=== PATIENT | female | born 1940 | race Caucasian/White ===

== ENCOUNTER → 2017-01-10 | Outpatient (CLI) | payer MEDICARE, BC ==
--- NOTE | 2017-01-10 11:14 | US ---
EXAMINATION TYPE: US thyroid st tissue head/neck DATE OF EXAM: 01/10/2017 COMPARISON: NONE CLINICAL HISTORY: E04.1 NONTOXIC SINGLE THYROID NODULE. Had prior US at former Dr [facility] GLAND SIZE: Right Lobe: 3.7 x 1.6 x 1.6 cm Overall Parenchyma: heterogenous Left Lobe: 33 x 1.4 x 0.9 cm Overall Parenchyma: heterogeneous Isthmus Thickness: 0.6 cm NODULES RIGHT: # of nodules measured on right: 2 1. 0.4 X 0.5 x 0.4 cm hypoechoic cystic nodule at the mid pole with well-defined margins; present w ith wall calcification. This nodule is wider than tall and shows no intranodular vascularity. Prior size: no prior US here 2. 0.6 X 0.4 x 0.3 cm hypoechoic cystic nodule at the lateral mid pole with well-defined margins. T his nodule is wider than tall and shows no intranodular vascularity. LEFT: # of nodules measured on left: 2 1. 0.4 X 0.3 x 0.3 cm hypoechoic cystic nodule at the lower lateral pole with well-defined margins. This nodule is wide as is tall and shows no intranodular vascularity. 2. 0.3 X 0.3 x 0.2 cm hypoechoic cystic nodule at the mid pole with well-defined margins; interrupte d peripheral calcification. This nodule is wider than tall and shows no intranodular vascularity. ISTHMUS: # of nodules measured in the isthmus: 0 Bilateral neck scanned, no evidence of lymphadenopathy. IMPRESSION: 1. Bilateral thyroid nodules all which measure less than 1 cm.
--- NOTE | 2017-01-10 12:18 | FL ---
EXAMINATION TYPE: FL barium swallow DATE OF EXAM: 01/10/2017 COMPARISON: 11/18/2010 HISTORY: Dysphasia TECHNIQUE: Single contrast barium swallow FINDINGS: 38 seconds of fluoroscopy provided. Barium was swallowed without difficulty and passed and the esophagus without delay. Occasional tertia ry contractions of esophagus. There is no evidence of hiatal hernia or gastroesophageal reflux. Degenerative change of the cervical spine noted. There was a posterior indentation of the cervical es ophagus C4-C5 level which could represent a prominent cricopharyngeus muscle. Correlate with direct v isualization as clinically warranted to exclude lesion. No obstruction identified. IMPRESSION: 1. Posterior indentation of the cervical esophagus at the level of C5 may be related to prominent cri copharyngeus muscle appears external most likely. Also appears to been present in 2010 with no signif icant interval change. Correlate with direct visualization as clinically warranted. 2. Occasional tertiary contractions of esophagus with no evidence of obstruction.
== END | disposition home or self-care (01) ==
LOC: RADUSWWP 10:21
PROVIDERS: ATTEND Family Medicine
DX: E04.2 Nontoxic multinodular goiter (principal); K22.8 Other specified diseases of esophagus; R13.13 Dysphagia, pharyngeal phase
CPT/HCPCS: 74220; 76536

== ENCOUNTER 2017-02-02 07:41 | Day surgery (SDC) | payer MEDICARE, BC ==
[2017-01-28 14:21] VITALS: BMI 35.9
[~2017-02-02 07:41] MED LIST: LACTATED RINGERS 1,000 ML IV SCH
[2017-02-02 08:01] VITALS: RESP 18; TEMP 97.3
[2017-02-02] MEDS ORDERED: LIDOCAINE 1% 20 ML VIAL (10MG/ML) FOR IV START INTRADERMA ONE (08:12)
[2017-02-02 08:14] LABS: Glucose,Whole Blood 121 mg/dL (75-99)
[2017-02-02] MEDS ORDERED: PROPOFOL 10 MG/ML 20 ML VIAL IV ONE (08:35)
--- NOTE | 2017-02-02 08:45 | P.PCN ---
Date of Procedure: 02/02/17 Preoperative Diagnosis: Postoperative Diagnosis: Procedure(s) Performed: BRIEF HISTORY: Patient is a 76-year-old, pleasant, white female, scheduled for an upper endoscopy as part of evaluation of intermittent dysphagia to solids for the last 6 months duration. Lately her symptoms are progressively getting worse and hence dysphagia almost on a daily basis with bread mate etc .She is hence scheduled for an upper endoscopy with possible dilation today.. PROCEDURE PERFORMED: Esophagogastroduodenoscopy with biopsy and dilation PREOPERATIVE DIAGNOSIS: Progressive dysphagia to solids. IV sedation per anesthesia. PROCEDURE: After informed consent was obtained, the patient was brought into the endoscopy unit. IV sedation was administered by Anesthesia under continuous monitoring. Initially the Olympus GIF-140 video endoscope was inserted into the mouth. Esophagus intubated without any difficulty. It was gradually advanced into the stomach and duodenum and carefully examined. The bulb and the second part of the duodenum appeared normal. The scope at this time was withdrawn to the stomach, adequately insufflated with air, and upon careful examination, mucosa of the antrum, body, cardia and the fundus appeared normal. The scope was then withdrawn into the esophagus. Small hiatal hernia seen. The GE junction was located at 39 cm from the incisors. There was a distal esophageal stricture identified and at this time balloon dilation was performed using 15 and 16.5 mm TTS balloon as sequential fashion for 90 seconds. Also there were erosions noted in the distal esophagus consistent with LA grade B reflux esophagitis. The rest of the esophagus appeared normal. Biopsies were done from the distal esophagus and the patient tolerated the procedure well. IMPRESSION: 1. Distal esophageal stricture status post balloon dilation using 15 and 16.5 mm TTS balloon as described above. 2. LA Grade B reflux esophagitis. The. Small hiatal hernia RECOMMENDATIONS: The findings of this examination were discussed with the patient as well as a family. She was advised to remain on a clear liquid diet today. She was given her perception for Prilosec 20 mg daily and educated about antireflux measures. Implants: Indications for Procedure: Operative Findings: Description of Procedure:
[2017-02-02 09:14] VITALS: BP 142/67; PULSE 52
== END 2017-02-02 09:56 | disposition home or self-care (01) ==
LOC: ORWHC2ENDO 07:41
PROVIDERS: ATTEND Internal Medicine Gastroenterology
DX: K22.2 Esophageal obstruction (principal); K21.0 Gastro-esophageal reflux disease with esophagitis; K44.9 Diaphragmatic hernia without obstruction or gangrene; I10 Essential (primary) hypertension; E78.5 Hyperlipidemia, unspecified; G43.909 Migraine, unspecified, not intractable, without status migrainosus; E11.9 Type 2 diabetes mellitus without complications; M06.9 Rheumatoid arthritis, unspecified; Z79.82 Long term (current) use of aspirin; Z79.899 Other long term (current) drug therapy; Z91.040 Latex allergy status; Z88.0 Allergy status to penicillin; Z88.8 Allergy status to other drugs, medicaments and biological substances; Z91.09 Other allergy status, other than to drugs and biological substances; Z87.891 Personal history of nicotine dependence
CPT/HCPCS: 88305; 43239; 43249; J2704; C1726

== ENCOUNTER → 2017-02-07 | Outpatient (CLI) | payer MEDICARE, BC ==
--- NOTE | 2017-02-07 10:48 | US ---
EXAMINATION TYPE: US abdomen complete DATE OF EXAM: 02/07/2017 COMPARISON: NONE CLINICAL HISTORY: 76-year-old female R14.0 Abdominal Distention. No pain, NPO TECHNIQUE: Multiple sonographic images of the abdomen are obtained. FINDINGS: Liver Length: 15.9 cm Gallbladder Wall: 0.2 cm CHD: 0.3 cm Spleen: 8.3 cm Right Kidney: 10.6 x 4.4 x 4.4 cm Left Kidney: 9.6 x 4.2 x 5.2 cm Pancreas: Somewhat heterogeneous. Head and tail not well seen due to overlying bowel gas Liver: Echogenic and attenuating. This limits assessment for focal lesion. Gallbladder: wnl Evidence for sonographic Preston's sign: neg CBD: wnl Spleen: wnl Right Kidney: No hydronephrosis Left Kidney: Prominent pyramids . No hydronephrosis. Upper IVC: Limited visualization Abd Aorta: No AAA as visualized IMPRESSION: Suspect at least moderate hepatic steatosis. Correlate with LFTs, lipid profile, and patient risk fac tors.
== END | disposition home or self-care (01) ==
LOC: RADUSWWP 07:23
PROVIDERS: ATTEND Family Medicine
DX: R14.0 Abdominal distension (gaseous) (principal); Z88.6 Allergy status to analgesic agent; Z88.0 Allergy status to penicillin; Z88.8 Allergy status to other drugs, medicaments and biological substances
CPT/HCPCS: 76700

== ENCOUNTER → 2017-06-20 | Day surgery (SDC) | payer MEDICARE, BC ==
[2017-06-20 13:34] VITALS: TEMP 97; BMI 36.3
[2017-06-20 15:01] VITALS: BP 168/65; PULSE 51; RESP 18
--- NOTE | 2017-06-20 17:00 | MM ---
EXAMINATION TYPE: MG stereo VAD BX RT DATE OF EXAM: 06/20/2017 COMPARISON: 06/02/2016 and 06/02/2017 CLINICAL HISTORY: 77-year-old female status post left-sided lumpectomy and radiation therapy for alondra st cancer. Microcalcifications in the right breast, referred for stereotactic core needle biopsy. TECHNIQUE: Stereotactic guided core biopsy of the right breast. FINDINGS: The procedure of stereotactic guided core biopsy was explained to the patient. Benefits, a lternatives, and risks were discussed. An informed consent was then obtained. [facility] was [facility]. Shortness pathway was a lateral approach. I performed t he localization localization followed by the procedure. A vacuum assisted biopsy gun was used to obt ain 6 core samples. The patient tolerated the procedure well without any immediate complication. The patient was kept in the radiology department for short stay after the procedure and then discharged home in stable condi tion. Targeted calcifications are identified in specimen mammogram. Post biopsy mammogram shows the clip to appear in satisfactory position relative to the targeted area of concern on the preprocedure images. There may be slight 5 mm of lateral clip migration. IMPRESSION: SUCCESSFUL, UNCOMPLICATED STEREOTACTIC GUIDED CORE BIOPSY OF RIGHT BREAST 8-9 O'CLOCK MICROCALCIFICAT IONS; FULL PATHOLOGY RESULTS TO FOLLOW.
== END ==
LOC: RADMAMWWP 13:03
PROVIDERS: ATTEND Student in an Organized Health Care Education/Training Program
DX: D24.1 Benign neoplasm of right breast (principal); N60.21 Fibroadenosis of right breast; R92.1 Mammographic calcification found on diagnostic imaging of breast; N60.01 Solitary cyst of right breast; R92.0 Mammographic microcalcification found on diagnostic imaging of breast; Z85.3 Personal history of malignant neoplasm of breast; Z88.8 Allergy status to other drugs, medicaments and biological substances; Z88.6 Allergy status to analgesic agent; Z91.040 Latex allergy status
CPT/HCPCS: 88305; 19081; A4648; J2001; 88341; 88342

== ENCOUNTER → 2017-12-30 | Outpatient (CLI) | payer MEDICARE, BC ==
--- NOTE | 2017-12-30 13:29 | MR ---
EXAMINATION TYPE: MR lumbar spine wo con DATE OF EXAM: 12/30/2017 COMPARISON: NONE HISTORY: Spinal stenosis, lumbar region per order. Back pain up and down right side into right lower extremity for 1.5 years per patient. TECHNIQUE: Multiplanar, multisequence imaging of the lumbar spine is performed without IV contrast. FINDINGS: Survey images shows artifact from left hip surgery. Sagittal images of the lumbar spine lane w vertebral body heights to appear satisfactory. There is subtle grade 1 anterolisthesis of L4 on L5. Multilevel disc desiccation is seen. There is disc space narrowing with posterior spur disc complexe s effacing anterior thecal sac at T10-T11 and T11-T12 levels in the lower thoracic spine. Spinal cord effacement anteriorly and posteriorly is noted sagittal image 7. The conus medullaris is normal in p osition and signal ending inferior L1 level. The bone marrow signal intensity is within normal limit s. Moderate multilevel spurring in the lower thoracic spine is present. Axial images beginning at labeled T12-L1 level and shows broad-based posterior disc protrusion effaci ng anterior thecal sac and mild facet degenerative changes bilaterally but spinal canal is preserved and bilateral neural foramina are patent. Axial images at L1-L2 level show mild facet degenerative changes bilaterally and less prominent mild broad disc bulge mildly effacing anterior thecal sac. There is mild to moderate bilateral anterior in ferior neural foraminal narrowing at this level identified. Axial images at L2-L3 level show mild to moderate facet degenerative changes bilaterally. Spinal jaida l is preserved. Bilateral neural foramina are patent. Axial images at L3-L4 level show moderate to advanced facet degenerative changes and ligamentum flavu m hypertrophy effacing posterior lateral thecal sac inferiorly on axial image 12. There is broad disc bulge effacing anterior thecal sac on axial image 13. There is mild to moderate bilateral anterior i nferior neural foraminal narrowing at this level identified. Axial images at L4-L5 levels show spondylolisthesis and moderate to advanced facet degenerative sanders es bilaterally. There is mild effacement anterior thecal sac due to central disc herniation. Bilatera l neural foramina are patent. Axial images at L5-S1 level show advanced facet degenerative changes bilaterally. There is broad disc bulge mildly effacing anterior thecal sac on axial image 2. Bilateral neural foramina are patent. There is partial visualization of thin-walled cystic change in the upper right pelvis measuring great er than 1 cm, advise further imaging or correlation with pelvic ultrasound and possibly CT based on u ltrasound results. Some diverticula are suspected in visualized sigmoid colon at this level. IMPRESSION: Multilevel degenerative changes in lumbar spine as detailed above. Prominent spinal canal effacement or stenosis is at the labeled T10-T11 level. Consider dedicated thoracic spine MRI to bet ter evaluate and characterize. Other findings as noted above.
== END | disposition home or self-care (01) ==
LOC: RADMRIMAIN 12:35
PROVIDERS: ATTEND Family Medicine
DX: M47.816 Spondylosis without myelopathy or radiculopathy, lumbar region (principal)
CPT/HCPCS: 72148

== ENCOUNTER → 2018-02-17 | Outpatient (CLI) | payer MEDICARE, BC ==
--- NOTE | 2018-02-20 09:08 | MM ---
Reason for exam: follow-up at short interval from prior study. Last mammogram was performed 9 months ago. History: Patient is postmenopausal and has history of breast cancer at age 69. Benign MG stereo VAD BX RT of the right breast, June 20, 2017. Malignant left breast needle localization of the left breast, November 14, 2009. Malignant left US cyst aspiration of the left breast, October 30, 2009. US Left Guided VAD of the left breast, October 30, 2009. Malignant US left guided VAD of the left breast, October 30, 2009. Left Mammotome Panel of the left breast, April 15, 2005. Took hormonal contraceptives for 1 year 6 months beginning at age 25. Took antineoplastic beginning at age 69. Physical Findings: Nurse did not find any significant physical abnormalities on exam. MG 3D Diag Mammo W/Cad RT CC, XCCL, and ML view(s) were taken of the right breast. Prior study comparison: June 02, 2017, bilateral MG 3d diag mammo w/cad ELLA. June 02, 2016, bilateral MG 3d diag mammo w/cad ELLA. The breast tissue is heterogeneously dense. This may lower the sensitivity of mammography. Finding: There are typically benign round calcifications in the right breast. Previous mammotome biopsy in the right breast. There is no discrete abnormality. Benign right axillary lymph nodes redemonstrated. These results were verbally communicated with the patient and result sheet given to the patient on 02/17/18. ASSESSMENT: Benign, BI-RAD 2 RECOMMENDATION: Follow-up diagnostic mammogram of both breasts in 4 months. Back on schedule for June 2018.
== END | disposition home or self-care (01) ==
LOC: RADMAMWWP 11:38
PROVIDERS: ATTEND Family Medicine
DX: Z08 Encounter for follow-up examination after completed treatment for malignant neoplasm (principal); Z85.3 Personal history of malignant neoplasm of breast
CPT/HCPCS: 77065; G0279; 77061

== ENCOUNTER → 2018-08-03 | Outpatient (CLI) | payer MEDICARE, BC ==
--- NOTE | 2018-08-03 12:09 | MM ---
Reason for exam: additional evaluation requested from prior study. Last mammogram was performed 5 months ago. History: Patient is postmenopausal and has history of breast cancer at age 69. Benign MG stereo VAD BX RT of the right breast, June 20, 2017. Malignant left breast needle localization of the left breast, November 14, 2009. Malignant left US cyst aspiration of the left breast, October 30, 2009. US Left Guided VAD of the left breast, October 30, 2009. Malignant US left guided VAD of the left breast, October 30, 2009. Left Mammotome Panel of the left breast, April 15, 2005. Took hormonal contraceptives for 1 year 6 months beginning at age 25. Took antineoplastic beginning at age 69. Physical Findings: Nurse did not find any significant physical abnormalities on exam. MG 3D Diag Mammo W/Cad ELLA Bilateral CC and MLO view(s) were taken. Prior study comparison: February 17, 2018, right breast MG 3d diag mammo w/cad RT. June 02, 2017, bilateral MG 3d diag mammo w/cad ELLA. There are scattered fibroglandular densities. Right biopsy marker noted. Post therapy changes on the left. These results were verbally communicated with the patient and result sheet given to the patient on 08/03/18. ASSESSMENT: Benign, BI-RAD 2 RECOMMENDATION: Follow-up diagnostic mammogram of both breasts in 1 year.
== END | disposition home or self-care (01) ==
LOC: RADMAMWWP 10:38
PROVIDERS: ATTEND Internal Medicine Hematology & Oncology
DX: R92.8 Other abnormal and inconclusive findings on diagnostic imaging of breast (principal); Z85.3 Personal history of malignant neoplasm of breast
CPT/HCPCS: 77066; G0279; 77062

== ENCOUNTER → 2019-08-10 | Outpatient (CLI) | payer MEDICARE, BC ==
--- NOTE | 2019-08-13 08:12 | MM ---
Reason for exam: additional evaluation requested from prior study. Last mammogram was performed 1 year ago. History: Patient is postmenopausal and has history of breast cancer at age 69. Benign MG stereo VAD BX RT of the right breast, June 20, 2017. Malignant left breast needle localization of the left breast, November 14, 2009. Malignant left US cyst aspiration of the left breast, October 30, 2009. US Left Guided VAD of the left breast, October 30, 2009. Malignant US left guided VAD of the left breast, October 30, 2009. Left Mammotome Panel of the left breast, April 15, 2005. Took hormonal contraceptives for 1 year 6 months beginning at age 25. Took antineoplastic beginning at age 69. Physical Findings: Nurse did not find any significant physical abnormalities on exam. MG 3D Diag Mammo W/Cad ELLA Bilateral CC and MLO view(s) were taken. Prior study comparison: August 03, 2018, bilateral MG 3d diag mammo w/cad ELLA. February 17, 2018, right breast MG 3d diag mammo w/cad RT. The breast tissue is heterogeneously dense. This may lower the sensitivity of mammography. Previous mammotome biopsy in the right breast. There is architectural distortion from lumpectomy in the left breast, stable, unchanged from 2015. These results were verbally communicated with the patient and result sheet given to the patient on 08/10/19. ASSESSMENT: Benign, BI-RAD 2 RECOMMENDATION: Follow-up diagnostic mammogram of both breasts in 1 year.
== END | disposition home or self-care (01) ==
LOC: RADMAMWWP 14:52
PROVIDERS: ATTEND Internal Medicine Hematology & Oncology
DX: Z08 Encounter for follow-up examination after completed treatment for malignant neoplasm (principal); Z85.3 Personal history of malignant neoplasm of breast
CPT/HCPCS: 77066; G0279; 77062

== ENCOUNTER → 2020-12-09 | Outpatient (CLI) | payer MEDICARE, BC | END | disposition home or self-care (01) | LOC: LABWHC1 12:36 | PROVIDERS: ATTEND Orthopaedic Surgery | DX: Z01.812 Encounter for preprocedural laboratory examination (principal) | CPT/HCPCS: 87070 ==

== ENCOUNTER → 2020-12-22 | Outpatient (CLI) | payer MEDICARE, BC ==
--- NOTE | 2020-12-23 09:06 | MM ---
Reason for exam: additional evaluation requested from prior study. Last mammogram was performed 1 year and 4 months ago. History: Patient is postmenopausal and has history of breast cancer at age 69. Benign MG stereo VAD BX RT of the right breast, June 20, 2017. Malignant left breast needle localization of the left breast, November 14, 2009. Malignant left US cyst aspiration of the left breast, October 30, 2009. US Left Guided VAD of the left breast, October 30, 2009. Malignant US left guided VAD of the left breast, October 30, 2009. Left Mammotome Panel of the left breast, April 15, 2005. Took hormonal contraceptives for 1 year 6 months beginning at age 25. Took antineoplastic beginning at age 69. Physical Findings: Nurse did not find any significant physical abnormalities on exam. MG 3D Diag Mammo W/Cad ELLA Bilateral CC and MLO view(s) were taken. Prior study comparison: August 10, 2019, bilateral MG 3d diag mammo w/cad ELLA. August 03, 2018, bilateral MG 3d diag mammo w/cad ELLA. There are scattered fibroglandular densities. Multiple right axilla tail nodules most likely reactive lymph nodules. Benign appearing since 08/03/18. Left heterogeneous, amorphous calcifications behind left nipple, 2.5cm posterior position, suspicious. Severe deformity from prior left breast surgeries. This finding is changed when compared with previous exams. These results were verbally communicated with the patient and result sheet given to the patient on 12/22/20. ASSESSMENT: Suspicious, BI-RAD 4 RECOMMENDATION: Surgical consultation and stereotactic core biopsy of the left breast. Patient recommended for surgical consult for left breast biopsy. Nurse reviewed with patient and daughter. Patient scheduled to have hip surgery 01/05/21, daughter states will schedule surgical consult with patient's breast surgeon Dr. Koenig out of [place] after patient is recovered from surgery and done with rehab. Notified Dr. Beltrán's office. Called Dr. Beltrán's office with mammographic findings. PRELIMINARY REPORT CALLED AND FAXED TO DR. BELTRÁN ON 12/23/20.
== END | disposition home or self-care (01) ==
LOC: RADMAMWWP 12:59
PROVIDERS: ATTEND Internal Medicine Hematology & Oncology
DX: Z08 Encounter for follow-up examination after completed treatment for malignant neoplasm (principal); Z85.3 Personal history of malignant neoplasm of breast
CPT/HCPCS: 77066; G0279; 77062

== ENCOUNTER → 2020-12-24 | Outpatient (CLI) | payer MEDICARE, BC ==
[2020-12-24 15:16] LABS: HGB 13.6 gm/dL (11.4-16.0); MCH 30.7 pg (25.0-35.0); MCV 87.9 fL (80.0-100.0); Mean Platelet Volume 8.2; Platelet Count 178 k/uL (150-450); RBC 4.44 m/uL (3.80-5.40); RDW 13.7 % (11.5-15.5)
[2020-12-24 15:22] LABS: Appearance,Urine Cloudy (Clear); Bacteria,Urine Occasional /hpf; Bilirubin,Urine Negative (Negative); Blood,Urine Negative (Negative); Color,Urine Yellow; Glucose,Urine (UA) Negative (Negative); Hyaline Casts,Urine 4 /lpf (0-2); Ketones,Urine Negative (Negative); Leukocyte Esterase,Urine Large (Negative); Mucus,Urine Many /hpf; Nitrite,Urine Negative (Negative); Protein,Urine 1+ (Negative); RBC,Urine 2 /hpf (0-5); Specific Gravity,Urine 1.025 (1.001-1.035); Squamous Epithelial Cell,Urine 10 /hpf (0-4); Urobilinogen,Urine <2.0 mg/dL (<2.0); WBC,Urine 11 /hpf (0-5)
[2020-12-24 15:32] LABS: Partial Thromboplastin Time 22.8 sec (22.0-30.0); Prothrombin Time 10.4 sec (9.0-12.0)
== END | disposition home or self-care (01) ==
LOC: LABPAT 13:53
PROVIDERS: ATTEND Orthopaedic Surgery
DX: Z01.818 Encounter for other preprocedural examination (principal); M16.11 Unilateral primary osteoarthritis, right hip; R00.1 Bradycardia, unspecified
CPT/HCPCS: 81001; 85027; 85610; 85730; 93005

== ENCOUNTER → 2020-12-24 | Outpatient (CLI) | payer MEDICARE, BC ==
[2020-12-25 03:35] LABS: African American GFR (CKD) 79.6 (60.0-200.0); Albumin 4.4 g/dL (3.80-4.90); Albumin/Globulin Ratio 1.83 (1.60-3.17); Anion Gap 10.8 mmol/L (4.00-12.00); BUN/Creat Ratio 23.75 Ratio (12.00-20.00); C Reactive Protein 0.4 mg/dL (0.0-0.8); Calcium 9.8 mg/dL (8.7-10.3); Carbon Dioxide 24.2 mmol/L (21.6-31.8); Chol/HDL Ratio 6.38; Globulin 2.4 g/dL (1.6-3.3); Non-African American GFR(CKD) 68.7 (60.0-200.0); Potassium 4.6 mmol/L (3.5-5.5); Total Bilirubin 0.6 mg/dL (0.3-1.2); Total Protein 6.8 g/dL (6.2-8.2)
== END | disposition home or self-care (01) ==
LOC: LABWHC1 13:56
PROVIDERS: ATTEND Family Medicine
DX: Z00.00 Encounter for general adult medical examination without abnormal findings (principal); M19.049 Primary osteoarthritis, unspecified hand
CPT/HCPCS: 36415; 80053; 80061; 85652; 86038; 86140; 86431

== ENCOUNTER 2021-01-05 10:57 | Inpatient (IN) | payer MEDICARE, BC ==
[2020-12-31 09:15] VITALS: BMI 35.3
[~2021-01-05 10:57] MED LIST changes: +HYDROmorphone 0.5 MG/0.5 ML SYRINGE IVP PRN; -LACTATED RINGERS 1,000 ML IV SCH; +ONDANSETRON 4 MG/2 ML VIAL IVP ONE; +ROPIVACAINE 246.25 MG, EPINEPHrine 0.5 MG, cloNIDine HCL/PF 80 MCG, WATER FOR INJECTION... MISCELLANE PRN
[2021-01-05] MEDS: LACTATED RINGERS 1,000 ML IV SCH ×2 (12:20→18:23)
[2021-01-05] MEDS ORDERED: MIDAZOLAM 2 MG/2 ML VIAL ONE (12:41)
[2021-01-05] MEDS ORDERED: PROPOFOL 10 MG/ML 20 ML VIAL IV ONE (12:41)
[2021-01-05] MEDS ORDERED: TRANEXAMIC ACID 1,000 MG/10 ML VIAL ONE (12:41)
[2021-01-05] MEDS ORDERED: fentaNYL (PF) 50 MCG/ML 2 ML AMP ONE (12:41)
[2021-01-05] MEDS ORDERED: NEOSTIGMINE 1 MG/ML 10 ML VIAL ONE (12:41)
[2021-01-05] MEDS ORDERED: ePHEDrine SULFATE/0.9% NACL/PF 50 MG/5 ML SYRINGE IV ONE (12:41)
[2021-01-05] MEDS ORDERED: SODIUM CHLORIDE 0.9% 100 ML BAG ONE (12:41)
[2021-01-05] MEDS ORDERED: LIDOCAINE 1% INJ 10MG/ML (20 ML MDV) ONE (12:41)
[2021-01-05] MEDS ORDERED: SUCCINYLCHOLINE CHLORIDE 100 MG/5 ML SYR IV ONE (12:41)
[2021-01-05] MEDS ORDERED: GLYCOPYRROLATE 0.2 MG/ML 2 ML VIAL ONE (12:41)
[2021-01-05] MEDS ORDERED: ROCURONIUM 10 MG/ML (5 ML VIAL) IV ONE (12:41)
--- NOTE | 2021-01-05 13:03 | P.OP ---
Date of Procedure: 01/05/21 Procedure(s) Performed: PREOPERATIVE DIAGNOSIS: Right hip severe osteoarthritis POSTOPERATIVE DIAGNOSIS: Right left hip severe osteoarthritis OPERATION: Right hip total replacement arthroplasty (hybrid implantation with metal on polyethylene articulation). ANESTHESIA: Spinal ESTIMATED BLOOD LOSS: 75 ml. FIRST AID TEACHER: Johanny Kohler PA-C (assistance with: patient positioning, retraction, exposure, hemostasis, leg positioning, implantation, irrigation, closure, dressing) COMPLICATIONS: None apparent. COMPONENTS IMPLANTED: Kirby continuum acetabular cup with cluster holes; continuum longevity 15 elevated liner, 32 mm inner diameter; Kirby VerSys femoral stem; VerSys 32 mm femoral head with +0 mm neck length extension INDICATIONS: Mrs. Avila is a 80-year-old female with significant end-stage osteoarthritis involving the right hip and commensurate severe symptoms. She successfully underwent left hip replacement approximately 5 years ago. She presents to the operating room today for total hip replacement. I have discussed the steps of the operation as well as potential risks and complications as being inclusive of, but not limited to: Leading, infection, scarring, discomfort, or vessel and/or nerve damage, need for further surgery, loosening, dislocation, wear, osteolysis, limb length inequality, fracture, blood clot, pulmonary embolism, , persistent limp, and other risks. The patient is aware of these risks and wishes to proceed with surgery and has signed a consent form. PROCEDURE: After appropriate consent was obtained, the patient was taken to the operating room and placed in supine position. Spinal anesthetic was administered and after confirmation of adequate anesthesia, the patient was placed into the lateral decubitus position with the right side up. Care was taken to make sure that all pressure points were adequately padded and the patient was stabilized to the table with a [place] hip positioner. The right hip was prepped and draped in the usual aseptic fashion using a combination of ChloraPrep and alcohol. [place] drape was used for the case and the patient received intravenous antibiotics prior to the incision. Timeout was called, confirming patient identity, side, procedure, availability of implants, and administration of IV antibiotics. The incision was created directly over the greater trochanter and carried slightly posteriorly for a posterior approach to the hip. The incision was then deepened down to subcutaneous tissue and fascia liana. Fascia liana was split in line with the incision and split proximally along the fibers of the gluteus jim. The underlying fibers of the muscle were teased apart using finger dissection and bleeding vessels were picked up and coagulated. Retractor was then placed posteriorly consisting of a blunt [place]. The short external rotators and capsule were exposed using good visualization of the attachment of the external rotators to the femur was established. The short external rotators and capsule were released using electrocautery from their femoral attachments. A hockey stick shaped incision was created in the capsule. Joint fluid was evacuated and the patient's hip was able to be dislocated fairly easily. The patient's femoral head was severely arthritic. The femoral neck cut was created approximately 1 cm superior to the lesser trochanter using a reciprocating saw. The femoral head and neck fragment was removed and attention was then directed to the acetabulum. An anterior acetabular retractor was applied followed by posterior retraction of the capsule with a Meyerding retractor. This afforded good visualization into the acetabular cavity. End-stage arthritis was noted. Soft tissue was removed and residual cartilage within the acetabular vault was removed using a curette. Labrum was removed using a long-handled knife. Attention was then directed to reaming. The size 44 reamer was used first, followed by increasing increments until the final size reamer was used. Please see the implantation sheet for exact sizes used for the components. Once the final reamer had been utilized to expand the socket it was noted that there was a good supportive bone around the acetabular socket and no further reaming needed to be performed. The trial the same size as the last reamer used was then impacted into the acetabular vault and found to have good fit. The acetabular size, one size (2mm) greater than the trial was then called for. The cluster holes were placed posteriorly and the component was impacted in a position of approximately 40 degrees abduction and 20 degrees anteversion. This matched this patient's [place] anteversion and it was noted that the cup had excellent stability. A 15 elevated liner was inserted with the elevation posterior superior. Anesthetic solution consisting of ropivacaine with epinephrine, clonidine, and ketorolac was injected in a grid-type fashion around the anterior capsule, posterior capsule, abductor fascia, fascia liana, subcutaneous tissues, and trochanteric bursa. This solution was injected periodically throughout the case depending on the exposure. Attention was then directed back to the proximal femur. Retractors were placed around the proximal femur and box osteotome was used followed by canal finder and trochanteric reamer. Cylindrical reaming was performed. Progressive broaching was then performed starting with a #10 broach and progressing final size, in a position of 10-15 degrees anteversion. [place] anteversion was within 5 degrees of stem position. The final size broach had excellent fit and fill of the patient's metaphysis and diaphysis. Trial reduction was then performed starting with size 32 mm femoral head and various neck combination of stability, limb length equality, and soft tissue tension. Trial components were then removed. Canal plug was inserted, and cement was mixed on the back table and allowed to reach a doughy consistency. The canal was pulse lavaged and brushed with a canal brush. Cement was then inserted retrograde into the canal and pressurized several times with thumb pressurization technique. The femoral stem component was impacted into position. Excess cement was removed. The cement was allowed to harden completely. The implant fit very well and had excellent stability. The femoral head was then impacted onto the Phillips taper. Blood and debris were removed from the acetabular component and the hip was then reduced and checked for stability, limb length and soft tissue tension. These parameters found to be satisfactory, the wound was then thoroughly irrigated with normal saline. Final hemostasis was obtained using electrocautery and IV tranexamic acid, 1 g given at the time of prepping and draping, and another 1 g given at the time of closure. Closure of the capsule was performed meticulously using #3 Vicryl suture. Four [id number] sutures were placed in the posterior capsule along with repair of the external rotators. The fascia liana was then repaired using combination of #3 Vicryl suture in interrupted fashion and Quill and runni ng fashion. 2-0 Vicryl suture was used for the subcutaneous tissues and 3-0 Quill for the skin. Dermabond tape was then applied. The patient tolerated the procedure well. There were no complications and the wound bed was dry and there was no need for drain placement. Sterile dressing was then applied and the patient was carefully removed from the operating room table, placed on the stretcher and was taken to the recovery room in stable condition. Sponge and needle counts were correct.
[2021-01-05] MEDS ORDERED: TRANEXAMIC ACID 1,000 MG in SODIUM CHLORIDE 0.9% 100 ML IVPB ONE ×2 (13:26→13:27)
[2021-01-05] MEDS ORDERED: ROPIVACAINE 246.25 MG, EPINEPHrine 0.5 MG, cloNIDine HCL/PF 80 MCG, WATER FOR INJECTION... MISCELLANE PRN ×4 (13:30)
[2021-01-05] MEDS ORDERED: ceFAZolin 3,000 MG in SODIUM CHLORIDE 0.9% IRRIGATIO 3,000 ML IRRIGATION ONE (13:37)
[2021-01-05] MEDS ORDERED: LACTATED RINGERS 1,000 ML IV ONE (14:45)
[2021-01-05] MEDS ORDERED: traMADol 50 MG TAB PO PRN (14:56)
[2021-01-05] MEDS ORDERED: HYDROmorphone 0.5 MG/0.5 ML SYRINGE IVP PRN ×2 (14:56)
[2021-01-05] MEDS ORDERED: ONDANSETRON 4 MG/2 ML VIAL IVP PRN (14:56)
[2021-01-05] MEDS ORDERED: HYDROmorphone 0.2 MG/1 ML SYRINGE IVP PRN (14:56)
[2021-01-05] MEDS ORDERED: NALOXONE 0.4 MG/ML 1 ML VIAL IV PRN (14:56)
[2021-01-05] MEDS ORDERED: MAGNESIUM HYDROXIDE 2,400 MG/10 ML CUP PO PRN (14:56)
--- NOTE | 2021-01-05 15:21 | XR ---
EXAMINATION TYPE: XR Hip Limited RT DATE OF EXAM: 01/05/2021 COMPARISON: NONE HISTORY: Postop TECHNIQUE: One view submitted. FINDINGS: There is postsurgical change in near anatomic alignment. There is soft tissue edema and emphysema. IMPRESSION: 1. Postoperative change. Appears in near-anatomic alignment.
[2021-01-05] MEDS ORDERED: LABETALOL SYRINGE 5 MG/ML IVP ONE (15:48)
[2021-01-05] MEDS ORDERED: ARTIFICIAL TEARS-HYPROMELLOSE DROPS 15 ML BTL BOTH EYES PRN (16:39)
--- NOTE | 2021-01-05 16:46 | P.CONS ---
History of Present Illness - Reason for Consult Consult date: 01/05/21 - History of Present Illness History of Presenting Illness: Patient is a very pleasant 80-year-old female with a past medical history of hypertension, chronic dry eyes status post bilateral cataract removal surgery, and advanced osteoarthritis. Patient is currently admitted under orthopedic surgery team where she underwent a right total hip arthroplasty with hybrid implantation with metal on polyethylene articulation secondary to severe right hip osteoarthritis. We have been consulted for continued medical management. Upon assessment, patient returned from OR with noted bradycardia with HR 48. She reports feeling slight postoperative pain in her right hip and knee and a tickle in the back of her throat. Patient tolerating oral fluids at this time and diet to be advanced as patient tolerates. Patient denies having any dizziness, lightheadedness, changes in vision or hearing, dysphasia, chest pain, palpitations, shortness of breath, abdominal pain, or nausea. Review of systems: Pertinent positives and negatives as discussed in HPI, a complete review of systems was performed and all other systems are negative. Physical exam: General: non toxic, no distress, appears at stated age Derm: warm, dry. Postsurgical dressing to right hip and place, currently clean dry and intact with no signs of postoperative bleeding. Head: atraumatic, normocephalic, symmetric Eyes: no lid lag, anicteric sclera. Mouth: no lip lesion, mucus membranes moist Cardiovascular: S1-S2 regular with bradycardic rate and regular rhythm. Murmur present. No gallops or rubs noted. Posterior tibial pulses palpated bilaterally. Cap refill less than 2 seconds. Lungs: Respirations even, regular, and unlabored on room air. Lungs clear to auscultation bilaterally with no wheezes, rhonchi, or rales noted. No accessory muscle usage. Abdominal: soft, nontender to palpation, no guarding, no appreciable organomegaly Ext: No edema, RLE atrophy/ankle deformity Neuro: GCS 15. Speech clear. CN II-XI grossly intact, no focal neuro deficits Psych: Alert, oriented, appropriate affect Assessment and Plan of Care: Bradycardia -Patient bradycardic status post surgical procedure, possibly secondary to effect of anesthesia vs effect of daily beta kemi use. -Continuous telemetry monitoring -We will continue to monitor closely. -Parameters placed on atenolol to hold for heart rate less than 55 and notify provider for further orders. Hypertension -Monitor vital signs and continue daily medication management with atenolol 25 m g twice daily. -Heart healthy diet. Chronic dry eyes status post cataract removal surgery -Artificial tears 2 drops both eyes 4 times daily as needed for dry. Status post total right hip arthroplasty -Surgical procedure completed by Dr. Figueroa on 01/05/21. -Wound care, pain management, PT/OT, weightbearing, and DVT prophylaxis per primary admitting orthopedic surgery team. Thank you for allowing us to participate in the care of this pleasant patient. Do not hesitate to contact us with questions. Someone can be reached from the [facility] hospitalist group all hours of the day at [phone] or via [employer]. Past Medical History Past Medical History: Cancer, Diabetes Mellitus, GERD/Reflux, Hyperlipidemia, Hypertension, Myocardial Infarction (CO), Osteoarthritis (OA), Rheumatoid Arthritis (RA) Additional Past Medical History / Comment(s): migraines, left breast cancer 2009- radiation treatments, DIABETIC -CONTROLLED WITH DIET "borderline", [place] x 2-"years ago", heart murmer, hiatal hernia, constipation, 'brown age spots", "some difficulty swallowing pills", radiation tx left eye to "remove film", bad rt knee Last Myocardial Infarction Date:: unknown History of Any Multi-Drug Resistant Organisms: None Reported Past Surgical History: Breast Surgery, Hysterectomy, Joint Replacement, Orthopedic Surgery Additional Past Surgical History / Comment(s): left breast lumpectomy, left knee arthroscopy, chelsie cataracts, rt hand surgery-tumor removed from index finger, LEFT HIP REPLACEMENT, EGD with dilation Past Anesthesia/Blood Transfusion Reactions: Previous Problems w/ Anesthesia, Motion Sickness, Postoperative Nausea & Vomiting (PONV) Additional Past Anesthesia/Blood Transfusion Reaction / Comm: "after EGD I had dislocated jaw, ear ache for 3 weeks and dislocated rt shoulder-not sure what happened", "I vomited for 2 days after hip surgery" Smoking Status: Former smoker - Past Family History Father Family Medical History: Cancer Daughter(s) Family Medical History: Cancer Additional Family Medical History / Comment(s): skin Medications and Allergies Home Medications Medication Instructions Recorded Confirmed Type Aspirin [Adult Low Dose Aspirin EC] 81 mg PO DAILY 10/08/15 12/31/20 History Cholecalciferol [Vitamin D3 (25 1,000 unit PO DAILY 10/08/15 12/31/20 History Mcg = 1000 Iu)] Multivit-Min/FA/Lycopen/Lutein 1 tab PO DAILY 10/08/15 12/31/20 History [Centrum Silver Tablet] [place]-3 Fatty Acids/Fish Oil [Fish 1 cap PO DAILY 10/08/15 12/31/20 History Oil 1,000 mg Softgel] Red Yeast Rice 1,200 mg PO DAILY 10/08/15 12/31/20 History Vit A/Vit C/Vit E/Zinc/Copper 2 cap PO DAILY 10/08/15 12/31/20 History [ICAPS SOFTGEL] Docusate [Colace] 200 mg PO HS 01/28/17 12/31/20 History Aspirin/Calcium Carbonate/Mag 325 mg PO DAILY PRN 12/31/20 12/31/20 History [Buffered Aspirin 325 mg Tb] Garlic 1 each PO DAILY 12/31/20 12/31/20 History atenoloL [Atenolol] 25 mg PO BID 12/31/20 12/31/20 History Aspirin [Adult Low Dose Aspirin EC] 81 mg PO BID #1 tablet. 01/05/21 Rx Sennosides-Docusate Sodium 1 tab PO BID #60 tablet 01/05/21 Rx [Senokot-S] Sulfamethox-Tmp 800-160Mg [Bactrim 1 tab PO Q12HR 01/05/21 01/05/21 History DS 800-160 mg] traMADol HCL [Ultram] 50 mg PO Q6HR PRN #28 tab 01/05/21 Rx Allergies Allergy/AdvReac Type Severity Reaction Status Date / Time acetaminophen [From Tylenol] Allergy Unknown Verified 01/05/21 11:52 atorvastatin calcium Allergy muscle pain Verified 01/05/21 11:52 [From Lipitor] celecoxib [From Celebrex] Allergy Rash/Hives Verified 01/05/21 11:52 duloxetine Allergy Unknown Verified 01/05/21 11:52 escitalopram Allergy Unknown Verified 01/05/21 11:52 iodine Allergy Swelling Verified 01/05/21 11:52 latex Allergy throat Verified 01/05/21 11:52 swelling,rash naproxen sodium [From Aleve] Allergy migraines Verified 01/05/21 11:52 niacin Allergy Rash/Hives Verified 01/05/21 11:52 Penicillins Allergy Rash/Hives Verified 01/05/21 11:52 povidone-iodine Allergy Rash/Hives Verified 01/05/21 11:52 [From Betadine] simvastatin Allergy Unknown Verified 01/05/21 11:52 warfarin sodium AdvReac Vomiting Verified 01/05/21 11:52 [From Coumadin] ceptra Allergy Unknown Uncoded 01/05/21 11:52 excedrin Allergy Unknown Uncoded 01/05/21 11:52 ivory soap Allergy Unknown Uncoded 01/05/21 11:52 Physical Exam Vitals: Vital Signs Temp Pulse Pulse Resp BP Pulse Ox 01/05/21 16:01 49 L 16 167/70 93 L 01/05/21 15:45 50 L 18 179/74 96 01/05/21 15:31 53 L 18 181/74 94 L 01/05/21 15:15 59 L 16 200/77 100 01/05/21 14:57 96.8 F L 60 14 183/73 99 01/05/21 12:09 97.5 F L 58 L 16 177/76 94 L Intake and Output 01/05/21 01/05/21 01/05/21 06:59 14:59 22:59 Intake Total 1051 300 Output Total 75 Balance 976 300 Intake: IV 1051 300 Output: Estimated Blood Loss 75
[2021-01-05] MEDS: atenoloL 25 MG TAB PO SCH (20:23)
[2021-01-05] MEDS: ASPIRIN 81 MG PO SCH (20:23)
[2021-01-05] MEDS: SENNOSIDES-DOCUSATE SODIUM 1 EACH TAB PO SCH (20:23)
[2021-01-06] MEDS: LACTATED RINGERS 1,000 ML IV SCH ×4 (00:28→20:56)
[2021-01-06] MEDS: ASPIRIN 81 MG PO SCH ×2 (08:45→20:56)
[2021-01-06] MEDS: CALCIUM CARBONATE 500 MG CHEWABLE PO PRN (08:45)
[2021-01-06] MEDS: atenoloL 25 MG TAB PO SCH ×2 (08:45→20:56)
--- NOTE | 2021-01-06 09:02 | P.DS ---
Providers Expected date of discharge: 01/06/21 Attending physician: Nickolas Figueroa Consults: 01/05/21 14:56 Consult Physician Routine Consulting Provider: Keily Sandoval Consult Reason/Comments: Medical management Do you want consulting provider notified?: Yes Primary care physician: Evon Card MD - Discharge Diagnosis(es) (1) Osteoarthritis of right hip Current Visit: Yes Status: Acute (2) S/P total hip arthroplasty Current Visit: Yes Status: Acute Hospital Course: This is an 80-year-old female with known history of degenerative arthritis of the right hip. The patient presented for evaluation as an outpatient. After discussion and consideration patient elects to proceed with total hip arthroplasty. The patient is seen preoperatively by Dr. Figueroa and medically cleared for surgery by their primary care physician. Patient is admitted to [facility] on 01/05/2021 for total hip arthroplasty. The procedure is performed without complication or sequelae. The patient is doing well postoperatively. Labs and vital signs are stable on day of discharge. On day of discharge patient's hip incision is healing well. There is minimal erythema. There is no drainage noted at this time. There is minimal soft tissue swelling to the hip and thigh. Patient has full foot and ankle motion without difficulty or pain. Calf is soft and nontender to palpation. Neurovascular status to the right lower extremity is intact. Patient is discharged to rehab in good condition. Please see med rec for accurate list of home medications. Plan - Discharge Summary Discharge Rx Participant: No New Discharge Prescriptions: New Aspirin [Adult Low Dose Aspirin EC] 81 mg PO BID #1 tablet.dr Zaldivar-Docusate Sodium [Senokot-S] 1 tab PO BID #60 tablet traMADol HCL [Ultram] 50 mg PO Q6HR PRN #28 tab PRN Reason: Pain No Action Red Yeast Rice 1,200 mg PO DAILY Vit A/Vit C/Vit E/Zinc/Copper [ICAPS SOFTGEL] 2 cap PO DAILY Multivit-Min/FA/Lycopen/Lutein [Centrum Silver Tablet] 1 tab PO DAILY Cholecalciferol [Vitamin D3 (25 Mcg = 1000 Iu)] 1,000 unit PO DAILY [place]-3 Fatty Acids/Fish Oil [Fish Oil 1,000 mg Softgel] 1 cap PO DAILY Aspirin [Adult Low Dose Aspirin EC] 81 mg PO DAILY Docusate [Colace] 200 mg PO HS Sulfamethox-Tmp 800-160Mg [Bactrim DS 800-160 mg] 1 tab PO Q12HR atenoloL [Atenolol] 25 mg PO BID Garlic 1 each PO DAILY Aspirin/Calcium Carbonate/Mag [Buffered Aspirin 325 mg Tb] 325 mg PO DAILY PRN PRN Reason: migraines Discharge Medication List Aspirin [Adult Low Dose Aspirin EC] 81 mg PO DAILY 10/08/15 [History] Cholecalciferol [Vitamin D3 (25 Mcg = 1000 Iu)] 1,000 unit PO DAILY 10/08/15 [History] Multivit-Min/FA/Lycopen/Lutein [Centrum Silver Tablet] 1 tab PO DAILY 10/08/15 [History] [place]-3 Fatty Acids/Fish Oil [Fish Oil 1,000 mg Softgel] 1 cap PO DAILY 10/08/15 [History] Red Yeast Rice 1,200 mg PO DAILY 10/08/15 [History] Vit A/Vit C/Vit E/Zinc/Copper [ICAPS SOFTGEL] 2 cap PO DAILY 10/08/15 [History] Docusate [Colace] 200 mg PO HS 01/28/17 [History] Aspirin/Calcium Carbonate/Mag [Buffered Aspirin 325 mg Tb] 325 mg PO DAILY PRN 12/31/20 [History] Garlic 1 each PO DAILY 12/31/20 [History] atenoloL [Atenolol] 25 mg PO BID 12/31/20 [History] Aspirin [Adult Low Dose Aspirin EC] 81 mg PO BID #1 tablet. 01/05/21 [Rx] Sennosides-Docusate Sodium [Senokot-S] 1 tab PO BID #60 tablet 01/05/21 [Rx] Sulfamethox-Tmp 800-160Mg [Bactrim DS 800-160 mg] 1 tab PO Q12HR 01/05/21 [History] traMADol HCL [Ultram] 50 mg PO Q6HR PRN #28 tab 01/05/21 [Rx] Follow up Appointment(s)/Referral(s): Johanny Kohler, SANGEETHA [PHYSICIAN [facility]] - 2 Weeks Activity/Diet/Wound Care/Special Instructions: May bear wt as tolerated w walker. May shower 48h post op. Leave Optifoam dressing intact 7-10 days. Discharge Disposition: TRANSFER TO SNF/F
--- NOTE | 2021-01-06 09:25 | P.PN ---
Subjective Progress Note Date: 01/06/21 History of Presenting Illness: Patient is a very pleasant 80-year-old female with a past medical history of hypertension, chronic dry eyes status post bilateral cataract removal surgery, and advanced osteoarthritis. Patient is currently admitted under orthopedic surgery team where she underwent a right total hip arthroplasty with hybrid implantation with metal on polyethylene articulation secondary to severe right hip osteoarthritis. We have been consulted for continued medical management. Physical exam: Patient seen and fully evaluated at the bedside. Patient reports having multiple episodes of emesis and inability to tolerate food. Patient denies having any abdominal pain or distention. Denies any sore throat or dysphasia. Abdomen soft, nontender and nondistended. Postoperative nausea and vomiting likely secondary to use the cardiac/anesthesia, however we will rule out obstruction by obtaining an abdominal x-ray. Patient reports postoperative pain and right hip remains "sore" but denies excess pain. Patient denies having any headache, lightheadedness, dizziness, chest pain or palpitations, shortness of breath, or experiencing any numbness/tingling/weakness in her extremities. General: non toxic, no distress, appears at stated age Derm: warm, dry. Postsurgical dressing to right hip and place, currently clean dry and intact with no signs of postoperative bleeding. Head: atraumatic, normocephalic, symmetric Eyes: no lid lag, anicteric sclera. Mouth: no lip lesion, mucus membranes moist Cardiovascular: S1-S2 regular with bradycardic rate and regular rhythm. Murmur present. No gallops or rubs noted. Posterior tibial pulses palpated bila terally. Cap refill less than 2 seconds. Lungs: Respirations even, regular, and unlabored on room air. Lungs clear to auscultation bilaterally with no wheezes, rhonchi, or rales noted. No accessory muscle usage. Abdominal: soft, nontender to palpation, no guarding, no appreciable organomegaly Ext: No edema, RLE atrophy/ankle deformity Neuro: GCS 15. Speech clear. CN II-XI grossly intact, no focal neuro deficits Psych: Alert, oriented, appropriate affect Assessment and Plan of Care: Bradycardia, resolved -Patient bradycardic status post surgical procedure, possibly secondary to effect of anesthesia vs effect of daily beta kemi use. -Continuous telemetry monitoring -We will continue to monitor closely. -Parameters placed on atenolol to hold for heart rate less than 55 and notify provider for further orders. Postoperative nausea and vomiting -Patient having difficulty tolerating by mouth status post surgical procedure. Patient has had reported multiple episodes of emesis. -Postoperative nausea and vomiting likely secondary to narcotics/anesthesia, h owever we will rule out obstruction by obtaining an abdominal x-ray. -Continue antiemetics as needed. -Continue IV hydration until patient able to tolerate diet and advance as she tolerates. Hypertension -Monitor vital signs and continue daily medication management with atenolol 25 mg twice daily. -Heart healthy diet. Chronic dry eyes status post cataract removal surgery -Artificial tears 2 drops both eyes 4 times daily as needed for dry. Status post total right hip arthroplasty postop day 1 -Surgical procedure completed by Dr. Figueroa on 01/05/21. -Wound care, pain management, PT/OT, weightbearing, and DVT prophylaxis per primary admitting orthopedic surgery team. Thank you for allowing us to participate in the care of this pleasant patient. Do not hesitate to contact us with questions. Someone can be reached from the [facility] hospitalist group all hours of the day at [phone] or via [employer]. Objective - Vital Signs Vital signs: Vital Signs Temp 98.1 F 01/06/21 07:54 Pulse 63 01/06/21 07:54 Resp 16 01/06/21 07:54 BP 134/74 01/06/21 07:54 Pulse Ox 93 L 01/06/21 07:54 Intake & Output 01/05/21 01/06/21 01/06/21 18:59 06:59 18:59 Intake Total 1451 300 Output Total 75 Balance 1376 300 Weight 82.1 kg Intake: IV 1351 Oral 100 300 Output: Estimated Blood Loss 75 Other: Voiding Method Toilet Diaper # Voids 1 - Labs CBC & Chem 7: 01/06/21 07:42
[2021-01-06 11:02] LABS: Basophils # (A) 0.02 X 10*3/uL (0.00-0.10); Basophils % (A) 0.1 %; Eosinophils # (A) 0.03 X 10*3/uL (0.04-0.35); Eosinophils % (A) 0.2 %; HCT 37.2 % (37.2-46.3); HGB 12.3 g/dL (12.0-15.0); Lymphocytes # (A) 1.17 X 10*3/uL (0.90-5.00); Lymphocytes % (A) 8.5 %; MCH 29.4 pg (27.0-32.0); MCHC 33.1 g/dL (32.0-37.0); MCV 88.8 fL (80.0-97.0); Mean Platelet Volume 10.9 fL (9.5-12.2); Monocytes # (A) 1.11 X 10*3/uL (0.20-1.00); Monocytes % (A) 8.1 %; Neutrophils # (A) 11.33 X 10*3/uL (1.80-7.70); Neutrophils % (A) 82.5 %; Platelet Count 178 X 10*3/uL (140-440); RBC 4.19 X 10*6/uL (4.10-5.20); RDW 13.7 % (11.5-14.5); WBC 13.74 X 10*3/uL (4.50-10.00)
[2021-01-06 12:30] LABS: BUN/Creat Ratio 21.11 Ratio (12.00-20.00); Calcium 9.3 mg/dL (8.7-10.3); Non-African American GFR(CKD) 59.5 (60.0-200.0); Potassium 4.8 mmol/L (3.5-5.5)
[2021-01-06] MEDS: MULTIVITAMINS, THERA 1 EACH TAB PO SCH (13:05)
--- NOTE | 2021-01-06 13:13 | XR ---
EXAMINATION TYPE: XR KUB portable DATE OF EXAM: 01/06/2021 COMPARISON: NONE HISTORY: Abdominal distention TECHNIQUE: One view abdominal series FINDINGS: The osseous structures are intact. The bowel gas pattern is nonspecific. 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 Degenerative change of the spine. IMPRESSION: 1. Nonspecific abdomen with no diagnostic evidence of obstruction.
[2021-01-06] MEDS: SENNOSIDES-DOCUSATE SODIUM 1 EACH TAB PO SCH (20:56)
[2021-01-07] MEDS: LACTATED RINGERS 1,000 ML IV SCH (03:17)
--- NOTE | 2021-01-07 07:45 | P.PN ---
Progress Note - Text Progress Note Date: 01/07/21 This is an 80-year-old female who is status post total right hip arthroplasty on 01/05/2021. Her discharge was held yesterday. She is doing well today with no new complaints or concerns today. Vital signs are stable. Labs are stable. Exam of the right hip reveals that her dressing is clean, dry and intact. She has full foot and ankle motion without difficulty or pain. Neurovascular status to the right lower extremity is intact. Plan is for discharge to inpatient rehab today if cleared medically. She is to follow-up in 2 weeks for x-ray and evaluation. She is weightbearing as tolerated with walker. Please see previous discharge summary.
[2021-01-07 07:57] VITALS: RESP 16; TEMP 98
[2021-01-07] MEDS: MULTIVITAMINS, THERA 1 EACH TAB PO SCH (08:13)
[2021-01-07] MEDS: ASPIRIN 81 MG PO SCH (08:13)
[2021-01-07] MEDS: atenoloL 25 MG TAB PO SCH (08:13)
[2021-01-07] MEDS: CALCIUM CARBONATE 500 MG CHEWABLE PO PRN (08:13)
--- NOTE | 2021-01-07 13:09 | P.PN ---
Subjective Progress Note Date: 01/07/21 Feels okay, no chest pain no abdominal pain no nausea no vomiting no dizziness no shortness of breath. Remains afebrile. Objective - Vital Signs Vital signs: Vital Signs Temp 98.0 F 01/07/21 07:52 Pulse 60 01/07/21 08:00 Resp 16 01/07/21 08:00 BP 151/57 01/07/21 07:52 Pulse Ox 92 L 01/07/21 07:52 Intake & Output 01/06/21 01/07/21 01/07/21 18:59 06:59 18:59 Intake Total 840 Balance 840 Intake: Intake, IV Titration 240 Amount Lactated Ringers 1,000 ml 240 @ 20 mls/hr IV .Q24H [facility] Rx#:[id number] Oral 600 Other: Voiding Method Toilet Toilet Diaper Diaper # Voids 2 3 - Exam Constitutional: No acute distress, conversant, pleasant Eyes: Anicteric sclerae, moist conjunctiva, no lid-lag, PERRLA ENMT: NC/AT,Oropharynx clear Neck:Supple, FROM, no masses, or JVD, Lungs: Clear to auscultation, Clear to percussion, Normal respiratory effort, no accessory muscle use Cardiovascular: Heart regular in rate and rhythm, No murmurs, gallops, or rubs no peripheral edema Abdominal: Soft Nontender, non distended, no guarding, no rebound or rigidity, Normoactive bowel sounds No hepatomegaly, No splenomegaly, No palpable mass No abdominal wall hernia noted Skin: Normal temperature, tone, texture, turgor, No induration No subcutaneous nodules, No rash, lesions, No ulcers Extremities:No digital cyanosis No clubbing Psychiatric: Alert and oriented to person, place and time, Appropriate affect Intact judgement Neuro: Sensation to light touch grossly present throughout, Cranial nerves II- XII grossly intact. No focal sensory deficits - Labs CBC & Chem 7: 01/06/21 07:42 01/06/21 07:42 Assessment and Plan Plan: Bradycardia, resolved -Patient bradycardic status post surgical procedure, possibly secondary to effect of anesthesia vs effect of daily beta kemi use. Resolved, monitor as patient is on beta kemi. Postoperative nausea and vomiting Resolved Hypertension -Monitor vital signs and continue daily medication management with atenolol 25 mg twice daily. -Heart healthy diet. Chronic dry eyes status post cataract removal surgery -Artificial tears 2 drops both eyes 4 times daily as needed for dry. Status post total right hip arthroplasty postop day 1 -Surgical procedure completed by Dr. Figueroa on 01/05/21. -Wound care, pain management, PT/OT, weightbearing, and DVT prophylaxis per primary admitting orthopedic surgery team. Medically okay for discharge with outpatient follow-up with PCP.
[2021-01-07 13:49] VITALS: BP 174/57; PULSE 70
[2021-01-07 17:53] LABS: Appearance,Urine Clear (Clear); Bilirubin,Urine Negative (Negative); Blood,Urine Negative (Negative); Color,Urine Yellow; Glucose,Urine (UA) Negative (Negative); Ketones,Urine Negative (Negative); Leukocyte Esterase,Urine Negative (Negative); Nitrite,Urine Negative (Negative); PH, Urine 6.5 (5.0-8.0); Protein,Urine Negative (Negative); Specific Gravity,Urine 1.008 (1.001-1.035); Urobilinogen,Urine <2.0 mg/dL (<2.0)
== END 2021-01-07 16:55 | DRG 470 ==
LOC: OR 10:57 → 4SSUR 14:57 → OR 01-06 12:37 → 4SSUR 01-06 12:37 → OBSVTOIN 01-06 15:26
PROVIDERS: ADMIT Orthopaedic Surgery; ATTEND Orthopaedic Surgery
PROC: 0SR90J9 Replacement of Right Hip Joint with Synthetic Substitute, Cemented, Open Approach (ICD-10-PCS; principal; 2021-01-05 12:30)
DX: M16.11 Unilateral primary osteoarthritis, right hip (principal); M06.9 Rheumatoid arthritis, unspecified; I25.2 Old myocardial infarction; I10 Essential (primary) hypertension; E78.5 Hyperlipidemia, unspecified; E11.9 Type 2 diabetes mellitus without complications; Z20.822 Contact with and (suspected) exposure to COVID-19; R00.1 Bradycardia, unspecified; H04.123 Dry eye syndrome of bilateral lacrimal glands; Z98.42 Cataract extraction status, left eye; Z98.41 Cataract extraction status, right eye; Z79.82 Long term (current) use of aspirin; Z79.899 Other long term (current) drug therapy; Z85.3 Personal history of malignant neoplasm of breast; Z87.891 Personal history of nicotine dependence; Z90.710 Acquired absence of both cervix and uterus; Z96.642 Presence of left artificial hip joint
CPT/HCPCS: 36415; 73501; 74018; 80048; 81003; 85025; 86850; 86900; 86901; 87635; 88305; 88311

== ENCOUNTER 2021-08-05 11:14 | Inpatient (IN) | payer MEDICARE, BC ==
[2021-08-05] MEDS ORDERED: ONDANSETRON 4 MG/2 ML VIAL IVP STA (11:36)
[2021-08-05] MEDS ORDERED: SODIUM CHLORIDE 0.9% 1,000 ML IV STA (11:36)
[2021-08-05] MEDS ORDERED: PANTOPRAZOLE 40 MG/10 ML VIAL IVP STA (11:36)
--- NOTE | 2021-08-05 12:27 | ED ---
GI Bleed HPI - General Chief complaint: GI Bleed Stated complaint: GI Bleed Time Seen by Provider: 08/05/21 11:27 Source: patient, EMS Mode of arrival: EMS Limitations: no limitations - History of Present Illness Initial comments: is a pleasant 81-year-old female who presents to the emergency department today complaining of rectal bleeding. Patient says she woke about 3 AM and had a large bowel movement. Patient then went back to bed and woke up a few hours later with left-sided abdominal pain as well as epigastric pain. Patient states the pain does radiate to her back in between her shoulder blades. Patient states she had an urge to have a bowel movement. Patient had quite a bit of bright red blood per rectum. Patient had some nausea but no vomiting. Patient states she did vomit a bit into her throat. Had no overt vomiting. She denied any chest pain or shortness of breath. Patient has no history of gastrointestinal bleeding. She does have a history of a hiatal hernia. Not anticoagulated. Patient states she did wake up sweating but denies any known fever. No hematuria. No problems with urination. No headache. No vision or hearing changes. No neck pain. No skin rashes or lesions. No recent illness. No numbness or tingling. No lightheadedness. No symptoms of syncope. No heat or cold intolerance. - Related Data Home Medications Medication Instructions Recorded Confirmed Cholecalciferol [Vitamin D3 (25 1,000 unit PO DAILY 10/08/15 12/31/20 Mcg = 1000 Iu)] Multivit-Min/FA/Lycopen/Lutein 1 tab PO DAILY 10/08/15 12/31/20 [Centrum Silver Tablet] Sheffield-3 Fatty Acids/Fish Oil [Fish 1 cap PO DAILY 10/08/15 12/31/20 Oil 1,000 mg Softgel] Red Yeast Rice 1,200 mg PO DAILY 10/08/15 12/31/20 Vit A/Vit C/Vit E/Zinc/Copper 2 cap PO DAILY 10/08/15 12/31/20 [ICAPS SOFTGEL] Docusate [Colace] 200 mg PO HS 01/28/17 12/31/20 Aspirin/Calcium Carbonate/Mag 325 mg PO DAILY PRN 12/31/20 12/31/20 [Buffered Aspirin 325 mg Tb] Garlic 1 each PO DAILY 12/31/20 12/31/20 atenoloL 25 mg PO BID 12/31/20 12/31/20 Previous Rx's Medication Instructions Recorded Aspirin [Adult Low Dose Aspirin EC] 81 mg PO BID #1 tablet. 01/05/21 Sennosides-Docusate Sodium 1 tab PO BID #60 tablet 01/05/21 [Senokot-S] traMADol HCL [Ultram] 50 mg PO Q6HR PRN #28 tab 01/05/21 Allergies Allergy/AdvReac Type Severity Reaction Status Date / Time acetaminophen [From Tylenol] Allergy Unknown Verified 08/05/21 11:28 atorvastatin calcium Allergy muscle pain Verified 08/05/21 11:28 [From Lipitor] celecoxib [From Celebrex] Allergy Rash/Hives Verified 08/05/21 11:28 duloxetine Allergy Unknown Verified 08/05/21 11:28 escitalopram Allergy Unknown Verified 08/05/21 11:28 iodine Allergy Swelling Verified 08/05/21 11:28 latex Allergy throat Verified 08/05/21 11:28 swelling,rash naproxen sodium [From Aleve] Allergy migraines Verified 08/05/21 11:28 niacin Allergy Rash/Hives Verified 08/05/21 11:28 Penicillins Allergy Rash/Hives Verified 08/05/21 11:28 povidone-iodine Allergy Rash/Hives Verified 08/05/21 11:28 [From Betadine] simvastatin Allergy Unknown Verified 08/05/21 11:28 warfarin sodium AdvReac Vomiting Verified 08/05/21 11:28 [From Coumadin] ceptra Allergy Unknown Uncoded 08/05/21 11:28 excedrin Allergy Unknown Uncoded 08/05/21 11:28 ivory soap Allergy Unknown Uncoded 08/05/21 11:28 Review of Systems ROS Statement: Those systems with pertinent positive or pertinent negative responses have been documented in the HPI. ROS Other: All systems not noted in ROS Statement are negative. Constitutional: Reports: as per HPI Respiratory: Reports: as per HPI Cardiovascular: Reports: as per HPI Endocrine: Reports: as per HPI Gastrointestinal: Reports: nausea, diarrhea, hematochezia. Denies: vomiting, constipation, hematemesis Genitourinary: Reports: as per HPI Musculoskeletal: Reports: as per HPI Skin: Reports: as per HPI Neurological: Reports: as per HPI Psychiatric: Reports: as per HPI Hematological/Lymphatic: Reports: as per HPI Past Medical History Past Medical History: Cancer, Diabetes Mellitus, GERD/Reflux, Hyperlipidemia, Hy pertension, Myocardial Infarction (NM), Osteoarthritis (OA), Rheumatoid Arthritis (RA) Additional Past Medical History / Comment(s): migraines, left breast cancer 2009, DIABETIC -CONTROLLED WITH DIET "borderline" Last Myocardial Infarction Date:: unknown History of Any Multi-Drug Resistant Organisms: None Reported Past Surgical History: Breast Surgery, Hysterectomy, Orthopedic Surgery Additional Past Surgical History / Comment(s): left breast lumpectomy, left knee arthroscopy, chelsie cataracts, rt hand surgery-tumor removed from index finger, LEFT HIP REPLACEMENT Past Anesthesia/Blood Transfusion Reactions: Motion Sickness Additional Past Anesthesia/Blood Transfusion Reaction / Comment(s): "after EGD I had dislocated jaw, ear ache for 3 weeks and dislocated rt shoulder-not sure what happened", "I vomited for 2 days after hip surgery" Past Psychological History: Anxiety, Depression Smoking Status: Former smoker - Past Family History Father Family Medical History: Cancer Daughter(s) Family Medical History: Cancer Additional Family Medical History / Comment(s): skin General Exam Limitations: no limitations General appearance: alert, in no apparent distress Head exam: Present: atraumatic, normocephalic, normal inspection Eye exam: Present: normal appearance, PERRL, EOMI. Absent: scleral icterus, conjunctival injection, periorbital swelling ENT exam: Present: normal exam, mucous membranes moist. Absent: normal oropharynx, mucous membranes dry Neck exam: Present: normal inspection. Absent: tenderness, meningismus, lymphadenopathy Respiratory exam: Present: normal lung sounds bilaterally. Absent: respiratory distress, wheezes, rales, rhonchi, stridor Cardiovascular Exam: Present: regular rate, normal rhythm, normal heart sounds. Absent: systolic murmur, diastolic murmur, rubs, gallop, clicks GI/Abdominal exam: Present: soft, tenderness, guarding, normal bowel sounds, other (Patient tender in the area of the left abdomen as well as epigastrium. Abdomen is soft otherwise. No rebound or percussion tenderness. No discernible distention.). Absent: distended, rebound, rigid, organomegaly Rectal exam: Present: normal inspection, normal rectal tone, heme (+) stool, blo callie stool. Absent: decreased rectal tone (Chaperoned by female RN), heme (-) stool, black stool, fecal impaction, hemorrhoids, mass, tenderness Extremities exam: Present: normal inspection, full ROM, normal capillary refill. Absent: tenderness, pedal edema, joint swelling, calf tenderness Back exam: Present: normal inspection Neurological exam: Present: alert, oriented X3, CN II-XII intact Psychiatric exam: Present: normal affect, normal mood Skin exam: Present: warm, dry, intact, normal color. Absent: rash Course Vital Signs 08/05/21 11:25 Temperature 97.5 F L Pulse Rate 61 Respiratory 18 Rate Blood Pressure 170/79 O2 Sat by Pulse 97 Oximetry - Reevaluation(s) Reevaluation #1: 08/05/21 12:38 Patient reevaluated and is in no significant distress. He went after stable. CT shows no diagnostic evidence related to the patient's chief complaint of gastrointestinal bleeding. Awaiting laboratory work. Medical Decision Making - Medical Decision Making Patient presents with abdominal pain with bright red blood per rectum. Differential includes diverticulosis versus diverticulitis. She did have an e pisode of sweating but no fever. Large upper gastritis and bleeding is within the differential but less likely given the patient's vital signs. Patient has no rectal pain. This unlikely should be hemorrhoidal related but this is within the possibility as well. Intra-abdominal infection less likely but possible. Bowel perforation unlikely. Gen. Demerol exam ordered. EKG due to the patient's pain between her shoulder blades. We'll add on a troponin. Lactic acid. Type and screen. CT abdomen and pelvis as well as a chest x-ray. The case was discussed in detail with ED attending physician. Presentation, findings, treatment plan discussed in detail. Patient had some evidence of wall thickening on computed tomography scan. However no evidence of diverticulitis or any other intra-abdominal infectious versus inflammatory etiologies. Given the patient's lactic acid White blood cell count. I did cover her with metronidazole and ceftriaxone. Case was discussed in detail with the hospitalist physician from [facility]. Dr. Matias Discussed the case. Patient will be admitted for further investigation for gastrointestinal bleeding. Patient was given Protonix here in the ER. Patient remained hemodynamic stable. - Differential Diagnosis Gastrointestinal bleeding, diverticulitis, diverticulosis, - Lab Data Result diagrams: 08/05/21 11:53 08/05/21 11:53 Lab Results 08/05/21 08/05/21 08/05/21 Range/Units 11:53 11:53 11:53 WBC 21.0 H (3.8-10.6) k/uL RBC 4.70 (3.80-5.40) m/uL Hgb 13.9 (11.4-16.0) gm/dL Hct 42.2 (34.0-46.0) % MCV 89.9 (80.0-100.0) fL MCH 29.6 (25.0-35.0) pg MCHC 32.9 (31.0-37.0) g/dL RDW 14.4 (11.5-15.5) % Plt Count 179 (150-450) k/uL MPV 9.1 Neutrophils % 90 % Lymphocytes % 4 % Monocytes % 5 % Eosinophils % 0 % Basophils % 0 % Neutrophils # 18.8 H (1.3-7.7) k/uL Lymphocytes # 0.9 L (1.0-4.8) k/uL Monocytes # 1.1 H (0-1.0) k/uL Eosinophils # 0.0 (0-0.7) k/uL Basophils # 0.0 (0-0.2) k/uL PT 10.7 (9.0-12.0) sec INR 1.0 (<1.2) APTT 19.4 L (22.0-30.0) sec Sodium 134 L (137-145) mmol/L Potassium 4.4 (3.5-5.1) mmol/L Chloride 99 (98-107) mmol/L Carbon Dioxide 22 (22-30) mmol/L Anion Gap 13 mmol/L BUN 21 H (7-17) mg/dL Creatinine 0.65 (0.52-1.04) mg/dL Est GFR (CKD-EPI)AfAm >90 (>60 ml/min/1.73 sqM) Est GFR (CKD-EPI)NonAf 83 (>60 ml/min/1.73 sqM) Glucose 194 H (74-99) mg/dL Plasma Lactic Acid Olivier (0.7-2.0) mmol/L Calcium 9.5 (8.4-10.2) mg/dL Total Bilirubin 0.5 (0.2-1.3) mg/dL AST 28 (14-36) U/L ALT 25 (4-34) U/L Alkaline Phosphatase 100 (38-126) U/L Troponin I (0.000-0.034) ng/mL Total Protein 7.0 (6.3-8.2) g/dL Albumin 4.0 (3.5-5.0) g/dL Lipase 133 (23-300) U/L Stool Occult Blood (Negative) Coronavirus (PCR) (Not Detectd) Blood Type Blood Type Recheck Bld Type Recheck Status Antibody Screen Spec Expiration Date 08/05/21 08/05/21 08/05/21 Range/Units 11:53 11:53 11:54 WBC (3.8-10.6) k/uL RBC (3.80-5.40) m/uL Hgb (11.4-16.0) gm/dL Hct (34.0-46.0) % MCV (80.0-100.0) fL MCH (25.0-35.0) pg MCHC (31.0-37.0) g/dL RDW (11.5-15.5) % Plt Count (150-450) k/uL MPV Neutrophils % % Lymphocytes % % Monocytes % % Eosinophils % % Basophils % % Neutrophils # (1.3-7.7) k/uL Lymphocytes # (1.0-4.8) k/uL Monocytes # (0-1.0) k/uL Eosinophils # (0-0.7) k/uL Basophils # (0-0.2) k/uL PT (9.0-12.0) sec INR (<1.2) APTT (22.0-30.0) sec Sodium (137-145) mmol/L Potassium (3.5-5.1) mmol/L Chloride (98-107) mmol/L Carbon Dioxide (22-30) mmol/L Anion Gap mmol/L BUN (7-17) mg/dL Creatinine (0.52-1.04) mg/dL Est GFR (CKD-EPI)AfAm (>60 ml/min/1.73 sqM) Est GFR (CKD-EPI)NonAf (>60 ml/min/1.73 sqM) Glucose (74-99) mg/dL Plasma Lactic Acid Olivier 3.2 H* (0.7-2.0) mmol/L Calcium (8.4-10.2) mg/dL Total Bilirubin (0.2-1.3) mg/dL AST (14-36) U/L ALT (4-34) U/L Alkaline Phosphatase (38-126) U/L Troponin I <0.012 (0.000-0.034) ng/mL Total Protein (6.3-8.2) g/dL Albumin (3.5-5.0) g/dL Lipase (23-300) U/L Stool Occult Blood (Negative) Coronavirus (PCR) (Not Detectd) Blood Type AB Positive Blood Type Recheck AB Pos Bld Type Recheck Status No Antibody Screen NEGATIVE Spec Expiration Date 08/08/2021235308/05/21 08/05/21 Range/Units 11:54 12:04 WBC (3.8-10.6) k/uL RBC (3.80-5.40) m/uL Hgb (11.4-16.0) gm/dL Hct (34.0-46.0) % MCV (80.0-100.0) fL MCH (25.0-35.0) pg MCHC (31.0-37.0) g/dL RDW (11.5-15.5) % Plt Count (150-450) k/uL MPV Neutrophils % % Lymphocytes % % Monocytes % % Eosinophils % % Basophils % % Neutrophils # (1.3-7.7) k/uL Lymphocytes # (1.0-4.8) k/uL Monocytes # (0-1.0) k/uL Eosinophils # (0-0.7) k/uL Basophils # (0-0.2) k/uL PT (9.0-12.0) sec INR (<1.2) APTT (22.0-30.0) sec Sodium (137-145) mmol/L Potassium (3.5-5.1) mmol/L Chloride (98-107) mmol/L Carbon Dioxide (22-30) mmol/L Anion Gap mmol/L BUN (7-17) mg/dL Creatinine (0.52-1.04) mg/dL Est GFR (CKD-EPI)AfAm (>60 ml/min/1.73 sqM) Est GFR (CKD-EPI)NonAf (>60 ml/min/1.73 sqM) Glucose (74-99) mg/dL Plasma Lactic Acid Olivier (0.7-2.0) mmol/L Calcium (8.4-10.2) mg/dL Total Bilirubin (0.2-1.3) mg/dL AST (14-36) U/L ALT (4-34) U/L Alkaline Phosphatase (38-126) U/L Troponin I (0.000-0.034) ng/mL Total Protein (6.3-8.2) g/dL Albumin (3.5-5.0) g/dL Lipase (23-300) U/L Stool Occult Blood Positive H (Negative) Coronavirus (PCR) Not Detected (Not Detectd) Blood Type Blood Type Recheck Bld Type Recheck Status Antibody Screen Spec Expiration Date - EKG Data -: EKG Interpreted by Me Interpretation: no acute changes 08/05/21 13:40 EKG done at 12:41 PM reveals sinus rhythm with sinus arrhythmia and occasional PVC. First-degree AV block with [place] interval of 206 ms. Normal intervals otherwise. Left axis deviation. No acute ST or T-wave changes. Sed review by the ED attending physician. - Radiology Data Radiology results: report reviewed, image reviewed See radiology interpretation Disposition Clinical Impression: Gastrointestinal hemorrhage, Hypertension, Gastrointestinal hemorrhage due to nonsteroidal antiinflammatory drug Disposition: ADMITTED IP TO THIS [facility] Condition: Stable Referrals: Evon Card MD [Primary Care Provider] - 1-2 days Decision to Admit Reason: Admit from EC Decision Time: 13:30
--- NOTE | 2021-08-05 12:31 | CT ---
EXAMINATION TYPE: CT abdomen pelvis wo con DATE OF EXAM: 08/05/2021 COMPARISON: None INDICATION: Left sided abdominal pain with bright red rectal bleeding. DLP: 916.8 mGycm, Automated exposure control for dose reduction was used. CONTRAST: 0 mL of Isovue 300. Study performed without Oral Contrast TECHNIQUE: Axial images were obtained from above the diaphragm to the pubic rami in the axial plane a t 5 mm thick sections. Reconstructed images are reviewed on the computer in the coronal plane. FINDINGS: Limited CT sections are obtained the lung bases. There is a punctate density at the edge of the fiel d of view within the posterior lateral right lung measuring 0.[address] chest for additional evaluation. There is a spiculated pleural-based de nsity in the posterior lateral left lung measuring 2.4 x 5.6 cm. Atelectasis pneumonia and neoplasm s hould be considered. Follow-up to clearing is recommended. Small amount of coronary artery calcificat ion is present. CT ABDOMEN: Liver: Normal Spleen: Normal Pancreas: Normal Adrenal glands: The adrenal glands are normal. Gallbladder: Normal Kidneys: No masses are evident. No hydronephrosis is present. No cysts are present. There is a pun ctate density within the inferior pole right kidney may be a tiny renal stone. Aorta: Vascular calcification is within the aorta. Inferior vena cava: Normal. CT PELVIS: Bilateral hip prostheses are present causing beam hardening artifact limiting the lower pe lvis. There is incomplete distention of the sigmoid colon. Subtle underlying colitis may be present. Multip le diverticuli are present without inflammatory changes to suggest acute diverticulitis. This study i s without oral contrast limiting bowel evaluation. Appendix: Not identified. No suspicious inflammatory changes or dilated tubular structures are eviden t. Urinary bladder: Normal. Genitourinary structures: Nondiagnostic, not identified Osseous structures: No suspicious lytic or sclerotic lesions are evident. Bilateral hip prostheses ar e present. Degenerative changes are within the sacroiliac joints and the lumbar facets. IMPRESSIONS: 1. Left posterior lateral lung mass or consolidation. Differential could include neoplasm, pneumonia , atelectasis. Follow-up to clearing is recommended. 2. Possible small nodule posterior lateral right lung. Follow-up chest CT is recommended. 3. Tiny punctate nonobstructing inferior pole right renal stone. 4. Diverticulosis without acute diverticulitis sigmoid colon. Mild wall thickening is not excluded. C orrelate for mild underlying colitis.
[2021-08-05 12:32] LABS: ALT 25 U/L (4-34); AST 28 U/L (14-36); African American GFR (CKD) >90 (>60 ml/min/1.73 sqM); Alkaline Phosphatase 100 U/L (38-126); Anion Gap 13 mmol/L; Blood Urea Nitrogen 21 mg/dL (7-17); Calcium 9.5 mg/dL (8.4-10.2); Carbon Dioxide 22 mmol/L (22-30); Chloride 99 mmol/L (98-107); Glucose 194 mg/dL (74-99); Lipase 133 U/L (23-300); Non-African American GFR(CKD) 83 (>60 ml/min/1.73 sqM); Potassium 4.4 mmol/L (3.5-5.1); Sodium 134 mmol/L (137-145); Total Bilirubin 0.5 mg/dL (0.2-1.3)
--- NOTE | 2021-08-05 12:33 | XR ---
EXAMINATION TYPE: XR chest 1V DATE OF EXAM: 08/05/2021 COMPARISON: 11/10/2015 INDICATION: Abdomen pain TECHNIQUE: Single frontal view of the chest is obtained. FINDINGS: The heart size is borderline prominent. The pulmonary vasculature is normal. The lungs are clear. Surgical clips are overlying the left chest. IMPRESSION: 1. No acute pulmonary process.
[2021-08-05 12:46] LABS: Basophils % (A) 0 %; Eosinophils % (A) 0 %; HCT 42.2 % (34.0-46.0); HGB 13.9 gm/dL (11.4-16.0); Lymphocytes # (A) 0.9 k/uL (1.0-4.8); Lymphocytes % (A) 4 %; MCH 29.6 pg (25.0-35.0); MCHC 32.9 g/dL (31.0-37.0); MCV 89.9 fL (80.0-100.0); Mean Platelet Volume 9.1; Monocytes # (A) 1.1 k/uL (0-1.0); Monocytes % (A) 5 %; Neutrophils # (A) 18.8 k/uL (1.3-7.7); Neutrophils % (A) 90 %; Platelet Count 179 k/uL (150-450); RDW 14.4 % (11.5-15.5)
[2021-08-05 12:55] LABS: Prothrombin Time 10.7 sec (9.0-12.0)
[2021-08-05 13:19] LABS: Partial Thromboplastin Time 19.4 sec (22.0-30.0)
[2021-08-05] MEDS ORDERED: metroNIDAZOLE-NS PMX 500 MG in SALINE 1 100ML.BAG IVPB STA (13:25)
[2021-08-05] MEDS ORDERED: NALOXONE 0.4 MG/ML 1 ML VIAL IV PRN ×2 (13:47→14:14)
[2021-08-05] MEDS ORDERED: ACETAMINOPHEN TAB 325 MG TAB PO PRN (13:47)
[2021-08-05] MEDS ORDERED: ONDANSETRON 4 MG/2 ML VIAL IVP PRN (14:14)
[2021-08-05] MEDS ORDERED: MORPHINE SULFATE 2 MG/ML SYRINGE IVP PRN (14:28)
--- NOTE | 2021-08-05 14:29 | P.HPIM ---
History of Present Illness H&P Date: 08/05/21 Chief Complaint: Gi bleeding 81-year-old female who presents to the emergency department today complaining of rectal bleeding. Patient says she woke about 3 AM and had a large bowel movement. Patient then went back to bed and woke up a few hours later with left-sided abdominal pain as well as epigastric pain. Patient states the pain does radiate to her back in between her shoulder blades. Then she had bright red blood per rectum. Patient had some nausea but no vomiting. No chest pain or shortness of breath. Patient has no history of gastrointestinal bleeding. She does have a history of a hiatal hernia. Not anticoagulated. Last colonoscopy was 8 years ago and was ok. No fevers but had sweats. No hematuria. No urinary symptoms. In the ER all labs were ok. Vitals ok. CT abdomen and pelvis showed diverticulosis without diverticulitis, mild wall thickening not excluded, nonobstructing right renal stone, also showed possible small nodule in the posterior right lateral wall as well as left posterior lateral lung mass or consolidation. Differential diagnosis includes pneumonia, neoplasm or atelectasis. Review of Systems Complete review of system performed, pertinent positives per HPI, otherwise negative Past Medical History Past Medical History: Cancer, Diabetes Mellitus, GERD/Reflux, Hyperlipidemia, Hypertension, Myocardial Infarction (SD), Osteoarthritis (OA), Rheumatoid Arthritis (RA) Additional Past Medical History / Comment(s): migraines, left breast cancer 2009, DIABETIC -CONTROLLED WITH DIET "borderline" Last Myocardial Infarction Date:: unknown History of Any Multi-Drug Resistant Organisms: None Reported Past Surgical History: Breast Surgery, Hysterectomy, Orthopedic Surgery Additional Past Surgical History / Comment(s): left breast lumpectomy, left knee arthroscopy, chelsie cataracts, rt hand surgery-tumor removed from index finger, LEFT HIP REPLACEMENT Past Anesthesia/Blood Transfusion Reactions: Motion Sickness Additional Past Anesthesia/Blood Transfusion Reaction / Comment(s): "after EGD I had dislocated jaw, ear ache for 3 weeks and dislocated rt shoulder-not sure what happened", "I vomited for 2 days after hip surgery" Past Psychological History: Anxiety, Depression Smoking Status: Former smoker - Past Family History Father Family Medical History: Cancer Daughter(s) Family Medical History: Cancer Additional Family Medical History / Comment(s): skin Medications and Allergies Home Medications Medication Instructions Recorded Confirmed Type Cholecalciferol [Vitamin D3 (25 25 mcg PO DAILY 10/08/15 08/05/21 History Mcg = 1000 Iu)] Huntington-3 Fatty Acids/Fish Oil [Fish 1 cap PO DAILY 10/08/15 08/05/21 History Oil 1,000 mg Softgel] Docusate [Colace] 100 mg PO BID 01/28/17 08/05/21 History Aspirin/Calcium Carbonate/Mag 650 mg PO DAILY PRN 12/31/20 08/05/21 History [Buffered Aspirin 325 mg Tb] atenoloL 25 mg PO BID 12/31/20 08/05/21 History Aspirin [Adult Low Dose Aspirin EC] 81 mg PO DAILY 08/05/21 08/05/21 History Garlique 1 cap PO DAILY 08/05/21 08/05/21 History Red Yeast Rice 600 mg PO DAILY 08/05/21 08/05/21 History Vit C/Ascorb Sod/Multivit-Min 1,000 mg PO DAILY 08/05/21 08/05/21 History [Emergen-C 500 mg Chewable Tab] Vit C/E/Zn/Coppr/Lutein/Zeaxan 1 cap PO BID 08/05/21 08/05/21 History [Preservision Areds 2 Softgel] Vitamin B Complex 1 cap PO DAILY 08/05/21 08/05/21 History Allergies Allergy/AdvReac Type Severity Reaction Status Date / Time acetaminophen [From Tylenol] Allergy Unknown Verified 08/05/21 14:09 aspirin Allergy Unknown Verified 08/05/21 14:09 [From Excedrin Extra Strength] caffeine Allergy Unknown Verified 08/05/21 14:09 [From Excedrin Extra Strength] celecoxib [From Celebrex] Allergy Rash/Hives Verified 08/05/21 14:09 duloxetine Allergy Unknown Verified 08/05/21 14:09 escitalopram Allergy Unknown Verified 08/05/21 14:09 iodine Allergy Swelling Verified 08/05/21 14:09 latex Allergy Anaphylaxis Verified 08/05/21 14:09 niacin Allergy Rash/Hives Verified 08/05/21 14:09 Penicillins Allergy Rash/Hives Verified 08/05/21 14:09 povidone-iodine Allergy Rash/Hives Verified 08/05/21 14:09 [From Betadine] simvastatin Allergy Unknown Verified 08/05/21 14:09 sulfamethoxazole Allergy Unknown Verified 08/05/21 14:09 [From Septra] trimethoprim [From Septra] Allergy Unknown Verified 08/05/21 14:09 atorvastatin calcium AdvReac muscle pain Verified 08/05/21 14:09 [From Lipitor] naproxen sodium [From Aleve] AdvReac migraines Verified 08/05/21 14:09 warfarin sodium AdvReac Vomiting Verified 08/05/21 14:09 [From Coumadin] ivory soap Allergy Unknown Uncoded 08/05/21 14:09 Physical Exam Vitals: Vital Signs Temp Pulse Resp BP Pulse Ox 08/05/21 11:25 97.5 F L 61 18 170/79 97 Intake and Output 08/04/21 08/05/21 08/05/21 22:59 06:59 14:59 Other: Weight 90.718 kg Constitutional: No acute distress, conversant, pleasant Eyes:Anicteric sclerae, moist conjunctiva, no lid-lag, PERRLA, ENMT: Oropharynx clear, no erythema, exudates Neck: Supple, FROM, no masses, or JVD, No carotid bruits, No thyromegaly Lungs: Clear to auscultation, Clear to percussion, Normal respiratory effort, no accessory muscle use Cardiovascular: Heart regular in rate and rhythm, No murmurs, gallops, or rubs, No peripheral edema Abdominal: Left-sided tenderness. No guarding, rebound or rigidity, Normoactive bowel sounds, No hepatomegaly, No splenomegaly, No palpable mass Skin: Normal temperature, tone, texture, turgor, no induration, No subcutaneous nodules, No rash, lesions, No ulcers Extremities: No digital cyanosis, No clubbing, Pedal pulses intact and symmetrical, Radial pulses intact and symmetrical, No calf tenderness Psychiatric: Alert and oriented to person, place and time, appropriate affect, intact judgement Neuro: Muscles Strength 5/5 in all 4 extremities, Sensation to light touch grossly present throughout, Cranial nerves II-XII grossly intact, no focal sensory deficits Results CBC & Chem 7: 08/05/21 11:53 08/05/21 11:53 Labs: Abnormal Lab Results - Last 24 Hours (Table) 08/05/21 08/05/21 08/05/21 Range/Units 11:53 11:53 11:53 WBC 21.0 H (3.8-10.6) k/uL Neutrophils # 18.8 H (1.3-7.7) k/uL Lymphocytes # 0.9 L (1.0-4.8) k/uL Monocytes # 1.1 H (0-1.0) k/uL APTT 19.4 L (22.0-30.0) sec Sodium 134 L (137-145) mmol/L BUN 21 H (7-17) mg/dL Glucose 194 H (74-99) mg/dL Plasma Lactic Acid Olivier (0.7-2.0) mmol/L Stool Occult Blood (Negative) 08/05/21 08/05/21 Range/Units 11:53 12:04 WBC (3.8-10.6) k/uL Neutrophils # (1.3-7.7) k/uL Lymphocytes # (1.0-4.8) k/uL Monocytes # (0-1.0) k/uL APTT (22.0-30.0) sec Sodium (137-145) mmol/L BUN (7-17) mg/dL Glucose (74-99) mg/dL Plasma Lactic Acid Olivier 3.2 H* (0.7-2.0) mmol/L Stool Occult Blood Positive H (Negative) Assessment and Plan Plan: Acute diverticulitis with diverticular bleed Clinically patient has diverticulitis, has left-sided abdominal pain, leukocytosis at 20,000. She will be treated with antibiotics including ceftriaxone and Flagyl Morphine as needed for pain NPO IV fluids GI will be consulted for colonoscopy. Follow-up CBC Lung mass Order chest CT Hypertension Resume atenolol Diabetes type 2, diet-controlled Check A1c Sliding scale insulin Admit to inpatient, expected length of stay more than 2 midnights
--- NOTE | 2021-08-05 15:04 | CT ---
EXAMINATION TYPE: CT chest wo con DATE OF EXAM: 08/05/2021 COMPARISON: CT abdomen and pelvis same date HISTORY: abnormal lung findings on prior scan CT DLP: 474.5 mGycm, Automated exposure control for dose reduction was used. CONTRAST: Performed injected with 0 mL of Isovue 300. TECHNIQUE: Axial images were obtained at 5 mm thick sections. Reconstructed images are reviewed on [employer] computer in the coronal plane. FINDINGS: Portion of the thyroid visualized is normal. There is a groundglass opacity within the right middle lobe measuring 1.7 cm. Series 204 image 26. Th e nodule within the posterior lateral right lung on this exam measures 0.7 x 0.4 cm corresponding to the previous finding. Series 204 image 33. Punctate density may be in the periphery of the right lung , series 204 image 38. The consolidation or mass at the posterior lateral left lung base is again herbert dent and remains suspicious. No enlarged mediastinal or hilar adenopathy is evident. The ascending aorta diameter at the level o f the main pulmonary artery is 3.4 cm. The main pulmonary artery diameter at the bifurcation is 2.4 cm. Intimal coronary artery calcifications present. Multiple surgical clips are present suggesting lumpectomy. There is a left breast biopsy with the ova l density with central hypodensity is suggesting a seroma at the lumpectomy site. This measures 1.9 x [address] sections are obtained through the upper abdomen. Abdomen is essentially unremarkable. IMPRESSIONS: 1. Left posterior lateral lung mass or consolidation. Metastasis should be considered. Additional wor kup is recommended. 2. Additional lung densities discussed above. 3. Prior left breast lumpectomy changes.
[2021-08-05 17:18] LABS: Glucose,Whole Blood 205 mg/dL (75-99)
[2021-08-05] MEDS: INSULIN ASPART (NovoLOG) 100 UNIT/ML VIAL SQ SCH ×2 (18:25→22:08)
[2021-08-05 20:38] LABS: Glucose,Whole Blood 186 mg/dL (75-99)
[2021-08-05] MEDS ORDERED: SODIUM CHLORIDE 0.9% 1,000 ML IV ONE ×2 (21:55→22:00)
[2021-08-05] MEDS: atenoloL 25 MG TAB PO SCH (22:08)
[2021-08-05] MEDS: PANTOPRAZOLE 40 MG/10 ML VIAL IV SCH (22:08)
[2021-08-05] MEDS: SODIUM CHLORIDE 0.9% 1,000 ML IV SCH (22:38)
[2021-08-05 23:02] LABS: HCT 43.5 % (34.0-46.0); HGB 14.1 gm/dL (11.4-16.0); MCH 29.8 pg (25.0-35.0); MCHC 32.5 g/dL (31.0-37.0); MCV 91.6 fL (80.0-100.0); Mean Platelet Volume 8.6; Platelet Count 156 k/uL (150-450); RBC 4.75 m/uL (3.80-5.40); WBC 24.8 k/uL (3.8-10.6)
[2021-08-06] MEDS: metroNIDAZOLE-NS PMX 500 MG in SALINE 1 100ML.BAG IVPB SCH ×4 (00:16→17:02)
[2021-08-06] MEDS: SODIUM CHLORIDE 0.9% 1,000 ML IV SCH ×3 (02:38→20:40)
[2021-08-06 07:14] LABS: Glucose,Whole Blood 149 mg/dL (75-99)
[2021-08-06 07:57] LABS: Basophils # (A) 0.1 k/uL (0-0.2); Basophils % (A) 0 %; Eosinophils # (A) 0.1 k/uL (0-0.7); Eosinophils % (A) 1 %; HCT 42.3 % (34.0-46.0); HGB 13.9 gm/dL (11.4-16.0); Lymphocytes # (A) 1.4 k/uL (1.0-4.8); Lymphocytes % (A) 5 %; MCH 30.6 pg (25.0-35.0); MCV 92.8 fL (80.0-100.0); Mean Platelet Volume 9.5; Monocytes # (A) 1.6 k/uL (0-1.0); Monocytes % (A) 6 %; Neutrophils # (A) 22.8 k/uL (1.3-7.7); Neutrophils % (A) 86 %; Platelet Count 163 k/uL (150-450); RBC 4.55 m/uL (3.80-5.40); RDW 14.7 % (11.5-15.5); WBC 26.4 k/uL (3.8-10.6)
[2021-08-06] MEDS: INSULIN ASPART (NovoLOG) 100 UNIT/ML VIAL SQ SCH ×3 (08:08→17:00)
[2021-08-06] MEDS: PANTOPRAZOLE 40 MG/10 ML VIAL IV SCH ×2 (08:16→20:39)
[2021-08-06] MEDS: atenoloL 25 MG TAB PO SCH ×2 (08:16→20:40)
[2021-08-06] MEDS ORDERED: PANTOPRAZOLE 40 MG/10 ML VIAL IV SCH (09:00)
[2021-08-06 10:04] LABS: African American GFR (CKD) 97.7 (60.0-200.0); Albumin 3.8 g/dL (3.8-4.9); Albumin/Globulin Ratio 1.73 (1.60-3.17); Anion Gap 13.2 mmol/L (10.00-18.00); BUN/Creat Ratio 25.67 Ratio (12.00-20.00); Blood Urea Nitrogen 15.4 mg/dL (9.0-27.0); Calcium 8.5 mg/dL (8.7-10.3); Carbon Dioxide 18.8 mmol/L (20.0-27.5); Globulin 2.2 g/dL (1.6-3.3); Magnesium 1.8 mg/dL (1.5-2.4); Non-African American GFR(CKD) 84.3 (60.0-200.0); Phosphorus 2.4 mg/dL (2.4-5.1); Potassium 4.1 mmol/L (3.5-5.5); Total Bilirubin 0.5 mg/dL (0.30-1.20)
--- NOTE | 2021-08-06 10:57 | P.PN ---
Subjective Progress Note Date: 08/06/21 Principal diagnosis: rectal bleeding According to the nursing staff patient had 4 episodes of black stools since last night. She is passing clots in her stools as well. She states that her left- sided abdominal pain is improved. No nausea or vomiting. She does not have an appetite. She has been nothing by mouth since admission. Objective - Vital Signs Vital signs: Vital Signs Temp 97.9 F 08/06/21 08:00 Pulse 68 08/06/21 08:00 Resp 16 08/06/21 08:00 BP 162/66 08/06/21 08:00 Pulse Ox 95 08/06/21 08:00 Intake & Output 08/05/21 08/06/21 08/06/21 18:59 06:59 18:59 Intake Total 2500 Output Total 1 Balance 2499 Weight 90.718 kg 90.718 kg Intake: Intake, IV Titration 2500 Amount Sodium Chloride 0.9% 1, 1300 000 ml @ 130 mls/hr IV . Q7H42M [facility] Rx#:[id number] Sodium Chloride 0.9% 1, 1000 000 ml @ 999 mls/hr IV . Q1H1M [facility] Rx#:[id number] metroNIDAZOLE-NS PMX 500 200 mg In Saline 1 100ml.bag @ 100 mls/hr IVPB Q6H [facility] Rx#:[id number] Output: Urine 1 Other: # Bowel Movements 3 - Exam Constitutional: No acute distress, conversant, pleasant Eyes:Anicteric sclerae, moist conjunctiva, no lid-lag, PERRLA, ENMT: Oropharynx clear, no erythema, exudates Neck: Supple, FROM, no masses, or JVD, No carotid bruits, No thyromegaly Lungs: Clear to auscultation, Clear to percussion, Normal respiratory effort, no accessory muscle use Cardiovascular: Heart regular in rate and rhythm, No murmurs, gallops, or rubs, No peripheral edema Abdominal: Left-sided tenderness. No guarding, rebound or rigidity, Normoactive bowel sounds, No hepatomegaly, No splenomegaly, No palpable mass Skin: Normal temperature, tone, texture, turgor, no induration, No subcutaneous nodules, No rash, lesions, No ulcers Extremities: No digital cyanosis, No clubbing, Pedal pulses intact and symmetrical, Radial pulses intact and symmetrical, No calf tenderness Psychiatric: Alert and oriented to person, place and time, appropriate affect, i ntact judgement Neuro: Muscles Strength 5/5 in all 4 extremities, Sensation to light touch grossly present throughout, Cranial nerves II-XII grossly intact, no focal sensory deficits - Labs CBC & Chem 7: 08/06/21 05:00 08/06/21 05:00 Labs: Abnormal Lab Results - Last 24 Hours (Table) 08/05/21 08/05/21 08/05/21 Range/Units 11:53 11:53 11:53 WBC 21.0 H (3.8-10.6) k/uL Neutrophils # 18.8 H (1.3-7.7) k/uL Lymphocytes # 0.9 L (1.0-4.8) k/uL Monocytes # 1.1 H (0-1.0) k/uL APTT 19.4 L (22.0-30.0) sec Sodium 134 L (137-145) mmol/L Carbon Dioxide (20.0-27.5) mmol/L BUN 21 H (7-17) mg/dL BUN/Creatinine Ratio (12.00-20.00) Ratio Glucose 194 H (74-99) mg/dL POC Glucose (mg/dL) (75-99) mg/dL Hemoglobin A1c (4.0-6.0) % Plasma Lactic Acid Olivier (0.7-2.0) mmol/L Calcium (8.7-10.3) mg/dL Total Protein (6.2-8.2) g/dL Stool Occult Blood (Negative) 08/05/21 08/05/21 08/05/21 Range/Units 11:53 12:04 14:59 WBC (3.8-10.6) k/uL Neutrophils # (1.3-7.7) k/uL Lymphocytes # (1.0-4.8) k/uL Monocytes # (0-1.0) k/uL APTT (22.0-30.0) sec Sodium (137-145) mmol/L Carbon Dioxide (20.0-27.5) mmol/L BUN (7-17) mg/dL BUN/Creatinine Ratio (12.00-20.00) Ratio Glucose (74-99) mg/dL POC Glucose (mg/dL) (75-99) mg/dL Hemoglobin A1c 6.3 H (4.0-6.0) % Plasma Lactic Acid Olivier 3.2 H* (0.7-2.0) mmol/L Calcium (8.7-10.3) mg/dL Total Protein (6.2-8.2) g/dL Stool Occult Blood Positive H (Negative) 08/05/21 08/05/21 08/05/21 Range/Units 15:45 17:17 18:38 WBC (3.8-10.6) k/uL Neutrophils # (1.3-7.7) k/uL Lymphocytes # (1.0-4.8) k/uL Monocytes # (0-1.0) k/uL APTT (22.0-30.0) sec Sodium (137-145) mmol/L Carbon Dioxide (20.0-27.5) mmol/L BUN (7-17) mg/dL BUN/Creatinine Ratio (12.00-20.00) Ratio Glucose (74-99) mg/dL POC Glucose (mg/dL) 205 H (75-99) mg/dL Hemoglobin A1c (4.0-6.0) % Plasma Lactic Acid Olivier 3.5 H* 4.6 H* (0.7-2.0) mmol/L Calcium (8.7-10.3) mg/dL Total Protein (6.2-8.2) g/dL Stool Occult Blood (Negative) 08/05/21 08/05/21 08/05/21 Range/Units 20:37 22:32 22:32 WBC 24.8 H (3.8-10.6) k/uL Neutrophils # (1.3-7.7) k/uL Lymphocytes # (1.0-4.8) k/uL Monocytes # (0-1.0) k/uL APTT (22.0-30.0) sec Sodium (137-145) mmol/L Carbon Dioxide (20.0-27.5) mmol/L BUN (7-17) mg/dL BUN/Creatinine Ratio (12.00-20.00) Ratio Glucose (74-99) mg/dL POC Glucose (mg/dL) 186 H (75-99) mg/dL Hemoglobin A1c (4.0-6.0) % Plasma Lactic Acid Olivier 4.0 H* (0.7-2.0) mmol/L Calcium (8.7-10.3) mg/dL Total Protein (6.2-8.2) g/dL Stool Occult Blood (Negative) 08/06/21 08/06/21 08/06/21 Range/Units 01:55 05:00 05:00 WBC 26.4 H (3.8-10.6) k/uL Neutrophils # 22.8 H (1.3-7.7) k/uL Lymphocytes # (1.0-4.8) k/uL Monocytes # 1.6 H (0-1.0) k/uL APTT (22.0-30.0) sec Sodium 134 L (137-145) mmol/L Carbon Dioxide 18.8 L (20.0-27.5) mmol/L BUN (7-17) mg/dL BUN/Creatinine Ratio 25.67 H (12.00-20.00) Ratio Glucose 168 H (74-99) mg/dL POC Glucose (mg/dL) (75-99) mg/dL Hemoglobin A1c (4.0-6.0) % Plasma Lactic Acid Olivier 2.3 H* (0.7-2.0) mmol/L Calcium 8.5 L (8.7-10.3) mg/dL Total Protein 6.0 L (6.2-8.2) g/dL Stool Occult Blood (Negative) 08/06/21 Range/Units 07:12 WBC (3.8-10.6) k/uL Neutrophils # (1.3-7.7) k/uL Lymphocytes # (1.0-4.8) k/uL Monocytes # (0-1.0) k/uL APTT (22.0-30.0) sec Sodium (137-145) mmol/L Carbon Dioxide (20.0-27.5) mmol/L BUN (7-17) mg/dL BUN/Creatinine Ratio (12.00-20.00) Ratio Glucose (74-99) mg/dL POC Glucose (mg/dL) 149 H (75-99) mg/dL Hemoglobin A1c (4.0-6.0) % Plasma Lactic Acid Olivier (0.7-2.0) mmol/L Calcium (8.7-10.3) mg/dL Total Protein (6.2-8.2) g/dL Stool Occult Blood (Negative) Assessment and Plan Plan: Acute diverticulitis with diverticular bleed, rule out ischemic colitis GI to evaluate Continue ceftriaxone and Flagyl Morphine as needed for pain Continue NPO IV fluids Follow-up CBC Lung mass Seen on chest CT, could be secondary to pneumonia versus tumor Consult pulmonary Hypertension Resume atenolol Diabetes type 2, diet-controlled A1c 6.3 Sliding scale insulin Anticipated disposition: Home in 2-3 days
--- NOTE | 2021-08-06 12:12 | P.CONS ---
History of Present Illness - Reason for Consult Consult date: 08/06/21 Rectal bleeding Requesting physician: Nikita Christina - Chief Complaint Rectal bleeding - History of Present Illness This is an 81-year-old white female who presented to the emergency department with complaints of rectal bleeding that began yesterday morning. Has a past medical history diabetes mellitus, GERD, hyperlipidemia, hypertension, [place], rheumatoid arthritis and breast cancer. Patient states she had bright red blood per rectum with abdominal cramping that occurred 8-9 times. She had no previous history in the past of GI bleed. She denies any history of ulcerative colitis or Crohn's disease. She is unsure of her last colonoscopy but states it was sev eral years ago. She did have EGD in 2017 for difficulty with swallowing and had a distal esophageal stricture status post dilation. She denies any anticoagulation or frequent NSAID use. She does state she has a history of diverticulosis. She had a CT of the abdomen and pelvis that showed diverti culosis without acute diverticulitis in the sigmoid colon. Mild wall thickening not excluded correlate for mild underlying colitis. The patient denies any sick contacts or recent illness. She does state that she had some nausea yesterday and one small episode of emesis that she swallowed back down. Patient still had loose bowel movement this morning that was mixed with blood and clots. No fur ther nausea or vomiting. Admission patient was noted to have a WBC of 24.8 hemoglobin 14.1 platelet count 156,000 INR 1.0 she did have plasma lactic acid of 4.0 and was given IV hydration. Today's repeat labs WBC 26.4 hemoglobin 13.9 hematocrit 42.3 platelet count 163,000 total bilirubin 0.5 AST 18 ALT 23 alkaline phosphatase 80. Patient had a positive stool occult blood Review of Systems REVIEW OF SYSTEMS: CARDIOPULMONARY: No chest pain or shortness of breath. Gastrointestinal: Left lower abdominal pain, describes as cramping. Nausea with no vomiting. No hematemesis, coffee-ground emesis. Bright red blood per rectum with diarrhea and next with clots. GENITOURINARY: No dysuria or hematuria. MUSCULOSKELETAL: Reports normal range of motion., Joint pain. SKIN: No rashes. No jaundice. ENDOCRINE: No chills, fevers. No excessive weight gain or loss. No polydipsia or polyuria. PSYCHIATRIC: Unremarkable. NEUROLOGY: No change in mental status. Denies dizziness, headache. ENT: Vision unremarkable. CONSTITUTIONAL: No recent weight loss. No fever, chills, night sweats. Past Medical History Past Medical History: Cancer, Diabetes Mellitus, GERD/Reflux, Hyperlipidemia, Hypertension, Myocardial Infarction ([place]), Osteoarthritis (OA), Rheumatoid Arthritis (RA) Additional Past Medical History / Comment(s): migraines, left breast cancer 2009, DIABETIC -CONTROLLED WITH DIET "borderline" Last Myocardial Infarction Date:: unknown History of Any Multi-Drug Resistant Organisms: None Reported Past Surgical History: Breast Surgery, Hysterectomy, Orthopedic Surgery Additional Past Surgical History / Comment(s): left breast lumpectomy, left knee arthroscopy, chelsie cataracts, rt hand surgery-tumor removed from index finger, LEFT HIP REPLACEMENT Past Anesthesia/Blood Transfusion Reactions: Motion Sickness Additional Past Anesthesia/Blood Transfusion Reaction / Comm: "after EGD I had dislocated jaw, ear ache for 3 weeks and dislocated rt shoulder-not sure what happened", "I vomited for 2 days after hip surgery" Past Psychological History: Anxiety, Depression Smoking Status: Former smoker Past Alcohol Use History: None Reported Additional Past Alcohol Use History / Comment(s): STARTED SMOKING AGE 13 QUIT SMOKING 1982 SMOKED 1PPD Past Drug Use History: None Reported - Past Family History Father Family Medical History: Cancer Daughter(s) Family Medical History: Cancer Additional Family Medical History / Comment(s): skin Medications and Allergies Home Medications Medication Instructions Recorded Confirmed Type Cholecalciferol [Vitamin D3 (25 25 mcg PO DAILY 10/08/15 08/05/21 History Mcg = 1000 Iu)] [place]-3 Fatty Acids/Fish Oil [Fish 1 cap PO DAILY 10/08/15 08/05/21 History Oil 1,000 mg Softgel] Docusate [Colace] 100 mg PO BID 01/28/17 08/05/21 History Aspirin/Calcium Carbonate/Mag 650 mg PO DAILY PRN 12/31/20 08/05/21 History [Buffered Aspirin 325 mg Tb] atenoloL 25 mg PO BID 12/31/20 08/05/21 History Aspirin [Adult Low Dose Aspirin EC] 81 mg PO DAILY 08/05/21 08/05/21 History Garlique 1 cap PO DAILY 08/05/21 08/05/21 History Red Yeast Rice 600 mg PO DAILY 08/05/21 08/05/21 History Vit C/Ascorb Sod/Multivit-Min 1,000 mg PO DAILY 08/05/21 08/05/21 History [Emergen-C 500 mg Chewable Tab] Vit C/E/Zn/Coppr/Lutein/Zeaxan 1 cap PO BID 08/05/21 08/05/21 History [Preservision Areds 2 Softgel] Vitamin B Complex 1 cap PO DAILY 08/05/21 08/05/21 History Allergies Allergy/AdvReac Type Severity Reaction Status Date / Time acetaminophen [From Tylenol] Allergy Unknown Verified 08/05/21 14:09 aspirin Allergy Unknown Verified 08/05/21 14:09 [From Excedrin Extra Strength] caffeine Allergy Unknown Verified 08/05/21 14:09 [From Excedrin Extra Strength] celecoxib [From Celebrex] Allergy Rash/Hives Verified 08/05/21 14:09 duloxetine Allergy Unknown Verified 08/05/21 14:09 escitalopram Allergy Unknown Verified 08/05/21 14:09 iodine Allergy Swelling Verified 08/05/21 14:09 latex Allergy Anaphylaxis Verified 08/05/21 14:09 niacin Allergy Rash/Hives Verified 08/05/21 14:09 Penicillins Allergy Rash/Hives Verified 08/05/21 14:09 povidone-iodine Allergy Rash/Hives Verified 08/05/21 14:09 [From Betadine] simvastatin Allergy Unknown Verified 08/05/21 14:09 sulfamethoxazole Allergy Unknown Verified 08/05/21 14:09 [From Septra] trimethoprim [From Septra] Allergy Unknown Verified 08/05/21 14:09 atorvastatin calcium AdvReac muscle pain Verified 08/05/21 14:09 [From Lipitor] naproxen sodium [From Aleve] AdvReac migraines Verified 08/05/21 14:09 warfarin sodium AdvReac Vomiting Verified 08/05/21 14:09 [From Coumadin] ivory soap Allergy Unknown Uncoded 08/05/21 14:09 Physical Exam Vitals: Vital Signs Temp Pulse Pulse Resp BP BP Pulse Ox 08/06/21 02:00 97.9 F 72 16 145/75 93 L 08/05/21 21:53 98.3 F 107 H 159/81 94 L 08/05/21 20:00 98.3 F 100 18 183/75 94 L 08/05/21 14:30 97.9 F 63 18 161/97 95 08/05/21 11:25 97.5 F L 61 18 170/79 97 Intake and Output 08/05/21 08/06/21 08/06/21 22:59 06:59 14:59 Intake Total 2500 Output Total 1 Balance 2499 Intake: Intake, IV Titration 2500 Amount Sodium Chloride 0.9% 1, 1300 000 ml @ 130 mls/hr IV . Q7H42M [facility] Rx#:[id number] Sodium Chloride 0.9% 1, 1000 000 ml @ 999 mls/hr IV . Q1H1M [facility] Rx#:[id number] metroNIDAZOLE-NS PMX 500 200 mg In Saline 1 100ml.bag @ 100 mls/hr IVPB Q6H [facility] Rx#:[id number] Output: Urine 1 Other: # Bowel Movements 3 Weight 90.718 kg General appearance: The patient is alert, oriented, appears in no acute distress. HET: Head is normocephalic and atraumatic. Conjunctiva pink. Sclera anicteric. Neck: Supple without lymphadenopathy. Trachea midline. Heart: S1 S2. Regular rate and rhythm. Lungs: Clear to auscultation. Abdomen: Soft, left lower quadrant tenderness, nondistended with bowel sounds. No guarding or rigidity. Skin: No rashes. No jaundice. Extremities: Normal skin color and turgor. No pedal edema. Neurological: No focal deficits. Alert and oriented x3. Results CBC & Chem 7: 08/06/21 05:00 08/06/21 05:00 Labs: Abnormal Lab Results - Last 24 Hours (Table) 08/05/21 08/05/21 08/05/21 Range/Units 11:53 11:53 11:53 WBC 21.0 H (3.8-10.6) k/uL Neutrophils # 18.8 H (1.3-7.7) k/uL Lymphocytes # 0.9 L (1.0-4.8) k/uL Monocytes # 1.1 H (0-1.0) k/uL APTT 19.4 L (22.0-30.0) sec Sodium 134 L (137-145) mmol/L BUN 21 H (7-17) mg/dL Glucose 194 H (74-99) mg/dL POC Glucose (mg/dL) (75-99) mg/dL Hemoglobin A1c (4.0-6.0) % Plasma Lactic Acid Olivier (0.7-2.0) mmol/L Stool Occult Blood (Negative) 08/05/21 08/05/21 08/05/21 Range/Units 11:53 12:04 14:59 WBC (3.8-10.6) k/uL Neutrophils # (1.3-7.7) k/uL Lymphocytes # (1.0-4.8) k/uL Monocytes # (0-1.0) k/uL APTT (22.0-30.0) sec Sodium (137-145) mmol/L BUN (7-17) mg/dL Glucose (74-99) mg/dL POC Glucose (mg/dL) (75-99) mg/dL Hemoglobin A1c 6.3 H (4.0-6.0) % Plasma Lactic Acid Olivier 3.2 H* (0.7-2.0) mmol/L Stool Occult Blood Positive H (Negative) 08/05/21 08/05/21 08/05/21 Range/Units 15:45 17:17 18:38 WBC (3.8-10.6) k/uL Neutrophils # (1.3-7.7) k/uL Lymphocytes # (1.0-4.8) k/uL Monocytes # (0-1.0) k/uL APTT (22.0-30.0) sec Sodium (137-145) mmol/L BUN (7-17) mg/dL Glucose (74-99) mg/dL POC Glucose (mg/dL) 205 H (75-99) mg/dL Hemoglobin A1c (4.0-6.0) % Plasma Lactic Acid Olivier 3.5 H* 4.6 H* (0.7-2.0) mmol/L Stool Occult Blood (Negative) 08/05/21 08/05/21 08/05/21 Range/Units 20:37 22:32 22:32 WBC 24.8 H (3.8-10.6) k/uL Neutrophils # (1.3-7.7) k/uL Lymphocytes # (1.0-4.8) k/uL Monocytes # (0-1.0) k/uL APTT (22.0-30.0) sec Sodium (137-145) mmol/L BUN (7-17) mg/dL Glucose (74-99) mg/dL POC Glucose (mg/dL) 186 H (75-99) mg/dL Hemoglobin A1c (4.0-6.0) % Plasma Lactic Acid Olivier 4.0 H* (0.7-2.0) mmol/L Stool Occult Blood (Negative) 08/06/21 08/06/21 08/06/21 Range/Units 01:55 05:00 07:12 WBC 26.4 H (3.8-10.6) k/uL Neutrophils # 22.8 H (1.3-7.7) k/uL Lymphocytes # (1.0-4.8) k/uL Monocytes # 1.6 H (0-1.0) k/uL APTT (22.0-30.0) sec Sodium (137-145) mmol/L BUN (7-17) mg/dL Glucose (74-99) mg/dL POC Glucose (mg/dL) 149 H (75-99) mg/dL Hemoglobin A1c (4.0-6.0) % Plasma Lactic Acid Olivier 2.3 H* (0.7-2.0) mmol/L Stool Occult Blood (Negative) CT scan - abdomen: report reviewed (Left posterior lateral lung mass or consolidation. Differential could include neoplasm, pneumonia, atelectasis. Possible small nodule posterior lateral right lung. Tiny punctuate nonobstructing inferior right renal stone. Diverticulosis without acute diverticulitis in the sigmoid colon. Mild wa) Assessment and Plan (1) Rectal bleeding Narrative/Plan: 81-year-old female who presented to the emergency department with complaints of lower abdominal cramping followed by several episodes of rectal bleeding. Patient states she had a 29 episodes of loose stool mixed with bright red blood and clots. Symptoms began yesterday. No previous history of GI bleed. She states that she is had no sick contacts, no fever or chills. She did have some nausea but no vomiting. She denies any anticoagulation. She did present with leukocytosis with a WBC of 24.8 with a stable hemoglobin at 14. Patient had a CT of the abdomen and pelvis showing diverticulosis without any evidence of diverticulitis with mild wall thickening correlate for possible mild colitis. CT of abdomen and pelvis also showed concerning area of a left posterior lateral lung mass or consolidation. Patient then had a CT of the left chest showing left posterior lateral lung mass or consolidation. Metastasis should be considered. states abdominal cramping and bleeding has improved today. Repeat hemoglobin stable and 13.9 WBC 26. She's been afebrile. She was started on Rocephin and Flagyl. Likely etiology is colitis, possible infectious, ischemic or inflammatory. Will order C. diff and stool cultures. Continue IV antibiotics. We'll need to consider other possible etiologies as CT of chest is suspicious for malignancy in left lung. Current Visit: Yes Status: Acute Code(s): K62.5 - HEMORRHAGE OF ANUS AND RECTUM SNOMED Code(s): 73367781 (2) Abdominal pain Current Visit: Yes Status: Acute Code(s): R10.9 - UNSPECIFIED ABDOMINAL PAIN SNOMED Code(s): 25584153 (3) Leukocytosis Current Visit: Yes Status: Acute Code(s): D72.829 - ELEVATED WHITE BLOOD CELL COUNT, UNSPECIFIED SNOMED Code(s): 786045466 Plan: 1. Continue symptomatic and supportive care 2. Continue IV antibiotics 3. Patient may have ice chips and popsicles 4. C. diff and stool cultures ordered 5. Further recommendations forthcoming based on clinical course Thank you for this consultation, we will continue to follow. Dr. Joe Caceres I agree with the dictator's note, documented as a scribe by Romy Ramsay.
[2021-08-06 16:39] LABS: Glucose,Whole Blood 126 mg/dL (75-99)
--- NOTE | 2021-08-06 16:53 | P.CNPUL ---
History of Present Illness Consult date: 08/06/21 Requesting physician: Lino Gusman Chief complaint: Lung mass History of present illness: 81-year-old white female patient's with past history of breast cancer in the left breast status post radiation, patient follows with Dr. Wiley, history of diabetes mellitus, hypertension, hyperlipidemia, previous history of VA, osteoarthritis, rheumatoid arthritis. Patient also reports history of esophageal narrowing for which she required esophageal dilatation by Dr. Caceres 4 years ago. Patient presented to the emergency department on 08/05/2021 for evaluation of rectal bleeding. Patient was having some left-sided abdominal pain, as well as epigastric pain, she woke up in the middle of the night and had a large bowel movement. She had a bit of bright red blood per rectum. Reports some nausea but no vomiting. Denied any chest pain or shortness of breath. No fever or chills. No cough or phlegm production. CT of the abdomen and pelvis without contrast was completed showing left posterior lateral lung mass or consolidation with a differential including neoplasm pneumonia or atelectasis. There was also possible small nodule in the posterior lateral right lung and follow-up CT of skin of the chest was recommended, there was diverticulosis without acute diverticulitis in the sigmoid colon correlating for mild underlying colitis. Admission labs showed leukocytosis and a white count of 21 on admission, hemoglobin was 13.9, INR was 1.0, sodium is 134, the rest of electrolytes were within normal limits, BUN is 21 creatinine 0.65. Plasma lactic acid was 3.2, LFTs are within normal limits, troponin was negative at less than 0.012, stools positive for occult blood, COVID-19 testing was negative. Patient was given IV fluids, she has not required any blood transfusions. Dedicated CT chest has been obtained which was completed without contrast showing left posterior lateral lung mass or consolidation, with the possibility of metastasis, and additional workup was recommended, additional lung densities, and prior left breast lumpectomy changes. Patient reports history of smoking in the remote past, which has been in remission since 1982, patient states she used to smoke for a period of about 20 years, cigarettes and a pipe, denies any history of asthma or COPD, she is not on any inhalers, not on any home oxygen. She is breathing comfortably, room air pulse ox is 97%, afebrile, she reports intermittent dysphagia, however she has not been back to see Dr. Caceres for the last 4 years. She states occasionally she will have trouble swallowing, but for the most part she is able to get liquids and solids down without any problems. In the past patient was found to have distal esophageal stricture post balloon dilation, and LA grade B reflux esophagitis, small hiatal hernia and this was done in January 2017. Denies any significant pulmonary symptoms. She states she had a recent PET scan mammogram at one of the [place] facilities, she is not sure when exactly, she states Dr. Inez becerra have all the records. Review of Systems All systems: negative Constitutional: Denies chills, Denies fever Eyes: denies blurred vision, denies pain Ears, nose, mouth and throat: Denies headache, Denies sore throat Cardiovascular: Denies chest pain, Denies shortness of breath Respiratory: Denies cough Gastrointestinal: Reports hematochezia, Denies abdominal pain, Denies diarrhea, Denies nausea, Denies vomiting Genitourinary: Denies dysuria, Denies hematuria Musculoskeletal: Denies myalgias Integumentary: Denies pruritus, Denies rash Neurological: Denies numbness, Denies weakness Psychiatric: Denies anxiety, Denies depression Endocrine: Denies fatigue, Denies weight change Past Medical History Past Medical History: Cancer, Diabetes Mellitus, GERD/Reflux, Hyperlipidemia, Hypertension, Myocardial Infarction (VA), Osteoarthritis (OA), Rheumatoid Arthritis (RA) Additional Past Medical History / Comment(s): migraines, left breast cancer 2009, DIABETIC -CONTROLLED WITH DIET "borderline" Last Myocardial Infarction Date:: unknown History of Any Multi-Drug Resistant Organisms: None Reported Past Surgical History: Breast Surgery, Hysterectomy, Orthopedic Surgery Additional Past Surgical History / Comment(s): left breast lumpectomy, left knee arthroscopy, chelsie cataracts, rt hand surgery-tumor removed from index finger, LEFT HIP REPLACEMENT Past Anesthesia/Blood Transfusion Reactions: Motion Sickness Additional Past Anesthesia/Blood Transfusion Reaction / Comment(s): "after EGD I had dislocated jaw, ear ache for 3 weeks and dislocated rt shoulder-not sure what happened", "I vomited for 2 days after hip surgery" Past Psychological History: Anxiety, Depression Smoking Status: Former smoker Past Alcohol Use History: None Reported Additional Past Alcohol Use History / Comment(s): STARTED SMOKING AGE 13 QUIT SMOKING 1983 SMOKED 1PPD Past Drug Use History: None Reported - Past Family History Father Family Medical History: Cancer Daughter(s) Family Medical History: Cancer Additional Family Medical History / Comment(s): skin Medications and Allergies Home Medications Medication Instructions Recorded Confirmed Type Cholecalciferol [Vitamin D3 (25 25 mcg PO DAILY 10/08/15 08/05/21 History Mcg = 1000 Iu)] [place]-3 Fatty Acids/Fish Oil [Fish 1 cap PO DAILY 10/08/15 08/05/21 History Oil 1,000 mg Softgel] Docusate [Colace] 100 mg PO BID 01/28/17 08/05/21 History Aspirin/Calcium Carbonate/Mag 650 mg PO DAILY PRN 12/31/20 08/05/21 History [Buffered Aspirin 325 mg Tb] atenoloL 25 mg PO BID 12/31/20 08/05/21 History Aspirin [Adult Low Dose Aspirin EC] 81 mg PO DAILY 08/05/21 08/05/21 History Garlique 1 cap PO DAILY 08/05/21 08/05/21 History Red Yeast Rice 600 mg PO DAILY 08/05/21 08/05/21 History Vit C/Ascorb Sod/Multivit-Min 1,000 mg PO DAILY 08/05/21 08/05/21 History [Emergen-C 500 mg Chewable Tab] Vit C/E/Zn/Coppr/Lutein/Zeaxan 1 cap PO BID 08/05/21 08/05/21 History [Preservision Areds 2 Softgel] Vitamin B Complex 1 cap PO DAILY 08/05/21 08/05/21 History Allergies Allergy/AdvReac Type Severity Reaction Status Date / Time acetaminophen [From Tylenol] Allergy Unknown Verified 08/05/21 14:09 aspirin Allergy Unknown Verified 08/05/21 14:09 [From Excedrin Extra Strength] caffeine Allergy Unknown Verified 08/05/21 14:09 [From Excedrin Extra Strength] celecoxib [From Celebrex] Allergy Rash/Hives Verified 08/05/21 14:09 duloxetine Allergy Unknown Verified 08/05/21 14:09 escitalopram Allergy Unknown Verified 08/05/21 14:09 iodine Allergy Swelling Verified 08/05/21 14:09 latex Allergy Anaphylaxis Verified 08/05/21 14:09 niacin Allergy Rash/Hives Verified 08/05/21 14:09 Penicillins Allergy Rash/Hives Verified 08/05/21 14:09 povidone-iodine Allergy Rash/Hives Verified 08/05/21 14:09 [From Betadine] simvastatin Allergy Unknown Verified 08/05/21 14:09 sulfamethoxazole Allergy Unknown Verified 08/05/21 14:09 [From Septra] trimethoprim [From Septra] Allergy Unknown Verified 08/05/21 14:09 atorvastatin calcium AdvReac muscle pain Verified 08/05/21 14:09 [From Lipitor] naproxen sodium [From Aleve] AdvReac migraines Verified 08/05/21 14:09 warfarin sodium AdvReac Vomiting Verified 08/05/21 14:09 [From Coumadin] ivory soap Allergy Unknown Uncoded 08/05/21 14:09 Physical Exam Vitals: Vital Signs Temp Pulse Resp BP Pulse Ox 08/06/21 14:00 98.1 F 66 18 177/68 97 08/06/21 08:00 97.9 F 68 16 162/66 95 08/06/21 02:00 97.9 F 72 16 145/75 93 L 08/05/21 21:53 98.3 F 107 H 159/81 94 L 08/05/21 20:00 98.3 F 100 18 183/75 94 L Intake and Output 08/06/21 08/06/21 08/06/21 06:59 14:59 22:59 Intake Total 2500 Output Total 1 Balance 2499 Intake: Intake, IV Titration 2500 Amount Sodium Chloride 0.9% 1, 1300 000 ml @ 130 mls/hr IV . Q7H42M [facility] Rx#:[id number] Sodium Chloride 0.9% 1, 1000 000 ml @ 999 mls/hr IV . Q1H1M [facility] Rx#:[id number] metroNIDAZOLE-NS PMX 500 200 mg In Saline 1 100ml.bag @ 100 mls/hr IVPB Q6H [facility] Rx#:[id number] Output: Urine 1 Other: # Bowel Movements 3 GENERAL EXAM: Alert, very pleasant, 81-year-old white female, on room air with a pulse ox of 97%, comfortable in no apparent distress. HEAD: Normocephalic/atraumatic. EYES: Normal reaction of pupils, equal size. Conjunctiva pink, sclera white. NOSE: Clear with pink turbinates. THROAT: No erythema or exudates. NECK: No masses, no JVD, no thyroid enlargement, no adenopathy. CHEST: No chest wall deformity. Symmetrical expansion. LUNGS: Equal air entry with no crackles, wheeze, rhonchi or dullness. CVS: Regular rate and rhythm, normal S1 and S2, no gallops, no murmurs, no rubs ABDOMEN: Soft, nontender. No hepatosplenomegaly, normal bowel sounds, no guarding or rigidity. EXTREMITIES: No clubbing, no edema, no cyanosis, 2+ pulses and upper and lower extremities. MUSCULOSKELETAL: Muscle strength and tone normal. SPINE: No scoliosis or deformity SKIN: No rashes CENTRAL NERVOUS SYSTEM: Alert and oriented -3. No focal deficits, tone is normal in all 4 extremities. PSYCHIATRIC: Alert and oriented -3. Appropriate affect. Intact judgment and insight. Results - Laboratory Findings CBC and BMP: 08/06/21 05:00 08/06/21 05:00 PT/INR, D-dimer PT 10.7 sec (9.0-12.0) 08/05/21 11:53 INR 1.0 (<1.2) 08/05/21 11:53 Abnormal lab findings: Abnormal Labs 08/05/21 08/05/21 08/05/21 11:53 11:53 11:53 WBC 21.0 H Neutrophils # 18.8 H Lymphocytes # 0.9 L Monocytes # 1.1 H APTT 19.4 L Sodium 134 L Carbon Dioxide BUN 21 H BUN/Creatinine Ratio Glucose 194 H POC Glucose (mg/dL) Hemoglobin A1c Plasma Lactic Acid Olivier Calcium Total Protein Stool Occult Blood 08/05/21 08/05/21 08/05/21 11:53 12:04 14:59 WBC Neutrophils # Lymphocytes # Monocytes # APTT Sodium Carbon Dioxide BUN BUN/Creatinine Ratio Glucose POC Glucose (mg/dL) Hemoglobin A1c 6.3 H Plasma Lactic Acid Olivier 3.2 H* Calcium Total Protein Stool Occult Blood Positive H 08/05/21 08/05/21 08/05/21 15:45 17:17 18:38 WBC Neutrophils # Lymphocytes # Monocytes # APTT Sodium Carbon Dioxide BUN BUN/Creatinine Ratio Glucose POC Glucose (mg/dL) 205 H Hemoglobin A1c Plasma Lactic Acid Olivier 3.5 H* 4.6 H* Calcium Total Protein Stool Occult Blood 08/05/21 08/05/21 08/05/21 20:37 22:32 22:32 WBC 24.8 H Neutrophils # Lymphocytes # Monocytes # APTT Sodium Carbon Dioxide BUN BUN/Creatinine Ratio Glucose POC Glucose (mg/dL) 186 H Hemoglobin A1c Plasma Lactic Acid Olivier 4.0 H* Calcium Total Protein Stool Occult Blood 08/06/21 08/06/21 08/06/21 01:55 05:00 05:00 WBC 26.4 H Neutrophils # 22.8 H Lymphocytes # Monocytes # 1.6 H APTT Sodium 134 L Carbon Dioxide 18.8 L BUN BUN/Creatinine Ratio 25.67 H Glucose 168 H POC Glucose (mg/dL) Hemoglobin A1c Plasma Lactic Acid Olivier 2.3 H* Calcium 8.5 L Total Protein 6.0 L Stool Occult Blood 08/06/21 07:12 WBC Neutrophils # Lymphocytes # Monocytes # APTT Sodium Carbon Dioxide BUN BUN/Creatinine Ratio Glucose POC Glucose (mg/dL) 149 H Hemoglobin A1c Plasma Lactic Acid Olivier Calcium Total Protein Stool Occult Blood - Diagnostic Findings Chest x-ray: report reviewed, image reviewed CT scan - chest: report reviewed, image reviewed Additional studies: CT of the abdomen and pelvis has been reviewed Assessment and Plan Plan: Assessment: #1. Left posterior lateral lung mass or consolidation with additional lung densities, with consideration for metastasis, especially in view of patient's history of breast cancer on the left side with previous history of radiation in 2009. Patient will need outpatient workup, including a PET scan #2. Rectal bleeding, with the possibility of colitis, possibly infectious ischemic or inflammatory, GI service is following, patient remains on antibiotics, hemoglobin is stable at 13.9 #3. History of left breast cancer with lumpectomy followed by radiation in 2009. Patient reports recent follow-up mammogram, and PET scan that was done at an outside facility, the results of which are not available to us, patient does follow with Dr. Wiley for medical oncology #4. Remote history of smoking, cigarettes and smoking pipe, in remission since 1982, did smoke for about 20 years before she quit #5. Diabetes mellitus type 2, #6. Previous history of esophageal stricture requiring dilatation in January 2017 #7. History of intermittent dysphagia #8. Hypertension #9. Hyperlipidemia #10. Previous history of myocardial infarction #11. Rheumatoid arthritis #12. Migraine headaches Plan: CT of the abdomen and pelvis and CT of the chest have been reviewed Patient will need outpatient workup for the findings and the possibility of metastatic lung cancer No hemoptysis, no shortness of breath, vital signs are stable, patient is on room air She will need to follow-up with Dr. Vicente in the office and we'll discuss outpatient PET scan or a bronchoscopy and biopsies, or both I performed a history & physical examination of the patient and discussed their management with my nurse practitioner, Lupe Lopez. I reviewed the nurse practitioner's note and agree with the documented findings and plan of care. Lung sounds are positive for dim breath sounds throughout the lung alvares. The findings and the impression was discussed with the patient. I attest to the documentation by the nurse practitioner. Time with Patient: Greater than 30
[2021-08-06 20:06] LABS: Glucose,Whole Blood 129 mg/dL (75-99)
[2021-08-07] MEDS: metroNIDAZOLE-NS PMX 500 MG in SALINE 1 100ML.BAG IVPB SCH ×5 (00:53→23:00)
[2021-08-07] MEDS: INSULIN ASPART (NovoLOG) 100 UNIT/ML VIAL SQ SCH ×5 (00:53→20:34)
[2021-08-07] MEDS: SODIUM CHLORIDE 0.9% 1,000 ML IV SCH ×3 (04:20→20:35)
[2021-08-07 07:28] LABS: Glucose,Whole Blood 137 mg/dL (75-99)
[2021-08-07] MEDS: atenoloL 25 MG TAB PO SCH ×2 (07:39→20:34)
[2021-08-07] MEDS: PANTOPRAZOLE 40 MG/10 ML VIAL IV SCH ×2 (07:39→20:34)
[2021-08-07 09:09] LABS: HCT 36.9 % (37.2-46.3); MCH 28.9 pg (27.0-32.0); MCHC 32.5 g/dL (32.0-37.0); MCV 88.9 fL (80.0-97.0); Mean Platelet Volume 11.4 fL (9.5-12.2); Platelet Count 155 X 10*3/uL (140-440); RBC 4.15 X 10*6/uL (4.10-5.20); RDW 14.9 % (11.5-14.5); WBC 25.59 X 10*3/uL (4.50-10.00)
[2021-08-07 09:47] LABS: African American GFR (CKD) 103.7 (60.0-200.0); Anion Gap 10.6 mmol/L (10.00-18.00); BUN/Creat Ratio 25.6 Ratio (12.00-20.00); Blood Urea Nitrogen 12.8 mg/dL (9.0-27.0); Calcium 8.2 mg/dL (8.7-10.3); Carbon Dioxide 21.4 mmol/L (20.0-27.5); Magnesium 1.8 mg/dL (1.5-2.4); Non-African American GFR(CKD) 89.5 (60.0-200.0); Potassium 3.4 mmol/L (3.5-5.5)
[2021-08-07 09:49] LABS: Basophils # (A) 0.05 X 10*3/uL (0.00-0.10); Basophils % (A) 0.2 %; Eosinophils # (A) 0.01 X 10*3/uL (0.04-0.35); Eosinophils % (A) 0 %; Lymphocytes # (A) 2.54 X 10*3/uL (0.90-5.00); Lymphocytes % (A) 9.9 %; Monocytes # (A) 1.88 X 10*3/uL (0.20-1.00); Monocytes % (A) 7.3 %; Neutrophils # (A) 20.88 X 10*3/uL (1.80-7.70); Neutrophils % (A) 81.7 %
--- NOTE | 2021-08-07 11:11 | P.PN ---
Subjective Progress Note Date: 08/07/21 Principal diagnosis: Abdominal pain, GI bleed 81-year-old female who presented to the emergency department with complaints of abdominal pain and bright red blood per rectum. She had a CT of the abdomen that showed mild diverticulosis without acute diverticulitis of the sigmoid colon, mild wall thickening correlate for underlying mild colitis. Pulmonary was consulted for abnormal findings on CT chest. Patient will follow up outpatient. Today she states she had some mild left lower abdominal pain that has improved now. She's not had any further bowel movements with blood rectal bleeding. She denies any nausea or vomiting. Objective - Vital Signs Vital signs: Vital Signs Temp 98.2 F 08/07/21 08:00 Pulse 71 08/07/21 08:00 Resp 17 08/07/21 08:00 BP 172/66 08/07/21 08:00 Pulse Ox 92 L 08/07/21 08:00 Intake & Output 08/06/21 08/07/21 08/07/21 18:59 06:59 18:59 Intake Total 1100 Balance 1100 Intake: Intake, IV Titration 1100 Amount Sodium Chloride 0.9% 1, 900 000 ml @ 130 mls/hr IV . Q7H42M [facility] Rx#:[id number] metroNIDAZOLE-NS PMX 500 200 mg In Saline 1 100ml.bag @ 100 mls/hr IVPB Q6H [facility] Rx#:[id number] Other: Voiding Method Toilet # Voids 3 # Bowel Movements 2 - Exam General appearance: The patient is alert, oriented, appears in no acute distress. HET: Head is normocephalic and atraumatic. Conjunctiva pink. Sclera anicteric. Neck: Supple without lymphadenopathy. Abdomen: Soft, left lower quadrant tenderness, nondistended with bowel sounds. No guarding or rigidity. Extremities: Normal skin color and turgor. No pedal edema Skin: No rashes, no jaundice Neurological: No focal deficits. Alert and oriented -3. - Labs CBC & Chem 7: 08/07/21 05:00 08/07/21 05:00 Labs: Abnormal Lab Results - Last 24 Hours (Table) 08/06/21 08/06/21 08/06/21 Range/Units 05:00 16:38 20:04 WBC (4.50-10.00) X 10*3/uL Hct (37.2-46.3) % RDW (11.5-14.5) % Sodium 134 L (135-145) mmol/L Carbon Dioxide 18.8 L (20.0-27.5) mmol/L BUN/Creatinine Ratio 25.67 H (12.00-20.00) Ratio Glucose 168 H (70-110) mg/dL POC Glucose (mg/dL) 126 H 129 H (75-99) mg/dL Calcium 8.5 L (8.7-10.3) mg/dL Total Protein 6.0 L (6.2-8.2) g/dL 08/07/21 08/07/21 Range/Units 05:00 07:26 WBC 25.59 H (4.50-10.00) X 10*3/uL Hct 36.9 L (37.2-46.3) % RDW 14.9 H (11.5-14.5) % Sodium (135-145) mmol/L Carbon Dioxide (20.0-27.5) mmol/L BUN/Creatinine Ratio (12.00-20.00) Ratio Glucose (70-110) mg/dL POC Glucose (mg/dL) 137 H (75-99) mg/dL Calcium (8.7-10.3) mg/dL Total Protein (6.2-8.2) g/dL Microbiology - Last 24 Hours (Table) 08/05/21 13:00 Blood Culture - Preliminary Blood No Growth after 24 hours Assessment and Plan (1) Rectal bleeding Narrative/Plan: 81-year-old female who presented to the emergency department with complaints of lower abdominal cramping followed by several episodes of rectal bleeding. Patient states she had a 29 episodes of loose stool mixed with bright red blood and clots. Symptoms began yesterday. No previous history of GI bleed. She states that she is had no sick contacts, no fever or chills. She did have some nausea but no vomiting. She denies any anticoagulation. She did present with leukocytosis with a WBC of 24.8 with a stable hemoglobin at 14. Patient had a CT of the abdomen and pelvis showing diverticulosis without any evidence of diverticulitis with mild wall thickening correlate for possible mild colitis. CT of abdomen and pelvis also showed concerning area of a left posterior lateral lung mass or consolidation. Patient then had a CT of the left chest showing left posterior lateral lung mass or consolidation. Metastasis should be considered. states abdominal cramping and bleeding has improved today. Repeat hemoglobin stable and 13.9 WBC 26. She's been afebrile. She was started on Rocephin and Flagyl. Likely etiology is colitis, possible infectious, ischemic or inflammatory. Will order C. diff and stool cultures. Continue IV antibiotics. We'll need to consider other possible etiologies as CT of chest is suspicious for malignancy in left lung. Rectal bleeding improved, no further bleeding since yesterday evening. Patient now reports bowel movements more formed. Current Visit: Yes Status: Acute Code(s): K62.5 - HEMORRHAGE OF ANUS AND RECTUM SNOMED Code(s): 75293529 (2) Abdominal pain Current Visit: Yes Status: Acute Code(s): R10.9 - UNSPECIFIED ABDOMINAL PAIN SNOMED Code(s): 78133021 (3) Leukocytosis Current Visit: Yes Status: Acute Code(s): D72.829 - ELEVATED WHITE BLOOD CELL COUNT, UNSPECIFIED SNOMED Code(s): 801139767 Plan: 1. Continue symptomatic and supportive care 2. Continue IV antibiotics 3. Patient may have ice chips and popsicles 4. C. diff and stool cultures ordered 5. May advance to full liquid diet Thank you for allowing us to participate in the care of the patient, the GI service will sign off, gastroenterology will not be available at the hospital this weekend. If further evaluation by gastroenterology is required the patient will need transfer as per the primary team's discretion. Dr. Joe Caceres I agree with the dictator's note, documented as a scribe by Romy Ramsay.
[2021-08-07 11:42] LABS: Glucose,Whole Blood 122 mg/dL (75-99)
[2021-08-07] MEDS ORDERED: POTASSIUM CHLORIDE ER 20 MEQ TAB.ER PO STA (12:23)
--- NOTE | 2021-08-07 12:24 | P.PN ---
Subjective Progress Note Date: 08/07/21 Principal diagnosis: rectal bleeding Patient continues to have diarrhea, her stool has been brown in color since last night. No further evidence of bleeding or black stools. No nausea or vomiting. Tolerating clear liquid diet. No fevers or chills. Objective - Vital Signs Vital signs: Vital Signs Temp 98.2 F 08/07/21 08:00 Pulse 71 08/07/21 08:00 Resp 17 08/07/21 08:00 BP 172/66 08/07/21 08:00 Pulse Ox 92 L 08/07/21 08:00 Intake & Output 08/06/21 08/07/21 08/07/21 18:59 06:59 18:59 Intake Total 1100 Balance 1100 Intake: Intake, IV Titration 1100 Amount Sodium Chloride 0.9% 1, 900 000 ml @ 130 mls/hr IV . Q7H42M [facility] Rx#:[id number] metroNIDAZOLE-NS PMX 500 200 mg In Saline 1 100ml.bag @ 100 mls/hr IVPB Q6H [facility] Rx#:[id number] Other: Voiding Method Toilet # Voids 3 # Bowel Movements 2 - Exam Constitutional: No acute distress, conversant, pleasant Eyes:Anicteric sclerae, moist conjunctiva, no lid-lag, PERRLA, ENMT: Oropharynx clear, no erythema, exudates Neck: Supple, FROM, no masses, or JVD, No carotid bruits, No thyromegaly Lungs: Clear to auscultation, Clear to percussion, Normal respiratory effort, no accessory muscle use Cardiovascular: Heart regular in rate and rhythm, No murmurs, gallops, or rubs, No peripheral edema Abdominal: Left-sided tenderness. No guarding, rebound or rigidity, Normoactive bowel sounds, No hepatomegaly, No splenomegaly, No palpable mass Skin: Normal temperature, tone, texture, turgor, no induration, No subcutaneous nodules, No rash, lesions, No ulcers Extremities: No digital cyanosis, No clubbing, Pedal pulses intact and symmetrical, Radial pulses intact and symmetrical, No calf tenderness Psychiatric: Alert and oriented to person, place and time, appropriate affect, intact judgement Neuro: Muscles Strength 5/5 in all 4 extremities, Sensation to light touch grossly present throughout, Cranial nerves II-XII grossly intact, no focal sensory deficits - Labs CBC & Chem 7: 01/07/22 05:00 08/07/21 05:00 Labs: Abnormal Lab Results - Last 24 Hours (Table) 08/06/21 08/06/21 08/07/21 Range/Units 16:38 20:04 05:00 WBC 25.59 H (4.50-10.00) X 10*3/uL Hct 36.9 L (37.2-46.3) % RDW 14.9 H (11.5-14.5) % Immature Gran # 0.23 H (0.00-0.04) X 10*3/uL Neutrophils # 20.88 H (1.80-7.70) X 10*3/uL Monocytes # 1.88 H (0.20-1.00) X 10*3/uL Eosinophils # 0.01 L (0.04-0.35) X 10*3/uL Sodium (135-145) mmol/L Potassium (3.5-5.5) mmol/L Creatinine (0.6-1.5) mg/dL BUN/Creatinine Ratio (12.00-20.00) Ratio Glucose (70-110) mg/dL POC Glucose (mg/dL) 126 H 129 H (75-99) mg/dL Calcium (8.7-10.3) mg/dL 08/07/21 08/07/21 08/07/21 Range/Units 05:00 07:26 11:41 WBC (4.50-10.00) X 10*3/uL Hct (37.2-46.3) % RDW (11.5-14.5) % Immature Gran # (0.00-0.04) X 10*3/uL Neutrophils # (1.80-7.70) X 10*3/uL Monocytes # (0.20-1.00) X 10*3/uL Eosinophils # (0.04-0.35) X 10*3/uL Sodium 133 L (135-145) mmol/L Potassium 3.4 L (3.5-5.5) mmol/L Creatinine 0.5 L (0.6-1.5) mg/dL BUN/Creatinine Ratio 25.60 H (12.00-20.00) Ratio Glucose 125 H (70-110) mg/dL POC Glucose (mg/dL) 137 H 122 H (75-99) mg/dL Calcium 8.2 L (8.7-10.3) mg/dL Microbiology - Last 24 Hours (Table) 08/05/21 13:00 Blood Culture - Preliminary Blood No Growth after 24 hours Assessment and Plan Plan: Acute diverticulitis with diverticular bleed, rule out ischemic colitis, rule ou t infectious colitis Check stool cultures and C. diff Continue ceftriaxone and Flagyl Morphine as needed for pain GI following Continue NPO IV fluids Hemoglobin stable Advance diet today to full liquid. Lung mass Seen on chest CT, could be secondary to pneumonia versus tumor Seen by pulmonary, will need to follow up outpatient, patient was made aware Hypertension Resume atenolol Diabetes type 2, diet-controlled A1c 6.3 Sliding scale insulin Anticipated disposition: Home in 1-2 days
--- NOTE | 2021-08-07 13:33 | P.PN ---
Subjective Progress Note Date: 08/07/21 Principal diagnosis: Lung mass 81-year-old white female patient's with past history of breast cancer in the left breast status post radiation, patient follows with Dr. Wiley, history of diabetes mellitus, hypertension, hyperlipidemia, previous history of [place], osteoarthritis, rheumatoid arthritis. Patient also reports history of esophageal narrowing for which she required esophageal dilatation by Dr. Caceres 4 years ago. Patient presented to the emergency department on 08/05/2021 for evaluation of rectal bleeding. Patient was having some left-sided abdominal pain, as well as epigastric pain, she woke up in the middle of the night and had a large bowel movement. She had a bit of bright red blood per rectum. Reports some nausea but no vomiting. Denied any chest pain or shortness of breath. No fever or chills. No cough or phlegm production. CT of the abdomen and pelvis without contrast was completed showing left posterior lateral lung mass or consolidation with a differential including neoplasm pneumonia or atelectasis. There was also possible small nodule in the posterior lateral right lung and follow-up CT of skin of the chest was recommended, there was diverticulosis without acute diverticulitis in the sigmoid colon correlating for mild underlying colitis. Admission labs showed leukocytosis and a white count of 21 on admission, hemoglobin was 13.9, INR was 1.0, sodium is 134, the rest of electrolytes were within normal limits, BUN is 21 creatinine 0.65. Plasma lactic acid was 3.2, LFTs are within normal limits, troponin was negative at less than 0.012, stools positive for occult blood, COVID-19 testing was negative. Patient was given IV fluids, she has not required any blood transfusions. Dedicated CT chest has been obtained which was completed without contrast showing left posterior lateral lung mass or consolidation, with the possibility of metastasis, and additional workup was recommended, additional lung densities, and prior left breast lumpectomy changes. Patient reports history of smoking in the remote past, which has been in remission since 1982, patient states she used to smoke for a period of about 20 years, cigarettes and a pipe, denies any history of asthma or COPD, she is not on any inhalers, not on any home oxygen. She is breathing comfortably, room air pulse ox is 97%, afebrile, she reports intermittent dysphagia, however she has not been back to see Dr. Caceres for the last 4 years. She states occasionally she will have trouble swallowing, but for the most part she is able to get liquids and solids down without any problems. In the past patient was found to have distal esophageal stricture post balloon dilation, and LA grade B reflux esophagitis, small hiatal hernia and this was done in January 2017. Denies any significant pulmonary symptoms. She states she had a recent PET scan mammogram at one of the [place] facilities, she is not sure when exactly, she states Dr. Wiley should have all the records. on 08/07/2021 patient seen in follow-up on medical surgical floor, she is breathing comfortably, denies any cough, or dyspnea, she is on room air pulse ox is 93-95%, signs have been stable. Denies any chest pain or hemoptysis, she states that she still having diarrhea, without blood, white blood cell count is 25.5, hemoglobin is 12, sodium is 133, potassium is 3.4, chloride is 101, CO2 is 21.4, BUN is 12.8, and creatinine 0.5. Patient is having some abdominal cramping, but abdomen soft. Reports no swallowing issues Objective - Vital Signs Vital signs: Vital Signs Temp 98.2 F 08/07/21 08:00 Pulse 71 08/07/21 08:00 Resp 17 08/07/21 08:00 BP 172/66 08/07/21 08:00 Pulse Ox 92 L 08/07/21 08:00 Intake & Output 08/06/21 08/07/21 08/07/21 18:59 06:59 18:59 Intake Total 1100 Balance 1100 Intake: Intake, IV Titration 1100 Amount Sodium Chloride 0.9% 1, 900 000 ml @ 130 mls/hr IV . Q7H42M [facility] Rx#:[id number] metroNIDAZOLE-NS PMX 500 200 mg In Saline 1 100ml.bag @ 100 mls/hr IVPB Q6H [facility] Rx#:[id number] Other: Voiding Method Toilet # Voids 3 # Bowel Movements 2 - Exam GENERAL EXAM: Alert, very pleasant, 81-year-old white female, on room air with a pulse ox of 97%, comfortable in no apparent distress. HEAD: Normocephalic/atraumatic. EYES: Normal reaction of pupils, equal size. Conjunctiva pink, sclera white. NOSE: Clear with pink turbinates. THROAT: No erythema or exudates. NECK: No masses, no JVD, no thyroid enlargement, no adenopathy. CHEST: No chest wall deformity. Symmetrical expansion. LUNGS: Equal air entry with no crackles, wheeze, rhonchi or dullness. CVS: Regular rate and rhythm, normal S1 and S2, no gallops, no murmurs, no rubs ABDOMEN: Soft, nontender. No hepatosplenomegaly, normal bowel sounds, no guarding or rigidity. EXTREMITIES: No clubbing, no edema, no cyanosis, 2+ pulses and upper and lower extremities. MUSCULOSKELETAL: Muscle strength and tone normal. SPINE: No scoliosis or deformity SKIN: No rashes CENTRAL NERVOUS SYSTEM: Alert and oriented -3. No focal deficits, tone is normal in all 4 extremities. PSYCHIATRIC: Alert and oriented -3. Appropriate affect. Intact judgment and insight. - Labs CBC & Chem 7: 08/07/21 05:00 08/07/21 05:00 Labs: Abnormal Lab Results - Last 24 Hours (Table) 08/06/21 08/06/21 08/07/21 Range/Units 16:38 20:04 05:00 WBC 25.59 H (4.50-10.00) X 10*3/uL Hct 36.9 L (37.2-46.3) % RDW 14.9 H (11.5-14.5) % Immature Gran # 0.23 H (0.00-0.04) X 10*3/uL Neutrophils # 20.88 H (1.80-7.70) X 10*3/uL Monocytes # 1.88 H (0.20-1.00) X 10*3/uL Eosinophils # 0.01 L (0.04-0.35) X 10*3/uL Sodium (135-145) mmol/L Potassium (3.5-5.5) mmol/L Creatinine (0.6-1.5) mg/dL BUN/Creatinine Ratio (12.00-20.00) Ratio Glucose (70-110) mg/dL POC Glucose (mg/dL) 126 H 129 H (75-99) mg/dL Calcium (8.7-10.3) mg/dL 08/07/21 08/07/21 08/07/21 Range/Units 05:00 07:26 11:41 WBC (4.50-10.00) X 10*3/uL Hct (37.2-46.3) % RDW (11.5-14.5) % Immature Gran # (0.00-0.04) X 10*3/uL Neutrophils # (1.80-7.70) X 10*3/uL Monocytes # (0.20-1.00) X 10*3/uL Eosinophils # (0.04-0.35) X 10*3/uL Sodium 133 L (135-145) mmol/L Potassium 3.4 L (3.5-5.5) mmol/L Creatinine 0.5 L (0.6-1.5) mg/dL BUN/Creatinine Ratio 25.60 H (12.00-20.00) Ratio Glucose 125 H (70-110) mg/dL POC Glucose (mg/dL) 137 H 122 H (75-99) mg/dL Calcium 8.2 L (8.7-10.3) mg/dL Microbiology - Last 24 Hours (Table) 08/05/21 13:00 Blood Culture - Preliminary Blood No Growth after 24 hours Assessment and Plan Plan: Assessment: #1. Left posterior lateral lung mass or consolidation with additional lung densities, with consideration for metastasis, especially in view of patient's history of breast cancer on the left side with previous history of radiation in 2009. Patient will need outpatient workup, including a PET scan #2. Rectal bleeding, with the possibility of colitis, possibly infectious ischemic or inflammatory, GI service is following, patient remains on antibiotics, hemoglobin is stable at 13.9 #3. History of left breast cancer with lumpectomy followed by radiation in 2009. Patient reports recent follow-up mammogram, and PET scan that was done at an outside facility, the results of which are not available to us, patient does follow with Dr. Wiley for medical oncology #4. Remote history of smoking, cigarettes and smoking pipe, in remission since 1982, did smoke for about 20 years before she quit #5. Diabetes mellitus type 2, #6. Previous history of esophageal stricture requiring dilatation in January 2017 #7. History of intermittent dysphagia #8. Hypertension #9. Hyperlipidemia #10. Previous history of myocardial infarction #11. Rheumatoid arthritis #12. Migraine headaches Plan: outpatient follow-up with Dr. Vicente in the office Outpatient PET scan will be set up Possible bronchoscopy with biopsies on an outpatient basis I performed a history & physical examination of the patient and discussed their management with my nurse practitioner, Lupe Lopez. I reviewed the nurse practitioner's note and agree with the documented findings and plan of care. Lung sounds are positive for dim breath sounds throughout the lung alvares. The findings and the impression was discussed with the patient. I attest to the documentation by the nurse practitioner. Time with Patient: Less than 30
[2021-08-07 16:51] LABS: Glucose,Whole Blood 128 mg/dL (75-99)
[2021-08-07 20:25] LABS: Glucose,Whole Blood 147 mg/dL (75-99)
[2021-08-08] MEDS: metroNIDAZOLE-NS PMX 500 MG in SALINE 1 100ML.BAG IVPB SCH ×4 (05:43→23:11)
[2021-08-08] MEDS: SODIUM CHLORIDE 0.9% 1,000 ML IV SCH ×2 (05:43→18:47)
[2021-08-08 07:15] LABS: Glucose,Whole Blood 126 mg/dL (75-99)
[2021-08-08] MEDS: INSULIN ASPART (NovoLOG) 100 UNIT/ML VIAL SQ SCH ×4 (07:30→20:36)
[2021-08-08] MEDS: atenoloL 25 MG TAB PO SCH ×2 (08:11→20:17)
[2021-08-08] MEDS: PANTOPRAZOLE 40 MG/10 ML VIAL IV SCH ×2 (08:12→20:17)
[2021-08-08 10:04] LABS: Basophils # (A) 0.07 X 10*3/uL (0.00-0.10); Basophils % (A) 0.4 %; Eosinophils # (A) 0.09 X 10*3/uL (0.04-0.35); Eosinophils % (A) 0.5 %; HCT 37.9 % (37.2-46.3); HGB 12.3 g/dL (12.0-15.0); Lymphocytes # (A) 2.05 X 10*3/uL (0.90-5.00); Lymphocytes % (A) 10.4 %; MCH 28.7 pg (27.0-32.0); MCHC 32.5 g/dL (32.0-37.0); MCV 88.6 fL (80.0-97.0); Mean Platelet Volume 10.9 fL (9.5-12.2); Monocytes # (A) 1.37 X 10*3/uL (0.20-1.00); Monocytes % (A) 6.9 %; Neutrophils # (A) 15.95 X 10*3/uL (1.80-7.70); Neutrophils % (A) 80.8 %; Platelet Count 166 X 10*3/uL (140-440); RBC 4.28 X 10*6/uL (4.10-5.20); RDW 14.8 % (11.5-14.5); WBC 19.73 X 10*3/uL (4.50-10.00)
[2021-08-08 10:37] LABS: African American GFR (CKD) 96.4 (60.0-200.0); Anion Gap 13.2 mmol/L (10.00-18.00); BUN/Creat Ratio 14.76 Ratio (12.00-20.00); Blood Urea Nitrogen 9.2 mg/dL (9.0-27.0); Calcium 8.4 mg/dL (8.7-10.3); Carbon Dioxide 22.6 mmol/L (20.0-27.5); Magnesium 1.8 mg/dL (1.5-2.4); Non-African American GFR(CKD) 83.2 (60.0-200.0); Phosphorus 1.5 mg/dL (2.4-5.1); Potassium 3.5 mmol/L (3.5-5.5)
--- NOTE | 2021-08-08 11:22 | P.PN ---
Subjective Progress Note Date: 08/08/21 Principal diagnosis: rectal bleeding Patient continues diarrhea. She had total of 3 bowel movements yesterday. Today she had 1 loose stools. No black stools or clots. No nausea or vomiting. Tolerating diet. Objective - Vital Signs Vital signs: Vital Signs Temp 98.1 F 08/08/21 08:00 Pulse 72 08/08/21 08:00 Resp 18 08/08/21 08:00 BP 184/79 08/08/21 08:00 Pulse Ox 96 08/08/21 08:00 Intake & Output 08/07/21 08/08/21 08/08/21 18:59 06:59 18:59 Other: Voiding Method Toilet Toilet # Voids 4 2 # Bowel Movements 3 2 - Exam Constitutional: No acute distress, conversant, pleasant Eyes:Anicteric sclerae, moist conjunctiva, no lid-lag, PERRLA, ENMT: Oropharynx clear, no erythema, exudates Neck: Supple, FROM, no masses, or JVD, No carotid bruits, No thyromegaly Lungs: Clear to auscultation, Clear to percussion, Normal respiratory effort, no accessory muscle use Cardiovascular: Heart regular in rate and rhythm, No murmurs, gallops, or rubs, No peripheral edema Abdominal: Left-sided tenderness. No guarding, rebound or rigidity, Normoactive bowel sounds, No hepatomegaly, No splenomegaly, No palpable mass Skin: Normal temperature, tone, texture, turgor, no induration, No subcutaneous nodules, No rash, lesions, No ulcers Extremities: No digital cyanosis, No clubbing, Pedal pulses intact and symmetrical, Radial pulses intact and symmetrical, No calf tenderness Psychiatric: Alert and oriented to person, place and time, appropriate affect, intact judgement Neuro: Muscles Strength 5/5 in all 4 extremities, Sensation to light touch grossly present throughout, Cranial nerves II-XII grossly intact, no focal senso ry deficits - Labs CBC & Chem 7: 08/08/21 04:12 08/08/21 04:12 Labs: Abnormal Lab Results - Last 24 Hours (Table) 08/07/21 08/07/21 08/07/21 Range/Units 11:41 16:51 20:24 WBC (4.50-10.00) X 10*3/uL RDW (11.5-14.5) % Immature Gran # (0.00-0.04) X 10*3/uL Neutrophils # (1.80-7.70) X 10*3/uL Monocytes # (0.20-1.00) X 10*3/uL Glucose (70-110) mg/dL POC Glucose (mg/dL) 122 H 128 H 147 H (75-99) mg/dL Calcium (8.7-10.3) mg/dL Phosphorus (2.4-5.1) mg/dL 08/08/21 08/08/21 08/08/21 Range/Units 04:12 04:12 07:12 WBC 19.73 H (4.50-10.00) X 10*3/uL RDW 14.8 H (11.5-14.5) % Immature Gran # 0.20 H (0.00-0.04) X 10*3/uL Neutrophils # 15.95 H (1.80-7.70) X 10*3/uL Monocytes # 1.37 H (0.20-1.00) X 10*3/uL Glucose 128 H (70-110) mg/dL POC Glucose (mg/dL) 126 H (75-99) mg/dL Calcium 8.4 L (8.7-10.3) mg/dL Phosphorus 1.5 L (2.4-5.1) mg/dL Microbiology - Last 24 Hours (Table) 08/05/21 13:00 Blood Culture - Preliminary Blood No Growth after 48 hours Assessment and Plan Plan: Acute diverticulitis with diverticular bleed, rule out ischemic colitis, rule out infectious colitis Check stool cultures and C. diff--pending Continue ceftriaxone and Flagyl Morphine as needed for pain GI following IV fluids Hemoglobin stable Advance diet as tolerated Lung mass Seen on chest CT, could be secondary to pneumonia versus tumor Seen by pulmonary, will need to follow up outpatient, patient was made aware Hypertension Resume atenolol Diabetes type 2, diet-controlled A1c 6.3 Sliding scale insulin General weakness Seen by PT, patient is interested in going to rehab. Anticipated disposition: [facility] in 1-2 days
[2021-08-08 11:29] LABS: Glucose,Whole Blood 130 mg/dL (75-99)
[2021-08-08] MEDS: POTAS-SOD-PHOS 278-164-250 MG 1 EACH PACKET PO SCH ×3 (12:40→20:18)
--- NOTE | 2021-08-08 16:16 | P.PN ---
Subjective Progress Note Date: 08/08/21 Principal diagnosis: Abnormal chest x-ray/CAT scan. 81-year-old white female patient's with past history of breast cancer in the left breast status post radiation, patient follows with Dr. Wiley, history of diabetes mellitus, hypertension, hyperlipidemia, previous history of [place], osteoarthritis, rheumatoid arthritis. Patient also reports history of esophageal narrowing for which she required esophageal dilatation by Dr. Caceres 4 years ago. Patient presented to the emergency department on 08/05/2021 for evaluation of rectal bleeding. Patient was having some left-sided abdominal pain, as well as epigastric pain, she woke up in the middle of the night and had a large bowel movement. She had a bit of bright red blood per rectum. Reports some nausea but no vomiting. Denied any chest pain or shortness of breath. No fever or chills. No cough or phlegm production. CT of the abdomen and pelvis without contrast was completed showing left posterior lateral lung mass or consolidation with a differential including neoplasm pneumonia or atelectasis. There was also possible small nodule in the posterior lateral right lung and follow-up CT of skin of the chest was recommended, there was diverticulosis without acute diverticulitis in the sigmoid colon correlating for mild underlying colitis. Admission labs showed leukocytosis and a white count of 21 on admission, hemoglobin was 13.9, INR was 1.0, sodium is 134, the rest of electrolytes were within normal limits, BUN is 21 creatinine 0.65. Plasma lactic acid was 3.2, LFTs are within normal limits, troponin was negative at less than 0.012, stools positive for occult blood, COVID-19 testing was negative. Patient was given IV fluids, she has not required any blood transfusions. Dedicated CT chest has been obtained which was completed without contrast showing left posterior lateral lung mass or consolidation, with the possibility of metastasis, and additional workup was recommended, additional lung densities, and prior left breast lumpectomy changes. Patient reports history of smoking in the remote past, which has been in remission since 1982, patient states she used to smoke for a period of about 20 years, cigarettes and a pipe, denies any history of asthma or COPD, she is not on any inhalers, not on any home oxygen. She is breathing comfortably, room air pulse ox is 97%, afebrile, she reports intermittent dysphagia, however she has not been back to see Dr. Caceres for the last 4 years. She states occasionally she will have trouble swallowing, but for the most part she is able to get liquids and solids down without any problems. In the past patient was found to have distal esophageal stricture post balloon dilation, and LA grade B reflux esophagitis, small hiatal hernia and this was done in January 2017. Denies any significant pulmonary symptoms. She states she had a recent PET scan mammogram at one of the [place] facilities, she is not sure when exactly, she states Dr. Wiley should have all the records. on 08/07/2021 patient seen in follow-up on medical surgical floor, she is br eathing comfortably, denies any cough, or dyspnea, she is on room air pulse ox is 93-95%, signs have been stable. Denies any chest pain or hemoptysis, she states that she still having diarrhea, without blood, white blood cell count is 25.5, hemoglobin is 12, sodium is 133, potassium is 3.4, chloride is 101, CO2 is 21.4, BUN is 12.8, and creatinine 0.5. Patient is having some abdominal cramping, but abdomen soft. Reports no swallowing issues Progress note dated 08/08/2021. The patient is again seen in follow-up, on the general medical floor. The patient is seen in room 454. She denies any difficulty with breathing. She is on room air. Saturations are excellent. She denies any chest pain, or hemoptysis. I again explained to the patient that that workup for her left lung lesion, with take place as an outpatient. She will need an outpatient PET scan. She may also require a biopsy. She does have a history of breast cancer. Labs today include a white count 19.73, hemoglobin 12.3, hematocrit 37.9, and a platelet count of 166,000. Sodium 135, potassium 3.5, chlorides 99, CO2 23, anion gap 13, BUN 9.2, and creatinine 0.6. Magnesium 1.8 and phosphorus 1.5. CAT scan of the chest reveals a left posterior lateral lung mass/consolidation. Additionally, much smaller lesions are noted in the right lung. Objective - Vital Signs Vital signs: Vital Signs Temp 98.6 F 08/08/21 14:46 Pulse 67 08/08/21 14:46 Resp 16 08/08/21 14:46 BP 160/63 08/08/21 14:46 Pulse Ox 95 08/08/21 14:46 Intake & Output 08/07/21 08/08/21 08/08/21 18:59 06:59 18:59 Other: Voiding Method Toilet Toilet # Voids 4 2 # Bowel Movements 3 2 - Exam No acute distress, oriented 3. Currently on room air. Saturations 95%. HEENT examination is grossly unremarkable. Mucous membranes are moist. No oral lesions. Neck supple. Full range of motion. No adenopathy thyromegaly or neck vein distention. Cardiovascular examination reveals regular rhythm rate. S1-S2 normal. No S3 or S4. No discernible murmur noted. Heart rate 67 bpm. Lungs reveal mostly clear breath sounds. Mild scattered rhonchi are noted. No wheezes or crackles. Breath sounds are equal bilaterally. Abdomen soft bowel sounds are heard. No masses or tenderness. Extremities are intact. No cyanosis clubbing or edema. Skin is without rash or lesion. Neurologic examination is brief but nonfocal. - Labs CBC & Chem 7: 08/08/21 04:12 08/08/21 04:12 Labs: Abnormal Lab Results - Last 24 Hours (Table) 08/07/21 08/07/21 08/08/21 Range/Units 16:51 20:24 04:12 WBC 19.73 H (4.50-10.00) X 10*3/uL RDW 14.8 H (11.5-14.5) % Immature Gran # 0.20 H (0.00-0.04) X 10*3/uL Neutrophils # 15.95 H (1.80-7.70) X 10*3/uL Monocytes # 1.37 H (0.20-1.00) X 10*3/uL Glucose (70-110) mg/dL POC Glucose (mg/dL) 128 H 147 H (75-99) mg/dL Calcium (8.7-10.3) mg/dL Phosphorus (2.4-5.1) mg/dL 08/08/21 08/08/21 08/08/21 Range/Units 04:12 07:12 11:27 WBC (4.50-10.00) X 10*3/uL RDW (11.5-14.5) % Immature Gran # (0.00-0.04) X 10*3/uL Neutrophils # (1.80-7.70) X 10*3/uL Monocytes # (0.20-1.00) X 10*3/uL Glucose 128 H (70-110) mg/dL POC Glucose (mg/dL) 126 H 130 H (75-99) mg/dL Calcium 8.4 L (8.7-10.3) mg/dL Phosphorus 1.5 L (2.4-5.1) mg/dL Microbiology - Last 24 Hours (Table) 08/05/21 13:00 Blood Culture - Preliminary Blood No Growth after 72 hours Assessment and Plan Assessment: #1. Left posterior lateral lung mass or consolidation with additional lung densities, with consideration for metastasis, especially in view of patient's history of breast cancer on the left side with previous history of radiation in 2009. Patient will need outpatient workup, including a PET scan. #2. Rectal bleeding, with the possibility of colitis, possibly infectious ischemic or inflammatory, GI service is following, patient remains on antibiotics, hemoglobin is stable at 13.9. #3. History of left breast cancer with lumpectomy followed by radiation in 2009 . Patient reports recent follow-up mammogram, and PET scan that was done at an outside facility, the results of which are not available to us, patient does follow with Dr. Wiley for medical oncology. #4. Remote history of smoking, cigarettes and smoking pipe, in remission since 1982, did smoke for about 20 years before she quit. #5. Diabetes mellitus type 2. #6. Previous history of esophageal stricture requiring dilatation in January 2017. #7. History of intermittent dysphagia. #8. Hypertension. #9. Hyperlipidemia. #10. Previous history of myocardial infarction. #11. Rheumatoid arthritis . #12. Migraine headaches. Plan: Plan dated 08/08/2021. The patient is stable from the pulmonary standpoint. We will see the patient when necessary moving forth. We will set up an outpatient evaluation for this patient, and the patient will need an outpatient PET scan. The patient will possibly need bronchoscopy and biopsies. All this is explained to the patient. She does understand. The patient is stable from the pulmonary standpoint, and on room air, saturations are excellent. We'll see only as needed moving forward. Time with Patient: Less than 30
[2021-08-08 16:51] LABS: Glucose,Whole Blood 103 mg/dL (75-99)
[2021-08-08 20:26] LABS: Glucose,Whole Blood 144 mg/dL (75-99)
[2021-08-09] MEDS: SODIUM CHLORIDE 0.9% 1,000 ML IV SCH ×3 (01:30→18:21)
[2021-08-09] MEDS: metroNIDAZOLE-NS PMX 500 MG in SALINE 1 100ML.BAG IVPB SCH ×4 (06:25→23:14)
[2021-08-09 07:01] LABS: Glucose,Whole Blood 121 mg/dL (75-99)
[2021-08-09] MEDS: INSULIN ASPART (NovoLOG) 100 UNIT/ML VIAL SQ SCH ×4 (07:11→20:23)
[2021-08-09] MEDS: POTAS-SOD-PHOS 278-164-250 MG 1 EACH PACKET PO SCH ×3 (09:10→21:43)
[2021-08-09] MEDS: PANTOPRAZOLE 40 MG/10 ML VIAL IV SCH ×2 (09:10→21:42)
[2021-08-09] MEDS: atenoloL 25 MG TAB PO SCH ×2 (09:10→21:42)
[2021-08-09 11:45] LABS: Glucose,Whole Blood 215 mg/dL (75-99)
--- NOTE | 2021-08-09 12:16 | P.PN ---
Subjective Progress Note Date: 08/09/21 Principal diagnosis: rectal bleeding Patient feeling distended after she ate regular food yesterday. She is still weak and requires assistance with getting up. She does not think she can go home and function by herself. Objective - Vital Signs Vital signs: Vital Signs Temp 98.0 F 08/09/21 09:04 Pulse 69 08/09/21 09:04 Resp 16 08/09/21 09:04 BP 152/83 08/09/21 09:04 Pulse Ox 95 08/09/21 09:04 Intake & Output 08/08/21 08/09/21 08/09/21 18:59 06:59 18:59 Intake Total 1080 Balance 1080 Intake: Oral 1080 Other: Voiding Method Toilet # Voids 3 1 # Bowel Movements 1 - Exam Constitutional: No acute distress, conversant, pleasant Eyes:Anicteric sclerae, moist conjunctiva, no lid-lag, PERRLA, ENMT: Oropharynx clear, no erythema, exudates Neck: Supple, FROM, no masses, or JVD, No carotid bruits, No thyromegaly Lungs: Clear to auscultation, Clear to percussion, Normal respiratory effort, no accessory muscle use Cardiovascular: Heart regular in rate and rhythm, No murmurs, gallops, or rubs, No peripheral edema Abdominal: Left-sided tenderness. No guarding, rebound or rigidity, Normoactive bowel sounds, No hepatomegaly, No splenomegaly, No palpable mass Skin: Normal temperature, tone, texture, turgor, no induration, No subcutaneous nodules, No rash, lesions, No ulcers Extremities: No digital cyanosis, No clubbing, Pedal pulses intact and symmetrical, Radial pulses intact and symmetrical, No calf tenderness Psychiatric: Alert and oriented to person, place and time, appropriate affect, intact judgement Neuro: Muscles Strength 5/5 in all 4 extremities, Sensation to light touch grossly present throughout, Cranial nerves II-XII grossly intact, no focal sensory deficits - Labs CBC & Chem 7: 08/08/21 04:12 08/08/21 04:12 Labs: Abnormal Lab Results - Last 24 Hours (Table) 08/08/21 08/08/21 08/09/21 Range/Units 16:49 20:25 07:00 POC Glucose (mg/dL) 103 H 144 H 121 H (75-99) mg/dL 08/09/21 Range/Units 11:43 POC Glucose (mg/dL) 215 H (75-99) mg/dL Microbiology - Last 24 Hours (Table) 08/05/21 13:00 Blood Culture - Preliminary Blood No Growth after 72 hours Assessment and Plan Plan: Acute diverticulitis with diverticular bleed, rule out ischemic colitis, rule out infectious colitis Stool C. diff--negative Continue ceftriaxone and Flagyl Morphine as needed for pain GI following D/C IV fluids Hemoglobin stable Advanced diet Lung mass Seen on chest CT, could be secondary to pneumonia versus tumor Seen by pulmonary, will need to follow up outpatient, patient was made aware Hypertension Resume atenolol Diabetes type 2, diet-controlled A1c 6.3 Sliding scale insulin General weakness Seen by PT, patient is interested in going to rehab. Anticipated disposition: [facility] tomorrow
[2021-08-09 16:42] LABS: Glucose,Whole Blood 100 mg/dL (75-99)
[2021-08-09 20:18] LABS: Glucose,Whole Blood 161 mg/dL (75-99)
[2021-08-10] MEDS: SODIUM CHLORIDE 0.9% 1,000 ML IV SCH ×3 (04:09→23:08)
[2021-08-10] MEDS: metroNIDAZOLE-NS PMX 500 MG in SALINE 1 100ML.BAG IVPB SCH ×4 (05:27→23:08)
[2021-08-10 06:57] LABS: Glucose,Whole Blood 116 mg/dL (75-99)
[2021-08-10] MEDS: INSULIN ASPART (NovoLOG) 100 UNIT/ML VIAL SQ SCH ×4 (09:04→20:20)
[2021-08-10] MEDS: POTAS-SOD-PHOS 278-164-250 MG 1 EACH PACKET PO SCH ×3 (09:08→20:20)
[2021-08-10] MEDS: atenoloL 25 MG TAB PO SCH ×2 (09:08→20:20)
[2021-08-10] MEDS: PANTOPRAZOLE 40 MG/10 ML VIAL IV SCH ×2 (09:08→20:19)
[2021-08-10 11:43] LABS: Glucose,Whole Blood 196 mg/dL (75-99)
--- NOTE | 2021-08-10 12:37 | P.PN ---
Subjective Progress Note Date: 08/10/21 Principal diagnosis: Abdominal pain, GI bleed 81-year-old female who presented to the emergency department with complaints of abdominal pain and bright red blood per rectum. She had a CT of the abdomen that showed mild diverticulosis without acute diverticulitis of the sigmoid colon, mild wall thickening correlate for underlying mild colitis. Pulmonary was consulted for abnormal findings on CT chest. Patient will follow up outpatient. She states that she is still having loose stool with some mucus up to 4 times a day no blood. She does get some left lower quadrant cramping at times. She has been afebrile. Her last WBC on 08/08/2021 was 19.7 hemoglobin 12.3. She remains afebrile. And states she's had a good appetite. Objective - Vital Signs Vital signs: Vital Signs Temp 97.9 F 08/10/21 08:00 Pulse 64 08/10/21 08:00 Resp 18 08/10/21 08:00 BP 184/76 08/10/21 08:00 Pulse Ox 92 L 08/10/21 08:00 Intake & Output 08/09/21 08/10/21 08/10/21 18:59 06:59 18:59 Intake Total 1080 Balance 1080 Intake: Oral 1080 Other: Voiding Method Toilet # Voids 3 2 # Bowel Movements 1 - Exam General appearance: The patient is alert, oriented, appears in no acute distress. HET: Head is normocephalic and atraumatic. Conjunctiva pink. Sclera anicteric. Neck: Supple without lymphadenopathy. Abdomen: Soft, left lower quadrant tenderness, nondistended with bowel sounds. No guarding or rigidity. Extremities: Normal skin color and turgor. No pedal edema Skin: No rashes, no jaundice Neurological: No focal deficits. Alert and oriented -3. - Labs CBC & Chem 7: 08/08/21 04:12 08/08/21 04:12 Labs: Abnormal Lab Results - Last 24 Hours (Table) 08/09/21 08/09/21 08/09/21 Range/Units 11:43 16:38 20:16 POC Glucose (mg/dL) 215 H 100 H 161 H (75-99) mg/dL 08/10/21 Range/Units 06:55 POC Glucose (mg/dL) 116 H (75-99) mg/dL Microbiology - Last 24 Hours (Table) 08/05/21 13:00 Blood Culture - Preliminary Blood No Growth after 96 hours Assessment and Plan (1) Rectal bleeding Narrative/Plan: 81-year-old female who presented to the emergency department with complaints of lower abdominal cramping followed by several episodes of rectal bleeding. Patient states she had several episodes of loose stool mixed with bright red blood and clots. Symptoms began yesterday. No previous history of GI bleed. She states that she is had no sick contacts, no fever or chills. She did have some nausea but no vomiting. She denies any anticoagulation. She did present with leukocytosis with a WBC of 24.8 with a stable hemoglobin at 14. Patient had a CT of the abdomen and pelvis showing diverticulosis without any evidence of diverticulitis with mild wall thickening correlate for possible mild colitis. CT of abdomen and pelvis also showed concerning area of a left posterior lateral lung mass or consolidation. Patient then had a CT of the left chest showing left posterior lateral lung mass or consolidation. Metastasis should be considered. states abdominal cramping and bleeding has improved today. Repeat hemoglobin stable and 13.9 WBC 26. She's been afebrile. She was started on Rocephin and Flagyl. Likely etiology is colitis, likely infectious or ischemic in etiology. C. diff negative. On Rocephin and Flagyl. Patient's not had any further rectal bleeding. Still having 3-4 loose mucousy stools per day. Abdominal pain improved.. Current Visit: Yes Status: Acute Code(s): K62.5 - HEMORRHAGE OF ANUS AND REC YI SNOMED Code(s): 46866822 (2) Abdominal pain Current Visit: Yes Status: Acute Code(s): R10.9 - UNSPECIFIED ABDOMINAL PAIN SNOMED Code(s): 15057682 (3) Leukocytosis Current Visit: Yes Status: Acute Code(s): D72.829 - ELEVATED WHITE BLOOD CELL COUNT, UNSPECIFIED SNOMED Code(s): 222645800 Plan: 1. Continue symptomatic and supportive care 2. Continue diet as tolerated 4. C. diff and stool cultures ordered 5. Patient is the cleared from gastroenterology for discharge Thank you for this consultation, we will continue to follow. Dr. Joe Caceres I agree with the dictator's note, documented as a scribe by Romy Smith
[2021-08-10 16:30] LABS: Glucose,Whole Blood 188 mg/dL (75-99)
--- NOTE | 2021-08-10 17:38 | P.PN ---
Subjective Progress Note Date: 08/10/21 Principal diagnosis: Diverticulitis Patient was examined and presented in accompanying the recent symptomatology. Blood pressure continues to be elevated mostly secondary to pain currently rating it 8 and 10. Patient's diet has been advanced to a continue to monitor. Objective - Vital Signs Vital signs: Vital Signs Temp 98.0 F 08/10/21 14:00 Pulse 66 08/10/21 14:00 Resp 18 08/10/21 14:00 BP 139/61 08/10/21 14:00 Pulse Ox 96 08/10/21 14:00 Intake & Output 08/09/21 08/10/21 08/10/21 18:59 06:59 18:59 Intake Total 1080 200 Balance 1080 200 Intake: Intake, IV Titration 200 Amount metroNIDAZOLE-NS PMX 500 200 mg In Saline 1 100ml.bag @ 100 mls/hr IVPB Q6H [facility] Rx#:[id number] Oral 1080 Other: Voiding Method Toilet Toilet # Voids 3 2 # Bowel Movements 1 - Exam Constitutional: No acute distress, conversant, pleasant Eyes:Anicteric sclerae, moist conjunctiva, no lid-lag, PERRLA, ENMT: Oropharynx clear, no erythema, exudates Neck: Supple, FROM, no masses, or JVD, No carotid bruits, No thyromegaly Lungs: Clear to auscultation, Clear to percussion, Normal respiratory effort, no accessory muscle use Cardiovascular: Heart regular in rate and rhythm, No murmurs, gallops, or rubs, No peripheral edema Abdominal: Mild abdominal discomfort on palpation. Skin: Normal temperature, tone, texture, turgor, no induration, No subcutaneous nodules, No rash, lesions, No ulcers Extremities: No digital cyanosis, No clubbing, Pedal pulses intact and symmetrical, Radial pulses intact and symmetrical, No calf tenderness - Labs CBC & Chem 7: 08/08/21 04:12 08/08/21 04:12 Labs: Abnormal Lab Results - Last 24 Hours (Table) 08/09/21 08/10/21 08/10/21 Range/Units 20:16 06:55 11:42 POC Glucose (mg/dL) 161 H 116 H 196 H (75-99) mg/dL 08/10/21 Range/Units 16:29 POC Glucose (mg/dL) 188 H (75-99) mg/dL Microbiology - Last 24 Hours (Table) 08/05/21 13:00 Blood Culture - Preliminary Blood No Growth after 120 hours Assessment and Plan Plan: Assessment: #1 acute diverticulitis #[address] on CT #3 essential hypertension #4 diabetes mellitus #5 generalized weakness Plan: -Aspiration/percussion -Continue with antimicrobials -GI on board -When necessary pain medication -Patient will need further workup regarding lung mass patient is cleared by pulmonology team. -PT/OT -Disposition anticipate discharge in the next 24 hours will require subacute rehab on discharge.
[2021-08-10 20:16] LABS: Glucose,Whole Blood 120 mg/dL (75-99)
[2021-08-11] MEDS: SODIUM CHLORIDE 0.9% 1,000 ML IV SCH ×3 (03:49→14:15)
[2021-08-11] MEDS: metroNIDAZOLE-NS PMX 500 MG in SALINE 1 100ML.BAG IVPB SCH ×2 (05:27→11:34)
[2021-08-11 07:27] LABS: Glucose,Whole Blood 121 mg/dL (75-99)
[2021-08-11] MEDS: INSULIN ASPART (NovoLOG) 100 UNIT/ML VIAL SQ SCH ×2 (07:30→12:17)
[2021-08-11] MEDS: atenoloL 25 MG TAB PO SCH (08:59)
[2021-08-11] MEDS: PANTOPRAZOLE 40 MG/10 ML VIAL IV SCH (08:59)
[2021-08-11] MEDS: POTAS-SOD-PHOS 278-164-250 MG 1 EACH PACKET PO SCH (08:59)
--- NOTE | 2021-08-11 09:43 | P.PN ---
Subjective Progress Note Date: 08/11/21 Principal diagnosis: Abdominal pain, GI bleed 81-year-old female who presented to the emergency department with complaints of abdominal pain and bright red blood per rectum. She had a CT of the abdomen that showed mild diverticulosis without acute diverticulitis of the sigmoid colon, mild wall thickening correlate for underlying mild colitis. Pulmonary was consulted for abnormal findings on CT chest. Patient will follow up outpatient. She is feeling much better today. Having formed stools. Only one bowel movement this morning. No blood. Abdominal pain improved. No nausea or vomiting. Tolerating her diet. Objective - Vital Signs Vital signs: Vital Signs Temp 98 F 08/11/21 08:05 Pulse 67 08/11/21 08:05 Resp 17 08/11/21 08:05 BP 170/90 08/11/21 08:05 Pulse Ox 93 L 08/11/21 08:05 Intake & Output 08/10/21 08/11/21 08/11/21 18:59 06:59 18:59 Intake Total 200 950 Balance 200 950 Intake: Intake, IV Titration 200 950 Amount Sodium Chloride 0.9% 1, 750 000 ml @ 130 mls/hr IV . Q7H42M [facility] Rx#:[id number] metroNIDAZOLE-NS PMX 500 200 200 mg In Saline 1 100ml.bag @ 100 mls/hr IVPB Q6H [facility] Rx#:[id number] Other: Voiding Method Toilet # Voids 2 # Bowel Movements 2 - Exam General appearance: The patient is alert, oriented, appears in no acute distress. HET: Head is normocephalic and atraumatic. Conjunctiva pink. Sclera anicteric. Neck: Supple without lymphadenopathy. Abdomen: Soft, nontender, nondistended with bowel sounds. No guarding or rigidity. Extremities: Normal skin color and turgor. No pedal edema Skin: No rashes, no jaundice Neurological: No focal deficits. Alert and oriented -3. - Labs CBC & Chem 7: 08/08/21 04:12 08/08/21 04:12 Labs: Abnormal Lab Results - Last 24 Hours (Table) 08/10/21 08/10/21 08/10/21 Range/Units 11:42 16:29 20:14 POC Glucose (mg/dL) 196 H 188 H 120 H (75-99) mg/dL 08/11/21 Range/Units 07:15 POC Glucose (mg/dL) 121 H (75-99) mg/dL Microbiology - Last 24 Hours (Table) 08/05/21 13:00 Blood Culture - Preliminary Blood No Growth after 120 hours Assessment and Plan (1) Rectal bleeding Narrative/Plan: 81-year-old female who presented to the emergency department with complaints of lower abdominal cramping followed by several episodes of rectal bleeding. Patient states she had several episodes of loose stool mixed with bright red blood and clots. Symptoms began yesterday. No previous history of GI bleed. She states that she is had no sick contacts, no fever or chills. She did have some nausea but no vomiting. She denies any anticoagulation. She did present with leukocytosis with a WBC of 24.8 with a stable hemoglobin at 14. Patient had a CT of the abdomen and pelvis showing diverticulosis without any evidence of diverticulitis with mild wall thickening correlate for possible mild colitis. CT of abdomen and pelvis also showed concerning area of a left posterior lateral lung mass or consolidation. Patient then had a CT of the left chest showing left posterior lateral lung mass or consolidation. Metastasis should be considered. states abdominal cramping and bleeding has improved today. Repeat hemoglobin stable and 13.9 WBC 26. She's been afebrile. She was started on Rocephin and Flagyl. Likely etiology is colitis, likely infectious or ischemic in etiology. C. diff negative. On Rocephin and Flagyl. Patient's not had any further rectal bleeding. Still having 3-4 loose mucousy stools per day. Abdominal pain improved.. Current Visit: Yes Status: Acute Code(s): K62.5 - HEMORRHAGE OF ANUS AND RECTUM SNOMED Code(s): 33339906 (2) Abdominal pain Current Visit: Yes Status: Acute Code(s): R10.9 - UNSPECIFIED ABDOMINAL PAIN SNOMED Code(s): 37046692 (3) Leukocytosis Current Visit: Yes Status: Acute Code(s): D72.829 - ELEVATED WHITE BLOOD CELL COUNT, UNSPECIFIED SNOMED Code(s): 228199674 Plan: 1. Continue symptomatic and supportive care 2. Continue diet as tolerated 4. Recommend follow-up with gastroenterology for outpatient colonoscopy in 6-8 weeks 5. Patient is the cleared from gastroenterology for discharge Thank you for this consultation, we will continue to follow. Dr. Joe Caceres I agree with the dictator's note, documented as a scribe by Romy Ramsay.
[2021-08-11 10:53] LABS: African American GFR (CKD) >90 (>60 ml/min/1.73 sqM); Anion Gap 8 mmol/L; Blood Urea Nitrogen 7 mg/dL (7-17); Calcium 8.2 mg/dL (8.4-10.2); Carbon Dioxide 25 mmol/L (22-30); Chloride 99 mmol/L (98-107); Glucose 154 mg/dL (74-99); Non-African American GFR(CKD) 85 (>60 ml/min/1.73 sqM); Potassium 3.3 mmol/L (3.5-5.1); Sodium 132 mmol/L (137-145)
[2021-08-11 11:18] VITALS: BMI 39.0
[2021-08-11] MEDS ORDERED: POTASSIUM CHLORIDE ER 20 MEQ TAB.ER PO STA (11:43)
[2021-08-11] MEDS ORDERED: LOSARTAN 25 MG TAB PO SCH (11:45)
[2021-08-11 12:02] LABS: Glucose,Whole Blood 111 mg/dL (75-99)
[2021-08-11 12:13] LABS: Basophils % (A) 1 %; Eosinophils % (A) 2 %; HCT 38.3 % (34.0-46.0); HGB 12.4 gm/dL (11.4-16.0); Lymphocytes % (A) 16 %; MCH 29.4 pg (25.0-35.0); MCHC 32.3 g/dL (31.0-37.0); Mean Platelet Volume 8.5; Monocytes % (A) 9 %; Neutrophils % (A) 70 %; Platelet Count 177 k/uL (150-450); RBC 4.21 m/uL (3.80-5.40); RDW 14.5 % (11.5-15.5); WBC 11.3 k/uL (3.8-10.6)
[2021-08-11 12:14] LABS: Basophils # (A) 0.1 k/uL (0-0.2); Eosinophils # (A) 0.2 k/uL (0-0.7); Lymphocytes # (A) 1.9 k/uL (1.0-4.8); Neutrophils # (A) 7.9 k/uL (1.3-7.7)
--- NOTE | 2021-08-11 14:29 | P.DS ---
Providers Date of admission: 08/05/21 13:27 Expected date of discharge: 08/11/21 Attending physician: Lino Gusman MD Consults: 08/05/21 13:47 Consult Physician Routine Consulting Provider: Clara Caceres Consult Reason/Comments: GI bleed Do you want consulting provider notified?: Yes 08/06/21 08:56 Consult Physician Routine Consulting Provider: Nikita Vicente Consult Reason/Comments: lung mass Do you want consulting provider notified?: Yes Primary care physician: Evon Card MD Hospital Course: 81-year-old female who presents to the emergency department today complaining of rectal bleeding. Patient says she woke about 3 AM and had a large bowel movement. Patient then went back to bed and woke up a few hours later with left-sided abdominal pain as well as epigastric pain. Patient states the pain does radiate to her back in between her shoulder blades. Then she had bright red blood per rectum. Patient had some nausea but no vomiting. No chest pain or shortness of breath. Patient has no history of gastrointestinal bleeding. She does have a history of a hiatal hernia. Not anticoagulated. Last colonoscopy was 8 years ago and was ok. No fevers but had sweats. No hematuria. No urinary symptoms. In the ER all labs were ok. Vitals ok. CT abdomen and pelvis showed diverticulosis without diverticulitis, mild wall thickening not excluded, nonobstructing right renal stone, also showed possible small nodule in the posterior right lateral wall as well as left posterior lateral lung mass or consolidation. Differential diagnosis includes pneumonia, neoplasm or atelectasis. Patient was evaluated by gastrology team at the recommending Cipro Floxin and Flagyl to be discharged to complete 3 more days. Blood pressure continues to be elevated in the 170s for the patient on low-dose losartan 25 mg. BMP and CBC was reviewed today currently within normal limits. She is also to follow with pulmonary and get a PET scan Outpatient. For this on the patient's discharge from all consultants will be discharged to subacute rehab. She is also follow- up with pulmonary, gastrology and her PCP. Plan - Discharge Summary Discharge Rx Participant: No New Discharge Prescriptions: New Losartan [Cozaar] 25 mg PO DAILY #0 tab Ciprofloxacin/Ciprofloxa HCl [Ciprofloxacin ER] 500 mg PO Q24HR 3 Days #3 tab metroNIDAZOLE [Flagyl] 500 mg PO TID 3 Days #9 tab No Action Cholecalciferol [Vitamin D3 (25 Mcg = 1000 Iu)] 25 mcg PO DAILY [place]-3 Fatty Acids/Fish Oil [Fish Oil 1,000 mg Softgel] 1 cap PO DAILY Docusate [Colace] 100 mg PO BID Garlique 1 cap PO DAILY Aspirin [Adult Low Dose Aspirin EC] 81 mg PO DAILY atenoloL 25 mg PO BID Aspirin/Calcium Carbonate/Mag [Buffered Aspirin 325 mg Tb] 650 mg PO DAILY PRN PRN Reason: Migraine Headache Red Yeast Rice 600 mg PO DAILY Vit C/Ascorb Sod/Multivit-Min [Emergen-C 500 mg Chewable Tab] 1,000 mg PO DAILY Vit C/E/Zn/Coppr/Lutein/Zeaxan [Preservision Areds 2 Softgel] 1 cap PO BID Vitamin B Complex 1 cap PO DAILY Discharge Medication List Cholecalciferol [Vitamin D3 (25 Mcg = 1000 Iu)] 25 mcg PO DAILY 10/08/15 [History] [place]-3 Fatty Acids/Fish Oil [Fish Oil 1,000 mg Softgel] 1 cap PO DAILY 10/08/15 [History] Docusate [Colace] 100 mg PO BID 01/28/17 [History] Aspirin/Calcium Carbonate/Mag [Buffered Aspirin 325 mg Tb] 650 mg PO DAILY PRN 12/31/20 [History] atenoloL 25 mg PO BID 12/31/20 [History] Aspirin [Adult Low Dose Aspirin EC] 81 mg PO DAILY 08/05/21 [History] Garlique 1 cap PO DAILY 08/05/21 [History] Red Yeast Rice 600 mg PO DAILY 08/05/21 [History] Vit C/Ascorb Sod/Multivit-Min [Emergen-C 500 mg Chewable Tab] 1,000 mg PO DAILY 08/05/21 [History] Vit C/E/Zn/Coppr/Lutein/Zeaxan [Preservision Areds 2 Softgel] 1 cap PO BID 08/05/21 [History] Vitamin B Complex 1 cap PO DAILY 08/05/21 [History] Ciprofloxacin/Ciprofloxa HCl [Ciprofloxacin ER] 500 mg PO Q24HR 3 Days #3 tab 08/11/21 [Rx] Losartan [Cozaar] 25 mg PO DAILY #0 tab 08/11/21 [Rx] metroNIDAZOLE [Flagyl] 500 mg PO TID 3 Days #9 tab 08/11/21 [Rx] Follow up Appointment(s)/Referral(s): Clara Caceres MD [STAFF PHYSICIAN] - 09/22/21 3:00 pm Nikita Vicente DO [Doctor of Osteopathic Medicine] - 08/26/21 3:45 pm Evon Card MD [Primary Care Provider] - 08/18/21 3:00 pm Discharge Disposition: TRANSFER TO SNF/ECF
[2021-08-11 14:54] VITALS: BP 169/80; PULSE 61; RESP 16; TEMP 97.8
--- NOTE | 2021-08-14 08:54 | CDI ---
Documentation Clarification Form Date: 08/14/2021 08:38:21 AM From: Eber Lindsey Admit Date: 08/05/2021 01:27:00 PM Patient Name: Queenie Avila Visit Number: [id number] Discharge Date: 08/11/2021 03:48:00 PM ATTENTION: The Clinical Documentation Specialists (CDI) and [facility] Coding Staff appreciate your assistance in clarifying documentation. Please respond to the clarification below the line at the bottom and electronically sign. The CDI & [facility] Coding staff will review the response and follow-up if needed. Please note: Queries are made part of the Legal Health Record. If you have any questions, please contact the author of this message via ITS. Dr. Jn Owens Differential diagnojsis of pneumonia is documented in the discharge summary which may lack sufficient clinical evidence/support in the medical record. Additional clarification is requested. This is the only SNF and would affect the DRG. GI consult 08/06: she was started on rocephin and flagyl. Likely etiology is colitis, possibly infectious, ischemic or inflammatory. History/Risk Factors: discharge summary: differential dx is pneumonia, neoplasm or atelectasis Clinical Indicators: CXR 08/05: lungs clear. No acute pulmonary process. WBC 21.0 at admission. Treatment: IV ceftriaxone Please clarify if pneumonia is a valid diagnosis? [ ] Yes, pneumonia] is present as evidence by (additional clinical support): [ ] No, pneumonia is ruled out [ ] Other (please specify diagnosis) [ ] Unable to determine MTDD
--- NOTE | 2021-08-14 11:58 | CDI ---
Documentation Clarification Form Date: 08/14/2021 11:43:23 AM From: Eber Lindsey Admit Date: 08/05/2021 01:27:00 PM Patient Name: Queenie Avila Visit Number: [id number] Discharge Date: 08/11/2021 03:48:00 PM ATTENTION: The Clinical Documentation Specialists (CDI) and [facility] Coding Staff appreciate your assistance in clarifying documentation. Please respond to the clarification below the line at the bottom and electronically sign. The CDI & [facility] Coding staff will review the response and follow-up if needed. Please note: Queries are made part of the Legal Health Record. If you have any questions, please contact the author of this message via ITS. Dr. Jn Owens Pneumonia is documented as a differential diagnosis in the discharge summary which may lack sufficient clinical evidence/support in the medical record. Additional clarification is requested. Per GI consult 08/06: she was started on rocephin and fladyl. Likely etiology is colitis, possibly infectious, ischemic or inflammatory. History/Risk Factors: discharge summary: differential dx is pneumonia, neoplasm or atelectasis. Clinical Indicators: CXR 08/05: lungs clear. No acute pulmonary process. WBC 21.0 on admission. Treatment: IV Ceftriaxone Please clarify if pneumonia is a valid diagnosis? [ ] Yes, pneumonia is present as evidence by (additional clinical support): [ 1 ] No, pneumonia is ruled out [ ] Other (please specify diagnosis) [ ] Unable to determine MTDD
--- NOTE | 2021-08-26 10:33 | CDI ---
Documentation Clarification Form Date: 08/26/2021 10:22:03 AM From: Eber Lindsey Admit Date: 08/05/2021 01:27:00 PM Patient Name: Queenie Avila Visit Number: [id number] Discharge Date: 08/11/2021 03:48:00 PM ATTENTION: The Clinical Documentation Specialists (CDI) and [facility] Coding Staff appreciate your assistance in clarifying documentation. Please respond to the clarification below the line at the bottom and electronically sign. The CDI & [facility] Coding staff will review the response and follow-up if needed. Please note: Queries are made part of the Legal Health Record. If you have any questions, please contact the author of this message via ITS. Dr. Jn Owens Pneumonia is documented as a differential diagnosis in your discharge summary which may lack sufficient clinical evidence/support in the medical record. Additional clarification is requested. Per GI consult 08/06: she was started on rocephin and flagyl. Likely etiology is colitis, possibley infectious, ischemic or inflammatory. You signed the last query but left it blank. History/Risk Factors: discharge summary: differential dx is pneumonia, neoplasm or atelectasis Clinical Indicators: CXR 08/05: lungs clear. No acute pulmonary process. WBC 21.0 on admission. Treatment: IV cetriaxone Please clarify if pneumonia is a valid diagnosis? [ ] Yes, pneumonia is present as evidence by (additional clinical support): [ ] No, pneumonia is ruled out [ ] Other (please specify diagnosis) [ ] Unable to determine MTDD
== END 2021-08-11 15:48 | DRG 391 ==
LOC: EC 11:14 → 4SSUR 13:27
PROVIDERS: ADMIT Internal Medicine; ATTEND Internal Medicine
DX: A09 Infectious gastroenteritis and colitis, unspecified (principal); K57.91 Diverticulosis of intestine, part unspecified, without perforation or abscess with bleeding; E11.9 Type 2 diabetes mellitus without complications; E78.5 Hyperlipidemia, unspecified; F32.A Depression, unspecified; F41.9 Anxiety disorder, unspecified; G43.909 Migraine, unspecified, not intractable, without status migrainosus; I10 Essential (primary) hypertension; I25.2 Old myocardial infarction; K29.70 Gastritis, unspecified, without bleeding; M06.9 Rheumatoid arthritis, unspecified; N20.0 Calculus of kidney; R13.10 Dysphagia, unspecified; T39.395A Adverse effect of other nonsteroidal anti-inflammatory drugs [NSAID], initial encounter; Z20.822 Contact with and (suspected) exposure to COVID-19; D49.1 Neoplasm of unspecified behavior of respiratory system; Z96.642 Presence of left artificial hip joint; Z79.82 Long term (current) use of aspirin; Z79.899 Other long term (current) drug therapy; Z85.3 Personal history of malignant neoplasm of breast; Z87.891 Personal history of nicotine dependence; Z90.710 Acquired absence of both cervix and uterus; Z92.3 Personal history of irradiation; Z88.0 Allergy status to penicillin; Z88.8 Allergy status to other drugs, medicaments and biological substances; Z88.6 Allergy status to analgesic agent; Z91.040 Latex allergy status; R53.1 Weakness
CPT/HCPCS: 36415; 71045; 71250; 74176; 80048; 80053; 82272; 83036; 83605; 83690; 83735; 84100; 84484; 85025; 85027; 85610; 85730; 86850; 86900; 86901; 87040; 87324; 87635; 93005; 96361; 96374; 96375; 99285

== ENCOUNTER → 2021-09-11 | Outpatient (CLI) | payer MEDICARE, BC ==
--- NOTE | 2021-09-14 10:18 | PE ---
EXAMINATION TYPE: PET CT fusion skull to thigh DATE OF EXAM: 09/11/2021 COMPARISON: CT chest August 05, 2021. CT abdomen and pelvis August 05, 2021. HISTORY: Solitary pulmonary nodule, abnormal CT. TECHNIQUE: Following the intravenous administration of 13.9 mCi of F-18 FDG, whole body images are p erformed from the skull base to the midthigh. Images are reviewed on the computer in the coronal, ax ial, and sagittal planes. Reconstructed rotating images are created on independent workstation and r eviewed on the computer. A localization and attenuation correction CT is performed in conjunction w ith the PET scan. Blood glucose level equals 108 SCAN: Initial Scan FINDINGS: SKULL BASE AND NECK: No areas of abnormal hypermetabolic uptake. CHEST, MEDIASTINUM, AND HILAR REGION: Background mild underlying emphysematous change. Redemonstratio n of approximately 1.3 cm faint area of groundglass opacity anterior right midlung axial image 93 is a metabolic. A few scattered small nodules redemonstrated for reference there is 7 mm subpleural righ t lower lobe nodule axial image 96 is ametabolic. Persistent posterior left basilar masslike consolid ation measures 3.9 x 2.0 cm has mild hypermetabolic uptake, max SUV is 3.69. No additional areas of abnormal hypermetabolic uptake. No hypermetabolic thoracic lymph nodes identif ied. ABDOMEN AND PELVIS: No adrenal masses. Normal excretion. No areas of abnormal hypermetabolic uptake. OSSEOUS STRUCTURES: No areas of abnormal hypermetabolic uptake. OTHER CT: Surgical changes to the left breast with lumpectomy changes and nonspecific 2.7 cm thin-wal led fluid collection with surrounding surgical clips presumed postsurgical seroma. Mild atherosclerotic change in ectatic abdominal aorta. Sigmoid colonic diverticula. Metallic Bilateral arthroplasty causes streak artifact limiting evaluation of pelvic structures. Multilevel sp urring in the spine. IMPRESSION: Persistent masslike consolidation posterior left lung base has mild abnormal hypermetabol ic uptake, malignancy at this level cannot be excluded. No additional areas of abnormal hypermetaboli c uptake to suggest adenopathy or metastatic disease noted.
== END | disposition home or self-care (01) ==
LOC: RADPETMAIN 14:30
PROVIDERS: ATTEND Nurse Practitioner Adult Health
DX: R91.1 Solitary pulmonary nodule (principal)
CPT/HCPCS: 78815; A9552

== ENCOUNTER 2021-09-18 10:46 | Day surgery (SDC) | payer MEDICARE, BC ==
[2021-09-17 09:32] VITALS: BMI 34.7
[~2021-09-18 10:46] MED LIST changes: +ALBUTEROL NEB (CONC) 2.5 MG/0.5 ML INHALATION ONE; +ATROPINE SULFATE 0.4 MG/ML 1 ML VIAL IM ONE; -HYDROmorphone 0.5 MG/0.5 ML SYRINGE IVP PRN; +LACTATED RINGERS 1,000 ML IV SCH; +LIDOCAINE 2% (PF) 20 MG/ML 5 ML VIAL INHALATION ONE; +LIDOCAINE VISCOUS 300 MG/15 ML CUP MUCOUS MEM ONE; -ONDANSETRON 4 MG/2 ML VIAL IVP ONE; -ROPIVACAINE 246.25 MG, EPINEPHrine 0.5 MG, cloNIDine HCL/PF 80 MCG, WATER FOR INJECTION... MISCELLANE PRN; +SODIUM CHLORIDE 0.9% 1,000 ML IV SCH
[2021-09-18 11:13] VITALS: RESP 16
[2021-09-18 11:37] LABS: Glucose,Whole Blood 123 mg/dL (75-99)
[2021-09-18] MEDS ORDERED: fentaNYL (PF) 50 MCG/ML 2 ML AMP ONE (12:15)
[2021-09-18] MEDS ORDERED: PROPOFOL 10 MG/ML 20 ML VIAL IV ONE (12:15)
[2021-09-18] MEDS ORDERED: LIDOCAINE 1% INJ 10MG/ML (20 ML MDV) ONE (12:15)
[2021-09-18] MEDS ORDERED: GLYCOPYRROLATE 0.2 MG/ML 2 ML VIAL ONE (12:15)
[2021-09-18] MEDS ORDERED: ePHEDrine 50 MG/ML 1 ML VIAL ONE (12:15)
[2021-09-18] MEDS ORDERED: SUCCINYLCHOLINE CHLORIDE 100 MG/5 ML SYR IV ONE (12:15)
--- NOTE | 2021-09-18 13:20 | CT ---
EXAMINATION TYPE: CT Chest adam Donnelly Protocol DATE OF EXAM: 09/18/2021 COMPARISON: 08/05/2021 HISTORY: Bronchial navigation. CT DLP: 834 mGycm Automated exposure control for dose reduction was used. FINDINGS: There has been no interval change in the 15 mm area of groundglass density in the right middle lobe o r in the 9.2 mm groundglass nodule in the right lower lobe. There is been no interval change in the partially consolidative density in the left lung base. No brittany nge in a few scattered tiny 1 to 2 mm nodules bilaterally. There is no pleural effusion or pneumothorax the great vessels the chest are normal and there is no m ediastinal, hilar or axillary adenopathy. Limited scanning through the upper abdomen reveals no significant abnormality. IMPRESSION: NO CHANGE IN THE GROUNDGLASS DENSITY AND GROUNDGLASS NODULE IN THE RIGHT LUNG AND NO CHANGE IN THE PA RTIALLY CONSOLIDATIVE ILL-DEFINED DENSITY IN THE LEFT LOWER LOBE. THE FINDINGS REMAIN SUSPICIOUS FOR NEOPLASM AND BIOPSY OR SHORT-TERM FOLLOW-UP IS RECOMMENDED.
[2021-09-18 13:32] VITALS: TEMP 98
--- NOTE | 2021-09-18 14:03 | XR ---
EXAMINATION TYPE: XR chest 1V portable DATE OF EXAM: 09/18/2021 COMPARISON: 08/05/2021 HISTORY: Post bronchoscopy. TECHNIQUE: Single frontal view of the chest is obtained. FINDINGS: Atherosclerotic change aorta. Heart size normal. Hypertrophic and degenerative change of t he spine. Subsegmental consolidation left lower lobe. Vague groundglass nodule seen by CT scan are no t as well appreciated by x-ray. Biapical pleural thickening with no sizable pneumothorax. IMPRESSION: No pneumothorax post bronchoscopy. Left lower lobe subsegmental consolidation noted.
[2021-09-18 14:10] VITALS: BP 145/64; PULSE 54
--- NOTE | 2021-09-18 14:12 | PCN ---
PROCEDURE NOTE PROCEDURE: Navigational bronchoscopy. PREOPERATIVE DIAGNOSIS: Left lower lobe pulmonary nodule. Rule out lung cancer. POSTOPERATIVE DIAGNOSIS: Left lower lobe pulmonary nodule. Rule out lung cancer. OPERATORS: 1. Dr. Vicente. 2. Dr. Rausch. PROCEDURE DESCRIPTION: There was informed consent and universal timeout. The patient's procedure took place in the [facility] [place] room #1. Dr. Ken and ORDNANCE KEEPER provided general anesthesia. After the patient was adequately sedated and anesthetized and being fully monitored, the bronchoscope was inserted through the bronchoscope adapter connected to the endotracheal tube. We used the [employer] navigational system to identify the lesion precisely. The lesion was noted in the posterior segment of the left lower lobe. Under navigational guidance, we were able to initially do transbronchial biopsies of the left lower lobe lesion. Subsequent to that we did a needle biopsy of the lesion in the left lower lobe. Afterwards, we used the [place] brush to do biopsies and brushes in the left lower lobe. Finally, we did a formal wash in the left lower lobe. There was minimal bleeding; less than a couple of mL. There was no immediate complication. The patient was rock-solid stable throughout the entire procedure. The bronchoscope was withdrawn. The samples will be sent to the laboratory for analysis. The pathology forms are filled out. The patient will be recovered. We did have a chance to speak to the patient's daughter and explained to her that it would probably be sometime mid to late next week before we had the samples back. Again there was no immediate complication. The patient tolerated the procedure well. MMMELANIAL / CARMENN: [id number] / SHARLENE
[2021-09-19 03:05] LABS: Appearance,BF Blood Tinged
== END 2021-09-18 14:52 | disposition home or self-care (01) ==
LOC: ORWHC2ENDO 10:46
PROVIDERS: ATTEND Internal Medicine Critical Care Medicine
DX: J40 Bronchitis, not specified as acute or chronic (principal); K21.9 Gastro-esophageal reflux disease without esophagitis; C50.919 Malignant neoplasm of unspecified site of unspecified female breast; F32.A Depression, unspecified; I10 Essential (primary) hypertension; E11.9 Type 2 diabetes mellitus without complications; E78.5 Hyperlipidemia, unspecified; M19.90 Unspecified osteoarthritis, unspecified site; F41.9 Anxiety disorder, unspecified; M06.9 Rheumatoid arthritis, unspecified; I25.2 Old myocardial infarction; Z96.649 Presence of unspecified artificial hip joint; Z98.890 Other specified postprocedural states; Z98.42 Cataract extraction status, left eye; Z98.41 Cataract extraction status, right eye; Z80.9 Family history of malignant neoplasm, unspecified; Z87.891 Personal history of nicotine dependence; Z90.710 Acquired absence of both cervix and uterus; Z79.899 Other long term (current) drug therapy; Z79.82 Long term (current) use of aspirin; Z88.8 Allergy status to other drugs, medicaments and biological substances; Z88.0 Allergy status to penicillin; Z88.6 Allergy status to analgesic agent; Z91.040 Latex allergy status; Z91.048 Other nonmedicinal substance allergy status
CPT/HCPCS: 88104; 88305; 89050; 87070; 87205; 71045; 71250; 31628; 31623; 31627; J2001; J3010; J0330; J2704; 31624; 31625; 31633

== ENCOUNTER → 2021-12-04 | Outpatient (CLI) | payer MEDICARE, BC ==
--- NOTE | 2021-12-04 14:05 | CT ---
EXAMINATION TYPE: CT chest wo con DATE OF EXAM: 12/04/2021 COMPARISON: 08/05/2021 HISTORY: h/o left side lung nodules CT DLP: 510 mGycm, Automated exposure control for dose reduction was used. CONTRAST: Performed injected with 0 mL of Isovue 300. TECHNIQUE: Axial images were obtained at 5 mm thick sections. Reconstructed images are reviewed on [facility] computer in the coronal plane. FINDINGS: Portion of the thyroid visualized is normal. There is a consolidation in posterior lateral left lung base appears larger. This is currently estima manuel to measure 8.1 x 4.3 cm. This previously was estimated to measure 6.0 x 3.2 cm. Previous right lung nodules are not identified. The 1.3 cm groundglass opacity appears smaller than t comparison. Series 4 image 28. The 0.9 x 0.4 cm density in the posterior lateral right mid lung, s eries 4 image 33 may have minimal increase in size. Previous measurement 0.7 x 0.4 cm. No enlarged mediastinal or hilar adenopathy is evident. The ascending aorta diameter at the level o f the main pulmonary artery is 3.1 cm. The main pulmonary artery diameter at the bifurcation is 2.3 cm. Mild coronary artery calcification is present. Left-sided lumpectomy changes appear to be present. Limited CT sections are obtained through the upper abdomen. Abdomen is essentially unremarkable. IMPRESSIONS: 1. Overall slight increase in previous bilateral lung findings with the consolidation of the left luther g base and a very small nodule in the posterior lateral right mid lung. Groundglass opacity is slight ly smaller.
== END | disposition home or self-care (01) ==
LOC: RADCTMAIN 11:28
PROVIDERS: ATTEND Internal Medicine Critical Care Medicine
DX: R91.8 Other nonspecific abnormal finding of lung field (principal)
CPT/HCPCS: 71250

== ENCOUNTER 2023-04-15 11:48 | Inpatient (IN) | payer MEDICARE, BC ==
[2023-04-15] MEDS ORDERED: ASPIRIN 81 MG PO STA (12:12)
[2023-04-15] MEDS ORDERED: NITROGLYCERIN SL TABS 0.4 MG TAB SUBLINGUAL STA ×3 (12:12)
--- NOTE | 2023-04-15 12:17 | ED ---
General Adult HPI - General Chief complaint: Chest Pain Stated complaint: chest pain Time Seen by Provider: 04/15/23 12:06 Source: patient, EMS, RN notes reviewed Mode of arrival: EMS Limitations: no limitations - History of Present Illness Initial comments: Patient is a pleasant 83-year-old female presenting to the emergency Department with chest discomfort. Onset of symptoms was around 8 AM. Discomfort remains and is somewhat severe rated 8 or 10/10. Discomfort feels like pressure. There is some radiation towards the back. Patient has some mild associated dyspnea. No nausea. No diaphoresis. Patient does have history of heart attack years ago with similar symptoms. - Related Data Home Medications Medication Instructions Recorded Confirmed Cholecalciferol [Vitamin D3 (25 25 mcg PO DAILY 10/08/15 09/17/21 Mcg = 1000 Iu)] Hawks-3 Fatty Acids/Fish Oil [Fish 1 cap PO DAILY 10/08/15 09/17/21 Oil 1,000 mg Softgel] atenoloL 25 mg PO BID 12/31/20 09/17/21 Aspirin [Adult Low Dose Aspirin EC] 81 mg PO DAILY 08/05/21 09/17/21 Garlique 1 cap PO DAILY 08/05/21 09/17/21 Red Yeast Rice 600 mg PO DAILY 08/05/21 09/17/21 Vit C/Ascorb Sod/Multivit-Min 1,000 mg PO DAILY 08/05/21 09/17/21 [Emergen-C 500 mg Chewable Tab] Vit C/E/Zn/Coppr/Lutein/Zeaxan 1 cap PO BID 08/05/21 09/17/21 [Preservision Areds 2 Softgel] Vitamin B Complex 1 cap PO DAILY 08/05/21 09/17/21 Aspirin [Aspirin EC] 650 mg PO DIRECTED PRN 09/17/21 09/17/21 Calcium Carbonate [Tums] 500 - 1,000 mg PO QID PRN 09/17/21 09/17/21 Docusate [Colace] 100 mg PO BID 09/17/21 09/17/21 Elderberry Sambucol 630 Mg 630 mg PO DAILY 09/17/21 09/18/21 Iron 28 mg PO DAILY 09/17/21 09/17/21 Magnesium Hydroxide [Milk of 400 mg PO DIRECTED PRN 09/17/21 09/17/21 Magnesia] Menthol [Biofreeze] 1 applic TOPICAL DIRECTED PRN 09/17/21 09/17/21 Previous Rx's Medication Instructions Recorded Losartan [Cozaar] 25 mg PO DAILY #0 tab 08/11/21 Allergies Allergy/AdvReac Type Severity Reaction Status Date / Time aspirin Allergy Unknown Verified 09/18/21 11:24 [From Excedrin Extra Strength] caffeine Allergy Unknown Verified 09/18/21 11:24 [From Excedrin Extra Strength] celecoxib [From Celebrex] Allergy Rash/Hives Verified 09/18/21 11:24 duloxetine Allergy Unknown Verified 09/18/21 11:24 escitalopram Allergy Unknown Verified 09/18/21 11:24 iodine Allergy Swelling Verified 09/18/21 11:24 latex Allergy Anaphylaxis Verified 09/18/21 11:24 niacin Allergy Rash/Hives Verified 09/18/21 11:24 Penicillins Allergy Rash/Hives Verified 09/18/21 11:24 povidone-iodine Allergy Rash/Hives Verified 09/18/21 11:24 [From Betadine] simvastatin Allergy Unknown Verified 09/18/21 11:24 sulfamethoxazole Allergy Unknown Verified 09/18/21 11:24 [From Septra] trimethoprim [From Septra] Allergy Unknown Verified 09/18/21 11:24 acetaminophen [From Tylenol] AdvReac makes Verified 09/18/21 11:24 migraines worse atorvastatin calcium AdvReac muscle pain Verified 09/18/21 11:24 [From Lipitor] naproxen sodium [From Aleve] AdvReac migraines Verified 09/18/21 11:24 warfarin sodium AdvReac Vomiting Verified 09/18/21 11:24 [From Coumadin] ivory soap Allergy Unknown Uncoded 09/18/21 11:24 Review of Systems ROS Statement: Those systems with pertinent positive or pertinent negative responses have been documented in the HPI. ROS Other: All systems not noted in ROS Statement are negative. Constitutional: Denies: fever Eyes: Denies: eye pain ENT: Denies: ear pain Respiratory: Reports: as per HPI. Denies: cough Cardiovascular: Reports: as per HPI, chest pain Endocrine: Denies: fatigue Gastrointestinal: Denies: abdominal pain Genitourinary: Denies: dysuria Musculoskeletal: Reports: as per HPI Past Medical History Past Medical History: Cancer, Diabetes Mellitus, GERD/Reflux, GI Bleed, Hyperlipidemia, Hypertension, Myocardial Infarction ([place]), Osteoarthritis (OA), Rheumatoid Arthritis (RA) Additional Past Medical History / Comment(s): Hx migraines. Left breast cancer 2009, 31 radiation tx. Diabetic "borderline" - diet controlled. Rectal bleeding 08/05/21 for 4 days. Last Myocardial Infarction Date:: unknown History of Any Multi-Drug Resistant Organisms: None Reported Past Surgical History: Breast Surgery, Hysterectomy, Joint Replacement, Orthopedic Surgery Additional Past Surgical History / Comment(s): left breast lumpectomy, left knee arthroscopy, bilat cataracts, rt hand surgery-tumor removed from index finger, Bilat Hip Replacement. Colonoscopy, EGD Past Anesthesia/Blood Transfusion Reactions: Previous Problems w/ Anesthesia, Motion Sickness, Postoperative Nausea & Vomiting (PONV) Additional Past Anesthesia/Blood Transfusion Reaction / Comment(s): "after EGD had dislocated jaw, ear ache for 3 weeks, and dislocated rt shoulder-not sure what happened," "vomited for 2 days after hip surgery" Past Psychological History: Anxiety, Depression Smoking Status: Former smoker Past Alcohol Use History: None Reported Past Drug Use History: None Reported - Past Family History Father Family Medical History: Cancer Additional Family Medical History / Comment(s): lung cancer Daughter(s) Family Medical History: Cancer Additional Family Medical History / Comment(s): skin Brother(s) Family Medical History: Cancer Additional Family Medical History / Comment(s): unsure of type of cancer General Exam Limitations: no limitations General appearance: alert, in no apparent distress Head exam: Present: normocephalic Eye exam: Present: normal appearance Neck exam: Present: normal inspection Respiratory exam: Present: normal lung sounds bilaterally Cardiovascular Exam: Present: regular rate, normal rhythm, normal heart sounds Expanded Peripheral pulses: 2+: Radial (R), Radial (L), Dorsalis Pedis (R), Dorsalis Pedis (L) GI/Abdominal exam: Present: soft. Absent: tenderness Extremities exam: Present: normal inspection. Absent: pedal edema, calf tenderness Neurological exam: Present: alert Psychiatric exam: Present: normal affect, normal mood Skin exam: Present: normal color Course Vital Signs 04/15/23 11:53 Temperature 98.6 F Pulse Rate 67 Respiratory 20 Rate Blood Pressure 152/83 O2 Sat by Pulse 93 L Oximetry - Reevaluation(s) Reevaluation #1: 04/15/23 12:15 Cardiology has been paged. Repeat EKG (interpreted by myself) shows sinus rhythm with a rate of 70. For screening AV block. PVCs present. Inferior Q waves with borderline ST change. Normal axis. 04/15/23 12:17 Right-sided EKG interpreted by myself shows sinus rhythm with a rate of 65. Inferior Q waves with oral and ST elevation. No elevation in V4. 04/15/23 12:18 Previous EKG reviewed dated 08/05/21 without inferior changes. 04/15/23 12:26 Case was discussed with Dr. Lyman, who does recommend calling STEMI alert secondary to borderline changes and patient having continued discomfort. This has been done. EKG Findings - EKG Results: EKG: interpreted by ERMD (First-degree AV block. Inferior Q waves with borderline ST elevation.), sinus rhythm, normal axis Medical Decision Making - Medical Decision Making After second nitroglycerin patient is again reevaluated and is starting to feel better. Discomfort is currently 6 or 7/10. Patient and family are updated on plan. Was pt. sent in by a medical professional or institution (, PA, [employer], urgent care, hospital, or skilled nursing...) When possible be specific @ -No Did you speak to anyone other than the patient for history (EMS, parent, family, police, friend...)? What history was obtained from this source @ -Family is present and helps for including history of previous problems. Did you review nursing and triage notes (agree or disagree)? Why? @ -I reviewed and agree with nursing and triage notes Were old charts reviewed (outside hosp., previous admission, EMS record, old EKG, old radiological studies, urgent care reports/EKG's, skilled nursing records)? Report findings @ -No old charts were reviewed Differential Diagnosis (chest pain, altered mental status, abdominal pain women, abdominal pain men, vaginal bleeding, weakness, fever, dyspnea, syncope, headache, dizziness, GI bleed, back pain, seizure, CVA, palpatations, mental health, musculoskeletal)? @ -Differential Chest Pain: Stable Angina, Unstable Angina, STEMI, NSTEMI Aortic Dissection, Pneumothorax, Musculoskeletal, Esophageal Spasm GERD, Cholecystitis, Pancreatitis, Zoster, this is not meant to be an all-inclusive list. EKG interpreted by me (3pts min.). @ -As above X-rays interpreted by me (1pt min.). @ -Chest x-ray does not reveal acute. CT interpreted by me (1pt min.). @ -None done U/S interpreted by me (1pt. min.). @ -None done What testing was considered but not performed or refused? (CT, X-rays, U/S, labs)? Why? @ -None What meds were considered but not given or refused? Why? @ -None Did you discuss the management of the patient with other professionals (professionals i.e. Dr., PA, [employer], lab, RT, psych nurse, social studies teacher, eating disorder specialist, teacher, contracts officer, test case developer)? Give summary @ -As above, case was discussed with Dr. Palma who did recommend calling Stemi alert and will take patient to [facility]. Case also discussed with Dr. Fink who will admit his patient. Was smoking cessation discussed for >3mins.? @ -No Was critical care preformed (if so, how long)? @ -31 minutes of critical care time Were there social determinants of health that impacted care today? How? (Homelessness, low income, unemployed, alcoholism, drug addiction, transportation, low edu. Level, literacy, decrease access to med. care, fdc, rehab)? @ -No Was there de-escalation of care discussed even if they declined (Discuss DNR or withdrawal of care, Hospice)? DNR status @ -No What co-morbidities impacted this encounter? (DM, HTN, Smoking, COPD, CAD, Cancer, CVA, ARF, Chemo, Hep., AIDS, mental health diagnosis, sleep apnea, morbid obesity)? @ -None Was patient admitted / discharged? Hospital course, mention meds given and route, prescriptions, significant lab abnormalities, going to OR and other pertinent info. @ -Patient reevaluated several times. Patient will be admitted and go to [facility]. Admission orders written. Heparin started. Undiagnosed new problem with uncertain prognosis? @ -No Drug Therapy requiring intensive monitoring for toxicity (Heparin, Nitro, Insuli n, Cardizem)? @ -Patient is on heparin drip that will need monitoring Were any procedures done? @ -No Diagnosis/symptom? @ -STEMI Acute, or Chronic, or Acute on Chronic? @ -Acute Uncomplicated (without systemic symptoms) or Complicated (systemic symptoms)? @ -default Side effects of treatment? @ -No Exacerbation, Progression, or Severe Exacerbation? @ -No Poses a threat to life or bodily function? How? (Chest pain, [place], [place], pneumonia, PE, COPD, DKA, ARF, appy, cholecystitis, CVA, Diverticulitis, Homicidal, Suicidal, threat to staff... and all critical care pts) @ -STEMI has potential to cause cardiac damage - Lab Data Result diagrams: 04/15/23 12:21 Lab Results 04/15/23 Range/Units 12:21 WBC 16.0 H (3.8-10.6) k/uL RBC 4.92 (3.80-5.40) m/uL Hgb 14.5 (11.4-16.0) gm/dL Hct 44.1 (34.0-46.0) % MCV 89.5 (80.0-100.0) fL MCH 29.4 (25.0-35.0) pg MCHC 32.9 (31.0-37.0) g/dL RDW 13.9 (11.5-15.5) % Plt Count 183 (150-450) k/uL MPV 8.2 Neutrophils % 81 % Lymphocytes % 10 % Monocytes % 7 % Eosinophils % 1 % Basophils % 0 % Neutrophils # 13.0 H (1.3-7.7) k/uL Lymphocytes # 1.6 (1.0-4.8) k/uL Monocytes # 1.1 H (0-1.0) k/uL Eosinophils # 0.1 (0-0.7) k/uL Basophils # 0.1 (0-0.2) k/uL Critical Care Time Critical Care Time: Yes Total Critical Care Time: 31 Disposition Clinical Impression: ST elevation myocardial infarction (STEMI) Disposition: ADMITTED IP TO THIS HOSP Condition: Serious Is patient prescribed a controlled substance at d/c from ED?: No Referrals: Lokesh Fink MD [Primary Care Provider] - 1-2 days Time of Disposition: 12:45
[2023-04-15 12:26] LABS: Basophils # (A) 0.1 k/uL (0-0.2); Basophils % (A) 0 %; Eosinophils # (A) 0.1 k/uL (0-0.7); Eosinophils % (A) 1 %; HCT 44.1 % (34.0-46.0); HGB 14.5 gm/dL (11.4-16.0); Lymphocytes # (A) 1.6 k/uL (1.0-4.8); Lymphocytes % (A) 10 %; MCH 29.4 pg (25.0-35.0); MCHC 32.9 g/dL (31.0-37.0); MCV 89.5 fL (80.0-100.0); Mean Platelet Volume 8.2; Monocytes # (A) 1.1 k/uL (0-1.0); Monocytes % (A) 7 %; Neutrophils % (A) 81 %; Platelet Count 183 k/uL (150-450); RBC 4.92 m/uL (3.80-5.40); RDW 13.9 % (11.5-15.5)
[2023-04-15] MEDS ORDERED: HEPARIN SODIUM 1,000 UN/ML (10ML VL) IVP STA (12:30)
[2023-04-15] MEDS ORDERED: NITROGLYCERIN SL TABS 0.4 MG TAB SUBLINGUAL PRN (12:32)
[2023-04-15] MEDS ORDERED: LIDOCAINE 1% INJ 10MG/ML (20 ML MDV) ONE (12:33)
[2023-04-15] MEDS ORDERED: VERAPAMIL 2.5 MG/ML 2 ML AMP ONE ×2 (12:33→13:22)
--- NOTE | 2023-04-15 12:33 | XR ---
EXAMINATION TYPE: XR chest 1V portable DATE OF EXAM: 04/15/2023 HISTORY: Shortness of breath. COMPARISON: 09/18/2021 TECHNIQUE: Single view of the chest is submitted. FINDINGS: Demonstrated are scattered senescent parenchymal change. There is no evidence for focal infiltrate. The heart is stable. Hilar and mediastinal structures are within normal limits. Degenerative changes are seen of the dorsal spine. IMPRESSION: 1. Chronic changes without evidence for acute pulmonary disease.
[2023-04-15 12:46] LABS: ALT 28 U/L (4-34); AST 29 U/L (14-36); African American GFR (CKD) >90 (>60 ml/min/1.73 sqM); Albumin 4.2 g/dL (3.5-5.0); Alkaline Phosphatase 79 U/L (38-126); Anion Gap 9 mmol/L; Blood Urea Nitrogen 20 mg/dL (7-17); Calcium 9.9 mg/dL (8.4-10.2); Carbon Dioxide 26 mmol/L (22-30); Chloride 98 mmol/L (98-107); Glucose 175 mg/dL (74-99); Magnesium 2.1 mg/dL (1.6-2.3); Non-African American GFR(CKD) 83 (>60 ml/min/1.73 sqM); Potassium 4.9 mmol/L (3.5-5.1); Sodium 133 mmol/L (137-145); Total Bilirubin 0.8 mg/dL (0.2-1.3); Total Protein 7.2 g/dL (6.3-8.2)
[2023-04-15] MEDS ORDERED: fentaNYL (PF) 50 MCG/ML 2 ML AMP ONE (12:48)
[2023-04-15 12:52] LABS: Partial Thromboplastin Time 22.5 sec (22.0-30.0); Prothrombin Time 10.5 sec (9.0-12.0)
[2023-04-15] MEDS ORDERED: methylPREDNISolone SOD SUCCI 125 MG/2 ML VIAL ONE (12:56)
[2023-04-15] MEDS ORDERED: diphenhydrAMINE 50 MG/ML 1 ML VIAL ONE (12:56)
[2023-04-15] MEDS ORDERED: methylPREDNISolone SOD SUCCI 125 MG/2 ML VIAL IVP ONE (12:58)
[2023-04-15] MEDS ORDERED: diphenhydrAMINE 50 MG/ML 1 ML VIAL IVP ONE (12:58)
[2023-04-15] MEDS ORDERED: MIDAZOLAM 2 MG/2 ML VIAL IVP ONE (13:00)
[2023-04-15] MEDS ORDERED: fentaNYL (PF) 50 MCG/1 ML VIAL IVP ONE (13:00)
[2023-04-15] MEDS ORDERED: LIDOCAINE 1% INJ 10MG/ML (20 ML MDV) SQ ONE (13:02)
[2023-04-15] MEDS ORDERED: HEPARIN SODIUM 1,000 UN/ML (10ML VL) ONE (13:12)
[2023-04-15] MEDS ORDERED: IOPAMIDOL-370 200ML BTL INJ ONE (13:36)
[2023-04-15] MEDS ORDERED: IV FLUID CONTINUATION 500 ML IV ONE (13:37)
[2023-04-15] MEDS ORDERED: SODIUM CHLORIDE 0.9% 1,000 ML IV SCH ×2 (13:45→14:00)
--- NOTE | 2023-04-15 13:45 | P.CARDCATH ---
Date of Procedure: 04/15/23 Description of Procedure: DIAGNOSTIC CORONARY ANGIOGRAPHY and LEFT HEART CATH REPORT PROCEDURES PERFORMED: Left heart catheterization Selective coronary angiography Moderate conscious sedation 37 mins Right radial access INDICATION: STEMI 83-year-old female presents with a hospital with started this morning. She reports that this pain is related to her back and is somewhat similar to her prior myocardial infarction. Patient reported that she has never had any prior PCI done for her myocardial infarction. She has history of left breast cancer status post resection and lymph node dissection. She also has history of lung nodule. She was taken for emergent cardiac catheterization because of ongoing substernal chest pain and back pain along with borderline ECG changes showing 0.5-[address] elevations in the inferolateral leads CONSENT: I have discussed the risks, benefits and alternative therapies for the above-mentioned procedure, sedation/analgesia and necessary blood product administration (if indicated, as they pertain to this patient). The patient has indicated understanding and acceptance of the risks and procedures discussed. Conscious Sedation: Patient's ECG, heart rate, blood pressure, pulse oximetry was monitored throughout the duration of procedure under the direct supervision. 1 mg Versed and 25 mg Fentanyl were used for induction of moderate conscious sedation. Total duration of 37 minutes. Patient has history of iodine ALLERGY. For this he was given in the emergency prep. She received 60 mg of IV Solu- Medrol and 50 mg of IV Benadryl. PROCEDURE:After the risks, benefits and alternatives of the above mentioned procedure explained in detail with the patient, informed consent was obtained. Patient was taken to the catheterization lab and prepped and draped in usual radha rile fashion. 1% lidocaine was infiltrated over the right radial artery. A 6- [place] sheath was placed in the right radial artery using modified Seldinger technique. The sheath was flushed 5 mg verapamil was administered intra- arterially. J tipped wire was advanced under fluoroscopic guidance. Once the wire tip reached aortic root [5000] units of IV heparin was given. Over the wire JL3.5 diagnostic catheter was advanced. Wire was removed, catheter was flushed and manipulated under fluoroscopy to selectively engaged the left coronary ostium. Left coronary angioplasty was performed in different angiographic projections. This catheter was exchanged for a JR4 diagnostic catheter over the wire. The catheter was flushed and manipulated to cross the aortic valve. LV pressures were obtained. Pullback was performed across aortic valve and catheter was manipulated to selectively engage the right coronary ostium under fluoroscopic guidance. Right coronary angiography was performed in different an giographic projections. Catheter was removed over the wire. Radial sheath was flushed. The right radial sheath was removed and a TR band was placed with excellent patent hemostasis was achieved. The patient tolerated the procedure well. Patient was transported back to the post catheterization holding area in stable condition. Angiographic images were reviewed in detail. HEMODYNAMICS: Aortic Pressure: 145/70 mmHg. LV pressure: 145/10 mmHg. LVEDP 24 mmHg. SELECTIVE CORONARY ARTERIOGRAPHY: LEFT MAIN: The left main is a large caliber vessel which bifurcates into the LAD and circumflex. There is no significant stenosis. LEFT ANTERIOR DESCENDING CORONARY ARTERY: LAD is a large caliber vessel which wraps around to the apex. Proximal LAD appears angiographically normal. Mid LAD has 40-50% diffuse long disease. Distal LAD has 80-90% diffuse disease but it is less than 1.5 mm in diameter. It has PATRICK 3 flow distally. LEFT CIRCUMFLEX CORONARY ARTERY: It is nondominant vessel. Left circumflex is a moderate caliber vessel which appears angiographically normal. There is mild luminal irregularities. Oblique marginal branches has mild luminal irregularities. RIGHT CORONARY ARTERY: Dominant vessel. The right coronary artery is a large caliber vessel which gives off a PDA and PLV branch. It appears angiographically normal other than mild luminal irregularities. RCA ostium had catheter induced spasm which resolved with the catheter was disengaged. IMPRESSION: Moderate nonobstructive disease in mid LAD Diffuse severe disease in distal LAD not amiable for intervention Minimal luminal irregularities and other coronary institution Mildly elevated LVEDP PLAN: Aggressive risk factor modification per most recent ACC/AHA guidelines. Admitted to inpatient for further workup for noncardiac etiology of chest pain. Performing Physician Justin Lyman MD
--- NOTE | 2023-04-15 13:49 | P.CRDCN ---
History of Present Illness Consult date: 04/15/23 History of present illness: HISTORY OF PRESENTING ILLNESS Patient is a 83-year-old female with past medical history of left breast cancer status post resection and lymph node dissection, lung nodule. She has prior history of myocardial infarction but no mention of surgeries to her heart. It is unknown if she follows up with a law office assistant. She has not had any cardiac testing done in our hospital. This time she presented to the hospital with substernal chest pain which was radiating to her back since this morning. In ER she had minimal response to nitroglycerin. Her lab shows normal hemoglobin, normal electrolytes, normal creatinine. And troponins were not elevated. Her ECG showed borderline ST elevations measuring 0.5 mm in inferior and anterolateral leads. Because of borderline ECG changes and ongoing substernal chest pain which was not relieving with nitroglycerin and patients reporting that her pain is very similar to her prior myocardial infarction, she was taken for an emergent cardiac catheterization. Patient has ALLERGY to iodine contrast. She receives 4000 unit of heparin in the ER. Patient was explained the risks and benefit of cardiac catheterization procedure and the need for 1. Patient gave verbal consent to proceed with a cardiac catheterization. REVIEW OF SYSTEMS 14 point review of system is negative except what is mentioned above in HPI. PHYSICAL EXAMINATION Vital signs reviewed. Head: Normocephalic. Eyes: Sclerae nonicteric. Neck: Brisk carotid upstroke, no jugular venous distention. Lungs: Clear to auscultation. Heart: Regular rate and rhythm, S1-S2, no S3, no murmur or rub. Abdomen: Soft nontender, positive bowel sounds no organomegaly. Extremities: No edema, intact distal pulses. ASSESSMENT Substernal chest pain didn't do back started this morning, not relieved with nitroglycerin Borderline ECG changes elevations measuring 0.5 mm in inferolateral leads Prior history of left breast cancer PLAN Emergent cardiac catheterization procedure. Further recommendations to follow Obtain an echocardiogram Past Medical History Past Medical History: Cancer, Diabetes Mellitus, GERD/Reflux, GI Bleed, Hyperlipidemia, Hypertension, Myocardial Infarction ([place]), Osteoarthritis (OA), Rheumatoid Arthritis (RA) Additional Past Medical History / Comment(s): Hx migraines. Left breast cancer 2009, 33 radiation tx. Diabetic "borderline" - diet controlled. Rectal bleeding 08/05/21 for 4 days. Last Myocardial Infarction Date:: unknown History of Any Multi-Drug Resistant Organisms: None Reported Past Surgical History: Breast Surgery, Hysterectomy, Joint Replacement, Orthopedic Surgery Additional Past Surgical History / Comment(s): left breast lumpectomy, left knee arthroscopy, bilat cataracts, rt hand surgery-tumor removed from index finger, Bilat Hip Replacement. Colonoscopy, EGD Past Anesthesia/Blood Transfusion Reactions: Previous Problems w/ Anesthesia, Motion Sickness, Postoperative Nausea & Vomiting (PONV) Additional Past Anesthesia/Blood Transfusion Reaction / Comment(s): "after EGD had dislocated jaw, ear ache for 3 weeks, and dislocated rt shoulder-not sure what happened," "vomited for 2 days after hip surgery" Past Psychological History: Anxiety, Depression Smoking Status: Former smoker Past Alcohol Use History: None Reported Past Drug Use History: None Reported - Past Family History Father Family Medical History: Cancer Additional Family Medical History / Comment(s): lung cancer Daughter(s) Family Medical History: Cancer Additional Family Medical History / Comment(s): skin Brother(s) Family Medical History: Cancer Additional Family Medical History / Comment(s): unsure of type of cancer Medications and Allergies Home Medications Medication Instructions Recorded Confirmed Type Cholecalciferol [Vitamin D3 (25 25 mcg PO DAILY 10/08/15 09/17/21 History Mcg = 1000 Iu)] [place]-3 Fatty Acids/Fish Oil [Fish 1 cap PO DAILY 10/08/15 09/17/21 History Oil 1,000 mg Softgel] atenoloL 25 mg PO BID 12/31/20 09/17/21 History Aspirin [Adult Low Dose Aspirin EC] 81 mg PO DAILY 08/05/21 09/17/21 History Garlique 1 cap PO DAILY 08/05/21 09/17/21 History Red Yeast Rice 600 mg PO DAILY 08/05/21 09/17/21 History Vit C/Ascorb Sod/Multivit-Min 1,000 mg PO DAILY 08/05/21 09/17/21 History [Emergen-C 500 mg Chewable Tab] Vit C/E/Zn/Coppr/Lutein/Zeaxan 1 cap PO BID 08/05/21 09/17/21 History [Preservision Areds 2 Softgel] Vitamin B Complex 1 cap PO DAILY 08/05/21 09/17/21 History Losartan [Cozaar] 25 mg PO DAILY #0 tab 08/11/21 09/17/21 Rx Aspirin [Aspirin EC] 650 mg PO DIRECTED PRN 09/17/21 09/17/21 History Calcium Carbonate [Tums] 500 - 1,000 mg PO QID PRN 09/17/21 09/17/21 History Docusate [Colace] 100 mg PO BID 09/17/21 09/17/21 History Elderberry Sambucol 630 Mg 630 mg PO DAILY 09/17/21 09/18/21 History Iron 28 mg PO DAILY 09/17/21 09/17/21 History Magnesium Hydroxide [Milk of 400 mg PO DIRECTED PRN 09/17/21 09/17/21 History Magnesia] Menthol [Biofreeze] 1 applic TOPICAL DIRECTED PRN 09/17/21 09/17/21 History Allergies Allergy/AdvReac Type Severity Reaction Status Date / Time aspirin Allergy Unknown Verified 09/18/21 11:24 [From Excedrin Extra Strength] caffeine Allergy Unknown Verified 09/18/21 11:24 [From Excedrin Extra Strength] celecoxib [From Celebrex] Allergy Rash/Hives Verified 09/18/21 11:24 duloxetine Allergy Unknown Verified 09/18/21 11:24 escitalopram Allergy Unknown Verified 09/18/21 11:24 iodine Allergy Swelling Verified 09/18/21 11:24 latex Allergy Anaphylaxis Verified 09/18/21 11:24 niacin Allergy Rash/Hives Verified 09/18/21 11:24 Penicillins Allergy Rash/Hives Verified 09/18/21 11:24 povidone-iodine Allergy Rash/Hives Verified 09/18/21 11:24 [From Betadine] simvastatin Allergy Unknown Verified 09/18/21 11:24 sulfamethoxazole Allergy Unknown Verified 09/18/21 11:24 [From Septra] trimethoprim [From Septra] Allergy Unknown Verified 09/18/21 11:24 acetaminophen [From Tylenol] AdvReac makes Verified 09/18/21 11:24 migraines worse atorvastatin calcium AdvReac muscle pain Verified 09/18/21 11:24 [From Lipitor] naproxen sodium [From Aleve] AdvReac migraines Verified 09/18/21 11:24 warfarin sodium AdvReac Vomiting Verified 09/18/21 11:24 [From Coumadin] ivory soap Allergy Unknown Uncoded 09/18/21 11:24 Physical Exam Vitals: Vital Signs Temp Pulse Resp BP Pulse Ox 04/15/23 11:53 98.6 F 67 20 152/83 93 L Intake and Output 04/14/23 04/15/23 04/15/23 22:59 06:59 14:59 Intake Total 100 Balance 100 Intake: IV 100 Other: Weight 81.647 kg Results 04/15/23 12:21 04/15/23 12:21 Cardiac Enzymes 04/15/23 04/15/23 Range/Units 12:21 12:21 AST 29 (14-36) U/L Troponin I <0.012 (0.000-0.034) ng/mL Coagulation 04/15/23 Range/Units 12:21 PT 10.5 (9.0-12.0) sec APTT 22.5 (22.0-30.0) sec CBC 04/15/23 Range/Units 12:21 WBC 16.0 H (3.8-10.6) k/uL RBC 4.92 (3.80-5.40) m/uL Hgb 14.5 (11.4-16.0) gm/dL Hct 44.1 (34.0-46.0) % Plt Count 183 (150-450) k/uL Comprehensive Metabolic Panel 04/15/23 Range/Units 12:21 Sodium 133 L (137-145) mmol/L Potassium 4.9 (3.5-5.1) mmol/L Chloride 98 (98-107) mmol/L Carbon Dioxide 26 (22-30) mmol/L BUN 20 H (7-17) mg/dL Creatinine 0.62 (0.52-1.04) mg/dL Glucose 175 H (74-99) mg/dL Calcium 9.9 (8.4-10.2) mg/dL AST 29 (14-36) U/L ALT 28 (4-34) U/L Alkaline Phosphatase 79 (38-126) U/L Total Protein 7.2 (6.3-8.2) g/dL Albumin 4.2 (3.5-5.0) g/dL Current Medications Generic Name Dose Route Start Last Admin Trade Name Freq PRN Reason Stop Dose Admin Aspirin 325 mg 04/16/23 09:00 Aspirin 325 Mg Tab PO DAILY NITA Heparin Sodium/Sodium Chloride 250 mls @ 9.798 mls/hr 04/15/23 13:00 25,000 unit/ Sodium Chloride IV .Q24H [facility] Protocol 12 UNITS/KG/HR Nitroglycerin 0.4 mg 04/15/23 12:32 Nitroglycerin Sl Tabs 0.4 Mg Tab SUBLINGUAL Q5M PRN Chest Pain Nitroglycerin 1 inch 04/15/23 18:00 Nitroglycerin Oint 1 Inch/Gm Packet TOPICAL Q6HR [facility] Intake and Output 04/14/23 04/15/23 04/15/23 22:59 06:59 14:59 Intake Total 100 Balance 100 Intake: IV 100 Other: Weight 81.647 kg Patient Weight 04/16/23 06:59 Weight 81.647 kg 04/15/23 12:21 04/15/23 12:21
[2023-04-15] MEDS ORDERED: RX INFO: IV CONTRAST WAS GIVEN 1 EACH MISC MISCELLANE PRN (13:50)
[2023-04-15] MEDS ORDERED: DEXTROSE 50% SYRINGE 50 ML IVP PRN ×2 (15:03)
--- NOTE | 2023-04-15 15:05 | P.HPIM ---
History of Present Illness H&P Date: 04/15/23 HISTORY OF PRESENT ILLNESS This is an 83-year-old female with past medical history of hypertension, diabetes mellitus type 2, gastroesophageal reflux disease, left breast cancer status post radiation and lumpectomy in 2009. Patient presented to the hospital due to chest pain that had radiation into his neck and back. Lab work was unremarkable including troponins. EKG was concerning for mild ST elevation in the inferior and anterior lateral leads and thus STEMI alert was called and patient was taking to the blood bank laboratory technologist urgently and underwent a cardiac catheterization which came back with no obstructive coronary artery disease. Patient is seen today on the [facility]. REVIEW OF SYSTEMS Constitutional: No fever, no chills, no night sweats. No weight change. No weakness, fatigue or lethargy. No daytime sleepiness. EENT: No headache. No blurred vision or double vision, no loss of vision. No loss of Hearing, no ringing in the ears, no dizziness. No nasal drainage or congestion. No epistaxis. No sore throat. Lungs: No shortness of breath, cough, no sputum production. No wheezing. Cardiovascular: Reported chest pain, no lower extremity edema. No palpitations. No paroxysmal nocturnal dyspnea. No orthopnea. No lightheadedness or dizziness. No syncopal episodes. Abdominal: No abdominal pain. No nausea, vomiting. No diarrhea. No constipation. No bloody or tarry stools. No loss of appetite. Genitourinary: No dysuria, increased frequency, urgency. No urinary retention. Musculoskeletal: No myalgias. No muscle weakness, no gait dysfunction, no frequent falls. No back pain. No neck pain. Integumentary: No wounds, no lesions. No rash or pruritus. No unusual bruising. No change in hair or nails. Neurologic: No aphasia. No facial droop. No change in mentation. No head injury. No headache. No paralysis. No paresthesia. Psychiatric: No depression. No anxiety. No mood swings. Endocrine: No abnormal blood sugars. No weight change. No excessive sweating or thirst. No cold intolerance. MEDICAL HISTORY Coronary artery disease Hypertension Hyperlipidemia Diabetes mellitus type 2 Gastroesophageal reflux disease Left breast cancer status post radiation in 2009 Generalized anxiety disorder Migraine headache with aura SURGICAL HISTORY Bilateral cataract removal and intraocular lens implants Left breast lumpectomy in 2009 Left knee arthroplasty Hysterectomy with BSO Right hand tumor resection Colonoscopy Left hip replacement SOCIAL HISTORY Patient quit smoking in 1982. No alcohol use. No marijuana or illicit drug use. FAMILY HISTORY Father at age 57 from lung cancer. Mother at age 77 from coronary artery disease status post [place] with history of diabetes. Brother at age 69 from agent orange related cancer. Patient has a sister alive at age 82 with history of CVA with left hemiparesis and diabetes. Patient has a son alive at age 58 with RA. Patient has 2 daughters one with hypertension and uterine cancer and one she does not know much of her history. PHYSICAL EXAMINATION Gen: This is an 83-year-old female. Patient is seen today in the [facility] following cardiac catheterization. HEENT: Head is atraumatic, normocephalic. Pupils equal, round. Sclerae is anicteric. NECK: Supple. No JVD. No lymphadenopathy. No thyromegaly. LUNGS: Clear to auscultation. No wheezes or rhonchi. No intercostal retractions. HEART: First heart sound is depressed second heart sound is normal there is 2/6 systolic ejection murmur at the left sternal border. No S3 no S4. ABDOMEN: Soft. Bowel sounds are present. No masses. No tenderness. EXTREMITIES: No pedal edema. No calf tenderness. NEUROLOGICAL: Patient is awake, alert and oriented x3. Cranial nerves 2 through 12 are grossly intact. ASSESSMENT AND PLAN 1. Chest pain, acute coronary syndrome ruled out by cardiac catheterization which showed no obstructive coronary artery disease. Cardiology consult appreciated. Echocardiogram is pending. Cardiology is requesting monitoring patient overnight and plan for discharge tomorrow. 2. Diabetes mellitus type 2. Hold metformin. 3. Hypertension.continue atenolol 25 mg daily. 4. History of left breast cancer status post radiation and lumpectomy in 2009, stable. 5. Hyperlipidemia. Continue Zetia 10 mg daily. 6. DVT prophylaxis. Heparin. 7. GI prophylaxis. Protonix. Patient will be admitted to the hospital for a minimum of 2 night stay. DISCHARGE PLAN Return home on Tuesday. Impression and plan of care have been directed as dictated by the signing physician. Charline Salmon nurse practitioner acting as scribe for signing physician. venancio Past Medical History Past Medical History: Cancer, Diabetes Mellitus, GERD/Reflux, GI Bleed, Hyperlipidemia, Hypertension, Myocardial Infarction ([place]), Osteoarthritis (OA), Rheumatoid Arthritis (RA) Additional Past Medical History / Comment(s): Hx migraines. Left breast cancer 2009, 33 radiation tx. Diabetic "borderline" - diet controlled. Rectal bleeding 08/05/21 for 4 days. Last Myocardial Infarction Date:: unknown History of Any Multi-Drug Resistant Organisms: None Reported Past Surgical History: Breast Surgery, Hysterectomy, Joint Replacement, Orthopedic Surgery Additional Past Surgical History / Comment(s): left breast lumpectomy, left knee arthroscopy, bilat cataracts, rt hand surgery-tumor removed from index finger, Bilat Hip Replacement. Colonoscopy, EGD Past Anesthesia/Blood Transfusion Reactions: Previous Problems w/ Anesthesia, Motion Sickness, Postoperative Nausea & Vomiting (PONV) Additional Past Anesthesia/Blood Transfusion Reaction / Comment(s): "after EGD had dislocated jaw, ear ache for 3 weeks, and dislocated rt shoulder-not sure what happened," "vomited for 2 days after hip surgery" Past Psychological History: Anxiety, Depression Smoking Status: Former smoker Past Alcohol Use History: None Reported Past Drug Use History: None Reported - Past Family History Father Family Medical History: Cancer Additional Family Medical History / Comment(s): lung cancer Daughter(s) Family Medical History: Cancer Additional Family Medical History / Comment(s): skin Brother(s) Family Medical History: Cancer Additional Family Medical History / Comment(s): unsure of type of cancer Medications and Allergies Home Medications Medication Instructions Recorded Confirmed Type Cholecalciferol [Vitamin D3 (25 25 mcg PO DAILY 10/08/15 09/17/21 History Mcg = 1000 Iu)] [place]-3 Fatty Acids/Fish Oil [Fish 1 cap PO DAILY 10/08/15 09/17/21 History Oil 1,000 mg Softgel] atenoloL 25 mg PO BID 12/31/20 09/17/21 History Aspirin [Adult Low Dose Aspirin EC] 81 mg PO DAILY 08/05/21 09/17/21 History Garlique 1 cap PO DAILY 08/05/21 09/17/21 History Red Yeast Rice 600 mg PO DAILY 08/05/21 09/17/21 History Vit C/Ascorb Sod/Multivit-Min 1,000 mg PO DAILY 08/05/21 09/17/21 History [Emergen-C 500 mg Chewable Tab] Vit C/E/Zn/Coppr/Lutein/Zeaxan 1 cap PO BID 08/05/21 09/17/21 History [Preservision Areds 2 Softgel] Vitamin B Complex 1 cap PO DAILY 08/05/21 09/17/21 History Losartan [Cozaar] 25 mg PO DAILY #0 tab 08/11/21 09/17/21 Rx Aspirin [Aspirin EC] 650 mg PO DIRECTED PRN 09/17/21 09/17/21 History Calcium Carbonate [Tums] 500 - 1,000 mg PO QID PRN 09/17/21 09/17/21 History Docusate [Colace] 100 mg PO BID 09/17/21 09/17/21 History Elderberry Sambucol 630 Mg 630 mg PO DAILY 09/17/21 09/18/21 History Iron 28 mg PO DAILY 09/17/21 09/17/21 History Magnesium Hydroxide [Milk of 400 mg PO DIRECTED PRN 09/17/21 09/17/21 History Magnesia] Menthol [Biofreeze] 1 applic TOPICAL DIRECTED PRN 09/17/21 09/17/21 History Allergies Allergy/AdvReac Type Severity Reaction Status Date / Time aspirin Allergy Unknown Verified 09/18/21 11:24 [From Excedrin Extra Strength] caffeine Allergy Unknown Verified 09/18/21 11:24 [From Excedrin Extra Strength] celecoxib [From Celebrex] Allergy Rash/Hives Verified 09/18/21 11:24 duloxetine Allergy Unknown Verified 09/18/21 11:24 escitalopram Allergy Unknown Verified 09/18/21 11:24 iodine Allergy Swelling Verified 09/18/21 11:24 latex Allergy Anaphylaxis Verified 09/18/21 11:24 niacin Allergy Rash/Hives Verified 09/18/21 11:24 Penicillins Allergy Rash/Hives Verified 09/18/21 11:24 povidone-iodine Allergy Rash/Hives Verified 09/18/21 11:24 [From Betadine] simvastatin Allergy Unknown Verified 09/18/21 11:24 sulfamethoxazole Allergy Unknown Verified 09/18/21 11:24 [From Septra] trimethoprim [From Septra] Allergy Unknown Verified 09/18/21 11:24 acetaminophen [From Tylenol] AdvReac makes Verified 09/18/21 11:24 migraines worse atorvastatin calcium AdvReac muscle pain Verified 09/18/21 11:24 [From Lipitor] naproxen sodium [From Aleve] AdvReac migraines Verified 09/18/21 11:24 warfarin sodium AdvReac Vomiting Verified 09/18/21 11:24 [From Coumadin] ivory soap Allergy Unknown Uncoded 09/18/21 11:24 Physical Exam Vitals: Vital Signs Temp Pulse Resp BP Pulse Ox 04/15/23 11:53 98.6 F 67 20 152/83 93 L Intake and Output 04/14/23 04/15/23 04/15/23 22:59 06:59 14:59 Intake Total 100 Balance 100 Intake: IV 100 Other: Weight 81.647 kg Results CBC & Chem 7: 04/15/23 12:21 04/15/23 12:21 Labs: Abnormal Lab Results - Last 24 Hours (Table) 04/15/23 04/15/23 Range/Units 12:21 12:21 WBC 16.0 H (3.8-10.6) k/uL Neutrophils # 13.0 H (1.3-7.7) k/uL Monocytes # 1.1 H (0-1.0) k/uL Sodium 133 L (137-145) mmol/L BUN 20 H (7-17) mg/dL Glucose 175 H (74-99) mg/dL
[2023-04-15] MEDS: HEPARIN SOD,PORK IN 0.45% NACL 25,000 UNIT in 0.45% NACL 1 250ML.BAG IV SCH (18:01)
[2023-04-15] MEDS: NITROGLYCERIN OINT 1 INCH/GM PACKET TOPICAL SCH (18:02)
[2023-04-15] MEDS: INSULIN ASPART (NovoLOG) 100 UNIT/ML VIAL SQ SCH ×2 (18:02→20:19)
[2023-04-15 20:09] LABS: Glucose,Whole Blood 420 mg/dL (70-110)
[2023-04-16] MEDS: NITROGLYCERIN OINT 1 INCH/GM PACKET TOPICAL SCH ×5 (00:16→17:24)
[2023-04-16 06:57] LABS: Glucose,Whole Blood 171 mg/dL (70-110)
[2023-04-16] MEDS: ASPIRIN 81 MG PO SCH (07:57)
[2023-04-16] MEDS: INSULIN ASPART (NovoLOG) 100 UNIT/ML VIAL SQ SCH ×4 (07:57→21:06)
[2023-04-16] MEDS: PANTOPRAZOLE 40 MG TABLET PO SCH (07:57)
[2023-04-16] MEDS: EZETIMIBE 10 MG TAB PO SCH (07:57)
[2023-04-16 08:16] LABS: Basophils % (A) 0 %; Eosinophils # (A) 0.1 k/uL (0-0.7); Eosinophils % (A) 0 %; HCT 44.3 % (34.0-46.0); HGB 14.1 gm/dL (11.4-16.0); Lymphocytes # (A) 2.1 k/uL (1.0-4.8); Lymphocytes % (A) 10 %; MCH 29.4 pg (25.0-35.0); MCHC 31.8 g/dL (31.0-37.0); MCV 92.6 fL (80.0-100.0); Mean Platelet Volume 8.1; Monocytes # (A) 1.4 k/uL (0-1.0); Monocytes % (A) 7 %; Neutrophils % (A) 81 %; Platelet Count 197 k/uL (150-450); RBC 4.79 m/uL (3.80-5.40); RDW 13.9 % (11.5-15.5); WBC 20.9 k/uL (3.8-10.6)
[2023-04-16 08:42] LABS: ALT 24 U/L (4-34); AST 25 U/L (14-36); African American GFR (CKD) >90 (>60 ml/min/1.73 sqM); Albumin 3.7 g/dL (3.5-5.0); Alkaline Phosphatase 69 U/L (38-126); Anion Gap 15 mmol/L; Blood Urea Nitrogen 17 mg/dL (7-17); Calcium 9.5 mg/dL (8.4-10.2); Carbon Dioxide 16 mmol/L (22-30); Chloride 104 mmol/L (98-107); Glucose 248 mg/dL (74-99); Non-African American GFR(CKD) 85 (>60 ml/min/1.73 sqM); Potassium 4.8 mmol/L (3.5-5.1); Sodium 135 mmol/L (137-145); Total Bilirubin 0.5 mg/dL (0.2-1.3); Total Protein 6.6 g/dL (6.3-8.2)
[2023-04-16] MEDS ORDERED: NON FORMULARY DRUG (Aspirin [Adult Low Dose Aspirin Ec] 81 MG Tablet) PO SCH (09:00)
[2023-04-16] MEDS ORDERED: ASPIRIN 325 MG TAB PO SCH (09:00)
[2023-04-16] MEDS ORDERED: LOSARTAN 25 MG TAB PO SCH (09:00)
[2023-04-16] MEDS ORDERED: atenoloL 25 MG TAB PO SCH (09:00)
[2023-04-16 11:50] LABS: Glucose,Whole Blood 237 mg/dL (70-110)
[2023-04-16] MEDS: HEPARIN SOD,PORK IN 0.45% NACL 25,000 UNIT in 0.45% NACL 1 250ML.BAG IV SCH (11:57)
[2023-04-16] MEDS: LOSARTAN 50 MG TAB PO SCH ×2 (12:56→21:07)
--- NOTE | 2023-04-16 13:59 | P.PN ---
Subjective Progress Note Date: 04/16/23 SUBJECTIVE: Patient was seen and examined at bedside this a.m. Patient reports feeling better. She denies having any chest pain and back and she came to the hospital with her right radial access site appears to be intact with no evidence of bleeding and good pulses distally. Vitals: 78 beats a minute, blood pressure 149/66 mmHg Labs: Labs shows hemoglobin of 4.1, sodium 135, potassium 4.8, BUN 17, creatinine 0.5 PHYSICAL EXAMINATION Vital signs reviewed. Head: Normocephalic. Eyes: Sclerae nonicteric. Neck: Brisk carotid upstroke, no jugular venous distention. Lungs: Clear to auscultation. Heart: Regular rate and rhythm, S1-S2, no S3, no murmur or rub. Abdomen: Soft nontender, positive bowel sounds no organomegaly. Extremities: No edema, intact distal pulses. ASSESSMENT Persistent chest pressure and back pain along with borderline ECG changes status post urgent cardiac catheterization showing severe diffuse small vessel disease. Chest pain and back pain resolved today Frequent monomorphic PVCs Essential hypertension, lately blood pressure has been uncontrolled. BP 170/100 today Prior history of left-sided breast cancer status post radiation and lymph node dissection PLAN Start aspirin 81 mg, atorvastatin 40 mg. Await echocardiogram results Start metoprolol 25 mg twice a day for PVCs Start Imdur 15 mg , agree with losartan 50 mg daily Monitor blood pressure. Possible discharge tomorrow Follow up outpatient with Dr. Lyman next 1-2 weeks Objective - Vital Signs Vital signs: Vital Signs Temp 97.6 F 04/16/23 11:59 Pulse 59 L 04/16/23 11:59 Resp 18 04/16/23 11:59 BP 197/83 04/16/23 11:59 Pulse Ox 96 04/16/23 11:59 FiO2 Intake & Output 04/15/23 04/16/23 04/16/23 18:59 06:59 18:59 Intake Total 100 915 120 Balance 100 915 120 Weight 81.647 kg Intake: IV 100 Intake, IV Titration 375 Amount Sodium Chloride 0.9% 1, 375 000 ml @ 75 mls/hr IV . [id number] NITA Rx#:[id number] Oral 540 120 Other: # Voids 1 - Labs CBC & Chem 7: 04/16/23 07:50 04/16/23 07:50 Labs: Abnormal Lab Results - Last 24 Hours (Table) 04/15/23 04/16/23 04/16/23 Range/Units 20:08 06:56 07:50 WBC 20.9 H (3.8-10.6) k/uL Neutrophils # 17.0 H (1.3-7.7) k/uL Monocytes # 1.4 H (0-1.0) k/uL Sodium (137-145) mmol/L Carbon Dioxide (22-30) mmol/L Glucose (74-99) mg/dL POC Glucose (mg/dL) 420 H 171 H (70-110) mg/dL 04/16/23 04/16/23 Range/Units 07:50 11:49 WBC (3.8-10.6) k/uL Neutrophils # (1.3-7.7) k/uL Monocytes # (0-1.0) k/uL Sodium 135 L (137-145) mmol/L Carbon Dioxide 16 L (22-30) mmol/L Glucose 248 H (74-99) mg/dL POC Glucose (mg/dL) 237 H (70-110) mg/dL
[2023-04-16 15:11] LABS: Chol/HDL Ratio 3.49 Ratio; LDL Cholesterol,Calculated 31.1 mg/dL (0.0-131.0)
[2023-04-16] MEDS: METOPROLOL TARTRATE 25 MG TAB PO SCH ×2 (16:03→21:07)
[2023-04-16 16:04] LABS: Appearance,Urine Clear (Clear); Bilirubin,Urine Negative (Negative); Blood,Urine Negative (Negative); Color,Urine Colorless; Glucose,Urine (UA) Negative (Negative); Ketones,Urine Negative (Negative); Leukocyte Esterase,Urine Negative (Negative); Nitrite,Urine Negative (Negative); Protein,Urine Negative (Negative); Specific Gravity,Urine 1.008 (1.001-1.035); Urobilinogen,Urine <2.0 mg/dL (<2.0)
--- NOTE | 2023-04-16 16:30 | CA ---
Transthoracic Echo Report Name: Queenie Avila Age: 83 Gender: F : 1940 Exam Date: 04/16/2023 10:40 Exam Location: [place] [facility] Ht (in): 61 Wt (lb): 180 Ordering Physician: Justin Lyman MD ([id number]) Attending/Referring Phys: Bleaching Machine Operator Desire Herbert RDCS Procedure CPT: Indications: Chest Pain Cardiac Hx: Technical Quality: Fair Contrast 1: Total Dose (mL): Contrast 2: Total Dose (mL): MEASUREMENTS (Male / Female) Normal Values 2D ECHO LV Diastolic Diameter PLAX 4.2 cm 4.2 - 5.9 / 3.9 - 5.3 cm LV Systolic Diameter PLAX 2.3 cm IVS Diastolic Thickness 1.5 cm 0.6 - 1.0 / 0.6 - 0.9 cm LVPW Diastolic Thickness 1.4 cm 0.6 - 1.0 / 0.6 - 0.9 cm LV Relative Wall Thickness 0.7 RV Internal Dim ED PLAX 3.3 cm LA Volume 56.2 cm??? 18 - 58 / 22 - 52 cm??? M-MODE Aortic Root Diameter MM 2.7 cm LA Systolic Diameter MM 4.1 cm LA Ao Ratio MM 1.5 AV Cusp Separation MM 1.4 cm DOPPLER AV Peak Velocity 217.8 cm/s AV Peak Gradient 19.0 mmHg AV Mean Velocity 129.0 cm/s AV Mean Gradient 8.0 mmHg AV Velocity Time Integral 42.7 cm LVOT Peak Velocity 139.4 cm/s LVOT Peak Gradient 7.8 mmHg LVOT Velocity Time Integral 38.8 cm MV Area PHT 2.2 cm??? Mitral E Point Velocity 91.8 cm/s Mitral A Point Velocity 129.4 cm/s Mitral E to A Ratio 0.7 MV Deceleration Time 349.8 ms MV E' Velocity 4.9 cm/s Mitral E to MV E' Ratio 18.6 TR Peak Velocity 173.4 cm/s TR Peak Gradient 12.0 mmHg Right Ventricular Systolic Press 17.0 mmHg FINDINGS Left Ventricle Moderately increased left ventricular wall thickness. Left ventricular cavity size normal. Normal left ventricular systolic function with no obvious regional wall motion abnormalities. Left ventricular ejection fraction is estimated at 55-60 %. Right Ventricle Normal right ventricular size and function. Right ventricular systolic pressure within normal limits. Right Atrium Normal right atrial size. Left Atrium Mildly increased left atrial volume. Mitral Valve Structurally normal mitral valve. Mild mitral annular calcification. Mild mitral regurgitation. Aortic Valve Mild aortic stenosis with a peak gradient of 19 mmHg and a mean gradient of 8 mmHg. No aortic regurgitation. Tricuspid Valve Structurally normal tricuspid valve. Mild tricuspid regurgitation. Pulmonic Valve Structurally normal pulmonic valve. Pericardium No pericardial effusion. Aorta Normal size aortic root and proximal ascending aorta. CONCLUSIONS Normal LV size and systolic function. LVEF estimated at 55% No obvious regional wall motion abnormality Moderate concentric LVH Aortic sclerosis with mild aortic stenosis. Mean gradient 8 mmHg No other significant major valvular abnormality Mild left atrial dilatation dilatation No prior echocardiogram to compare within database Previewed by: Dr Justin Lyman (Electronically Signed) Final Date: 16 April 2023 16:29
[2023-04-16 16:45] LABS: Glucose,Whole Blood 183 mg/dL (70-110)
[2023-04-16] MEDS ORDERED: carvediloL 6.25 MG TAB PO SCH (17:30)
[2023-04-16 20:17] LABS: Glucose,Whole Blood 203 mg/dL (70-110)
[2023-04-16] MEDS ORDERED: ATORVASTATIN 40 MG TAB PO SCH (21:00)
--- NOTE | 2023-04-16 22:41 | P.PN ---
Subjective Progress Note Date: 04/16/23 This is a pleasant 83 year old female patient of Dr. Fink. Patient is hospitalized for chest pain which is currently resolved at this time. She underwent cardiac catheterization which reveals no occlusive disease. Echocardiogram showing EF 55-60% with mild aortic stenosis. Her blood pressure was in the 190s systolic today and losartan was increased to BID. Will be monitored overnight. Recently on macrobid outpatient for abnormal urine. She is not having any urinary symptoms at this time and follow up UA is completely normal. White count up to 20. Patient is refusing statin. Review of Systems Constitutional: Denied any fatigue denied any fever. Cardio vascular: denied any chest pain, palpitations Gastrointestinal: denied any nausea, vomiting, diarrhea Pulmonary: Denied any shortness of breath cough Neurologic denied any new focal deficits All inpatient medications were reviewed and appropriate changes in these medications as dictated in the interval history and assessment and plan. Physical exam PHYSICAL EXAMINATION: GENERAL: The patient is alert and oriented x3, not in any acute distress. Well developed, well nourished. HEENT: Pupils are round and equally reacting to light. EOMI. No scleral icterus. No conjunctival pallor. Normocephalic, atraumatic. No pharyngeal erythema. No t hyromegaly. CARDIOVASCULAR: S1 and S2 present. No murmurs, rubs, or gallops. PULMONARY: Chest is clear to auscultation, no wheezing or crackles. ABDOMEN: Soft, nontender, nondistended, normoactive bowel sounds. No palpable organomegaly. MUSCULOSKELETAL: No joint swelling or deformity. EXTREMITIES: No cyanosis, clubbing, or pedal edema. NEUROLOGICAL: Gross neurological examination did not reveal any focal deficits. SKIN: No rashes. Assessment and Plan Chest pain, acute coronary syndrome ruled out by cardiac catheterization which showed no obstructive coronary artery disease. EF 55-60% Mild aortic stenosis Leukocytosis possibly reactive, chest xray and urinalysis unremarkable. Follow up labs in AM. Diabetes mellitus type 2. Hold metformin and continue sliding scale insulin levemir 8 units at HS has been added Blood sugar in the 200s. Hypertension uncontrolled, increase losartan and continue on metoprolol History of left breast cancer status post radiation and lumpectomy in 2009, stable. Hyperlipidemia. Continue Zetia 10 mg daily. DVT prophylaxis. Heparin. GI prophylaxis. Protonix. Full Code Possible D/C home in the AM if blood pressure and white blood cell count have i mproved. The impression and plan of care has been dictated by Carmen Guevara, Nurse Practitioner as directed. Dr. Kian MD I have performed a history and physical examination and medical decision making of this patient, discussed the same with the dictator, and agree with the dictators assessment and plan as written, documented as a scribe. Based on total visit time, I have performed more than 50% of this visit. a Objective - Vital Signs Vital signs: Vital Signs Temp 98.2 F 04/16/23 07:59 Pulse 78 04/16/23 07:59 Resp 18 04/16/23 07:59 BP 149/66 04/16/23 09:09 Pulse Ox 96 04/16/23 07:59 FiO2 Intake & Output 04/15/23 04/16/23 04/16/23 18:59 06:59 18:59 Intake Total 100 915 Balance 100 915 Weight 81.647 kg Intake: IV 100 Intake, IV Titration 375 Amount Sodium Chloride 0.9% 1, 375 000 ml @ 75 mls/hr IV . [id number] [facility] Rx#:[id number] Oral 540 Other: # Voids 1 - Labs CBC & Chem 7: 04/16/23 07:50 04/16/23 07:50 Labs: Abnormal Lab Results - Last 24 Hours (Table) 04/15/23 04/15/23 04/15/23 Range/Units 12:21 12:21 20:08 WBC 16.0 H (3.8-10.6) k/uL Neutrophils # 13.0 H (1.3-7.7) k/uL Monocytes # 1.1 H (0-1.0) k/uL Sodium 133 L (137-145) mmol/L Carbon Dioxide (22-30) mmol/L BUN 20 H (7-17) mg/dL Glucose 175 H (74-99) mg/dL POC Glucose (mg/dL) 420 H (70-110) mg/dL 04/16/23 04/16/23 04/16/23 Range/Units 06:56 07:50 07:50 WBC 20.9 H (3.8-10.6) k/uL Neutrophils # 17.0 H (1.3-7.7) k/uL Monocytes # 1.4 H (0-1.0) k/uL Sodium 135 L (137-145) mmol/L Carbon Dioxide 16 L (22-30) mmol/L BUN (7-17) mg/dL Glucose 248 H (74-99) mg/dL POC Glucose (mg/dL) 171 H (70-110) mg/dL Assessment and Plan Time with Patient: Less than 30
[2023-04-16] MEDS ORDERED: INSULIN DETEMIR (LEVEMIR) 100 UNIT/ML SYR SQ SCH (23:00)
[2023-04-17] MEDS: NITROGLYCERIN OINT 1 INCH/GM PACKET TOPICAL SCH ×3 (00:28→11:56)
[2023-04-17 06:08] LABS: Glucose,Whole Blood 129 mg/dL (70-110)
[2023-04-17] MEDS: INSULIN ASPART (NovoLOG) 100 UNIT/ML VIAL SQ SCH ×2 (06:33→11:56)
[2023-04-17] MEDS: PANTOPRAZOLE 40 MG TABLET PO SCH (06:35)
[2023-04-17 08:17] LABS: Basophils # (A) 0.1 k/uL (0-0.2); Basophils % (A) 0 %; Eosinophils # (A) 0.3 k/uL (0-0.7); Eosinophils % (A) 2 %; HCT 43.2 % (34.0-46.0); HGB 13.6 gm/dL (11.4-16.0); Lymphocytes # (A) 2.6 k/uL (1.0-4.8); Lymphocytes % (A) 19 %; MCH 28.8 pg (25.0-35.0); MCHC 31.5 g/dL (31.0-37.0); MCV 91.3 fL (80.0-100.0); Mean Platelet Volume 8.7; Monocytes # (A) 1.1 k/uL (0-1.0); Monocytes % (A) 9 %; Neutrophils # (A) 8.9 k/uL (1.3-7.7); Neutrophils % (A) 67 %; Platelet Count 203 k/uL (150-450); RBC 4.73 m/uL (3.80-5.40); RDW 14.2 % (11.5-15.5); WBC 13.2 k/uL (3.8-10.6)
[2023-04-17] MEDS ORDERED: ISOSORBIDE MONONITRATE ER 15 MG TAB PO SCH (09:00)
[2023-04-17] MEDS ORDERED: VIT A,C & E-LUTEIN-MINERALS 1 EACH TAB PO SCH (09:00)
[2023-04-17] MEDS: LOSARTAN 50 MG TAB PO SCH (10:32)
[2023-04-17] MEDS: METOPROLOL TARTRATE 25 MG TAB PO SCH (10:32)
[2023-04-17] MEDS: ASPIRIN 81 MG PO SCH (10:32)
[2023-04-17] MEDS: EZETIMIBE 10 MG TAB PO SCH (10:32)
[2023-04-17 11:39] LABS: Glucose,Whole Blood 136 mg/dL (70-110)
[2023-04-17 11:50] VITALS: RESP 16
[2023-04-17] MEDS: HEPARIN SOD,PORK IN 0.45% NACL 25,000 UNIT in 0.45% NACL 1 250ML.BAG IV SCH (11:56)
--- NOTE | 2023-04-17 14:27 | P.PN ---
Subjective Progress Note Date: 04/17/23 SUBJECTIVE: Patient was seen and examined at bedside this a.m. Patient reports feeling better. She denies having any chest pain and back and she came to the hospital with her right radial access site appears to be intact with no evidence of bleeding and good pulses distally. Vitals: 78 beats a minute, blood pressure 149/66 mmHg PHYSICAL EXAMINATION Vital signs reviewed. Head: Normocephalic. Eyes: Sclerae nonicteric. Neck: Brisk carotid upstroke, no jugular venous distention. Lungs: Clear to auscultation. Heart: Regular rate and rhythm, S1-S2, no S3, no murmur or rub. Abdomen: Soft nontender, positive bowel sounds no organomegaly. Extremities: No edema, intact distal pulses. ASSESSMENT Persistent chest pressure and back pain along with borderline ECG changes status post urgent cardiac catheterization showing severe diffuse small vessel disease. Chest pain and back pain resolved today Frequent monomorphic PVCs Essential hypertension, lately blood pressure has been uncontrolled. BP 170/100 today Prior history of left-sided breast cancer status post radiation and lymph node dissection PLAN Start aspirin 81 mg, atorvastatin 40 mg. Start metoprolol 25 mg twice a day for PVCs Start Imdur 15 mg , agree with losartan 50 mg daily ok to discharge today Follow up outpatient with Dr. Lyman next 1-2 weeks Objective - Vital Signs Vital signs: Vital Signs Temp 97.8 F 04/17/23 10:20 Pulse 60 04/17/23 10:20 Resp 16 04/17/23 10:20 BP 178/84 04/17/23 10:20 Pulse Ox 94 L 04/17/23 10:20 FiO2 Intake & Output 04/16/23 04/17/23 04/17/23 18:59 06:59 18:59 Intake Total 600 540 120 Output Total 0 Balance 600 540 120 Intake: Oral 600 540 120 Output: Gastric Drainage 0 Urine 0 Stool 0 Urine/Stool Mix 0 Emesis 0 Oral Regurgitation 0 Other 0 Other: # Voids 0 1 # Bowel Movements 0 - Labs CBC & Chem 7: 04/17/23 08:01 04/16/23 07:50 Labs: Abnormal Lab Results - Last 24 Hours (Table) 04/15/23 04/16/23 04/16/23 Range/Units 12:21 07:50 16:43 WBC (3.8-10.6) k/uL Neutrophils # (1.3-7.7) k/uL Monocytes # (0-1.0) k/uL POC Glucose (mg/dL) 183 H (70-110) mg/dL Hemoglobin A1c 7.2 H (<=6.0) % Triglycerides 180.00 H (0.00-149.00) mg/dL HDL Cholesterol 26.90 L (40.00-60.00) mg/dL 04/16/23 04/17/23 04/17/23 Range/Units 20:16 06:06 08:01 WBC 13.2 H (3.8-10.6) k/uL Neutrophils # 8.9 H (1.3-7.7) k/uL Monocytes # 1.1 H (0-1.0) k/uL POC Glucose (mg/dL) 203 H 129 H (70-110) mg/dL Hemoglobin A1c (<=6.0) % Triglycerides (0.00-149.00) mg/dL HDL Cholesterol (40.00-60.00) mg/dL 04/17/23 Range/Units 11:37 WBC (3.8-10.6) k/uL Neutrophils # (1.3-7.7) k/uL Monocytes # (0-1.0) k/uL POC Glucose (mg/dL) 136 H (70-110) mg/dL Hemoglobin A1c (<=6.0) % Triglycerides (0.00-149.00) mg/dL HDL Cholesterol (40.00-60.00) mg/dL
[2023-04-17 14:38] VITALS: BP 151/68; PULSE 56; TEMP 98.1
--- NOTE | 2023-04-17 14:59 | P.DS ---
Providers Date of admission: 04/15/23 12:32 Attending physician: Lokesh Fink Consults: 04/15/23 12:32 Consult Physician Urgent Consulting Provider: Justin Lyman Consult Reason/Comments: stemi Do you want consulting provider notified?: Already Contacted Primary care physician: Lokesh Fink Hospital Course: Final Diagnosis Chest pain, acute coronary syndrome ruled out by cardiac catheterization which showed no obstructive coronary artery disease. EF 55-60% Mild aortic stenosis Leukocytosis possibly reactive, chest xray and urinalysis unremarkable. Follow up labs in AM. Diabetes mellitus type 2. Hold metformin and continue sliding scale insulin levemir 8 units at HS has been added Blood sugar in the 200s. Hypertension uncontrolled, increase losartan and continue on metoprolol History of left breast cancer status post radiation and lumpectomy in 2009, stable. Hyperlipidemia. Continue Zetia 10 mg daily. DVT prophylaxis. Heparin. GI prophylaxis. Protonix. Full Code Discharge Disposition Patient is stable for discharge home. Patient to follow up with her known supervisor rolling room Dr. Shoemaker in the office. Patient to see her PCP Dr. Fink in 1 to 2 days after discharge. Patient has been started on isosorbide mononitrate extended release 60 mg daily, she was transitioned from normal to metoprolol. Additionally losartan was increased up to 50 mg twice a day. Patient's blood pressure has improved. Recommend to repeat labs in 2-3 days with a CBC and BMP. Hospital course This is an 83-year-old female with medical history of left breast cancer with radiation and lumpectomy, hypertension, hyperlipidemia, diabetes mellitus type 2. Patient presents to the hospital for chest pain with radiation into the neck and back. Her troponins were unremarkable EKG was concerning for mild ST elevation in the inferior and anterolateral leads and patient was classified as a STEMI and taken for emergency cardiac catheterization which did show no obstructive coronary artery disease. Patient was having uncontrolled hypertension requiring medication adjustments with the addition of losartan, Imdur and metoprolol. Metformin was held to avoid any contrast-induced nephropathy from cardiac catheterization. Patient was given NovoLog sliding scale. An echocardiogram was done revealing an EF of 55% with mild aortic stenosis. There is also mild left atrial dilation. Patient was recently treated for a urinary tract infection outpatient with Macrobid she did have a elevated white count on admission up to 20 repeat urinalysis was completely unremarkable. No fever chest x-ray was clear. Her white count is improved down to 13.2. Currently denying any chest pressure denying chest pain or 3 focal neurological exam is negative. Lungs are clear S1-S2 auscultated abdomen is soft and nontender. Patient is cleared for discharge home with medication changes as above. Please see medication reconciliation for list of current medication. Thank you for allowing us to participate in the care of this patient. The impression and plan of care has been dictated by Carmen Guevara, Nurse Practitioner as directed. Dr. Kian MD I have performed a history and physical examination and medical decision making of this patient, discussed the same with the dictator, and agree with the dictators assessment and plan as written, documented as a scribe. Based on total visit time, I have performed more than 50% of this visit. Patient Condition at Discharge: Serious Plan - Discharge Summary Discharge Rx Participant: No New Discharge Prescriptions: New Isosorbide Mononitrate ER [Imdur] 15 mg PO DAILY #30 tab Metoprolol Tartrate [Lopressor] 25 mg PO BID #60 tab Losartan [Cozaar] 50 mg PO BID #60 tab Pantoprazole [Protonix] 40 mg PO AC-BRKFST #30 tab Continue Aspirin [Adult Low Dose Aspirin EC] 81 mg PO DAILY Rosuvastatin Calcium 5 mg PO PC-LUNCH Vit C/E/Zn/Coppr/Lutein/Zeaxan [Preservision Areds 2 Softgel] 1 cap PO BID metFORMIN HCL [Glucophage] 500 mg PO PC-LUNCH Ezetimibe [Zetia] 10 mg PO PC-LUNCH Discontinued atenoloL 25 mg PO BID Discharge Medication List Aspirin [Adult Low Dose Aspirin EC] 81 mg PO DAILY 08/05/21 [History] Vit C/E/Zn/Coppr/Lutein/Zeaxan [Preservision Areds 2 Softgel] 1 cap PO BID 08/05/21 [History] Ezetimibe [Zetia] 10 mg PO PC-LUNCH 04/15/23 [History] Rosuvastatin Calcium 5 mg PO PC-LUNCH 04/15/23 [History] metFORMIN HCL [Glucophage] 500 mg PO PC-LUNCH 04/15/23 [History] Isosorbide Mononitrate ER [Imdur] 15 mg PO DAILY #30 tab 04/17/23 [Rx] Losartan [Cozaar] 50 mg PO BID #60 tab 04/17/23 [Rx] Metoprolol Tartrate [Lopressor] 25 mg PO BID #60 tab 04/17/23 [Rx] Pantoprazole [Protonix] 40 mg PO AC-BRKFST #30 tab 04/17/23 [Rx] Follow up Appointment(s)/Referral(s): Cardiology, [Other] - 1 Week (Please schedule an apointment with your supervisor rolling room for 1-2 weeks) Lokesh Fink MD [Primary Care Provider] - 1-2 days (Office is closed. Please call to schedule appointment) Ambulatory/Diagnostic Orders: Basic Metabolic Panel [LAB.AMB] Time Frame: 3 Days, Location: None Selected Complete Blood Count w/diff [LAB.AMB] Time Frame: 3 Days, Location: None Selected Patient Instructions/Handouts: *Surgery [facility] - After Heart Catheterization - Canvas Cutter Hand Instructions Activity/Diet/Wound Care/Special Instructions: Repeat labs in 2 to 3 days and follow up with Dr. Fink next week Discharge Disposition: HOME SELF-CARE
[2023-04-17 23:12] LABS: Chol/HDL Ratio 2.75 Ratio; LDL Cholesterol,Calculated 44.6 mg/dL (0.0-131.0); VLDL Calculation 18.96 mg/dL (5.00-40.00)
== END 2023-04-17 14:59 | disposition home or self-care (01) | DRG 287 ==
LOC: EC 11:48 → 2SICU 12:32 → 3SCARD 13:49
PROVIDERS: ADMIT Internal Medicine; ATTEND Internal Medicine
PROC: B2111ZZ Fluoroscopy of Multiple Coronary Arteries using Low Osmolar Contrast (ICD-10-PCS; 2023-04-15)
PROC: 4A023N7 Measurement of Cardiac Sampling and Pressure, Left Heart, Percutaneous Approach (ICD-10-PCS; principal; 2023-04-15 18:25)
DX: I35.0 Nonrheumatic aortic (valve) stenosis (principal); E78.5 Hyperlipidemia, unspecified; F32.A Depression, unspecified; I10 Essential (primary) hypertension; E11.9 Type 2 diabetes mellitus without complications; I25.10 Atherosclerotic heart disease of native coronary artery without angina pectoris; I49.3 Ventricular premature depolarization; M54.9 Dorsalgia, unspecified; I25.2 Old myocardial infarction; M06.9 Rheumatoid arthritis, unspecified; F41.1 Generalized anxiety disorder; K21.9 Gastro-esophageal reflux disease without esophagitis; M19.90 Unspecified osteoarthritis, unspecified site; I08.1 Rheumatic disorders of both mitral and tricuspid valves; G43.909 Migraine, unspecified, not intractable, without status migrainosus; Z87.19 Personal history of other diseases of the digestive system; Z85.3 Personal history of malignant neoplasm of breast; Z92.3 Personal history of irradiation; Z79.82 Long term (current) use of aspirin; Z79.4 Long term (current) use of insulin; Z79.899 Other long term (current) drug therapy; Z82.49 Family history of ischemic heart disease and other diseases of the circulatory system; Z91.041 Radiographic dye allergy status; Z90.710 Acquired absence of both cervix and uterus; Z96.1 Presence of intraocular lens; Z96.643 Presence of artificial hip joint, bilateral; Z96.652 Presence of left artificial knee joint; Z98.42 Cataract extraction status, left eye; Z98.41 Cataract extraction status, right eye; Z88.6 Allergy status to analgesic agent; Z88.8 Allergy status to other drugs, medicaments and biological substances; Z91.048 Other nonmedicinal substance allergy status; Z88.7 Allergy status to serum and vaccine
CPT/HCPCS: 36415; 71045; 80053; 80061; 81003; 83036; 83735; 84484; 85025; 85379; 85610; 85730; 93005; 93306; 94760; 96374; 96375; 99291

== ENCOUNTER 2023-11-29 09:24 | Emergency (ER) | payer MEDICARE, BC ==
--- NOTE | 2023-11-29 09:51 | ED ---
General Adult HPI - General Chief complaint: Nausea/Vomiting/Diarrhea Stated complaint: Nausea Time Seen by Provider: 11/29/23 09:33 Source: patient, EMS Mode of arrival: EMS Limitations: no limitations - History of Present Illness Initial comments: Dictation was produced using [employer] dictation software. please excuse any grammatical, word or spelling errors. Chief Complaint: 83-year-old female with episode of weakness History of Present Illness: Patient is 83-year-old female she has history of diabetes, GI bleed, dyslipidemia hypertension NC. States that she woke up around 4:00 this morning to start her day when all of a sudden she felt so weak that she was unable to get out of bed. She was so weak that she could not even turn rapid running to try to set up. Patient states it lasted for several minutes. She decided to call EMS brought to the emergency department. Patient allegedly had some nausea and vomiting per EMS. Patient denies any abdominal pain. States that she had some night sweats last night. She however denies any fever. EMS provided patient with Anthony The ROS documented in this emergency department record has been reviewed and confirmed by me. Those systems with pertinent positive or negative responses have been documented in the HPI. All other systems are other negative and/or noncontributory. - Related Data Home Medications Medication Instructions Recorded Confirmed Aspirin [Adult Low Dose Aspirin EC] 81 mg PO DAILY 08/05/21 04/15/23 Vit C/E/Zn/Coppr/Lutein/Zeaxan 1 cap PO BID 08/05/21 04/15/23 [Preservision Areds 2 Softgel] Ezetimibe [Zetia] 10 mg PO PC-LUNCH 04/15/23 04/15/23 Rosuvastatin Calcium 5 mg PO PC-LUNCH 04/15/23 04/15/23 metFORMIN HCL [Glucophage] 500 mg PO PC-LUNCH 04/15/23 04/15/23 Previous Rx's Medication Instructions Recorded Isosorbide Mononitrate ER [Imdur] 15 mg PO DAILY #30 tab 04/17/23 Losartan [Cozaar] 50 mg PO BID #60 tab 04/17/23 Metoprolol Tartrate [Lopressor] 25 mg PO BID #60 tab 04/17/23 Pantoprazole [Protonix] 40 mg PO AC-BRKFST #30 tab 04/17/23 Allergies Allergy/AdvReac Type Severity Reaction Status Date / Time aspirin Allergy Unknown Verified 11/29/23 09:36 [From Excedrin Extra Strength] caffeine Allergy Unknown Verified 11/29/23 09:36 [From Excedrin Extra Strength] celecoxib [From Celebrex] Allergy Rash/Hives Verified 11/29/23 09:36 duloxetine Allergy Unknown Verified 11/29/23 09:36 escitalopram Allergy Unknown Verified 11/29/23 09:36 iodine Allergy Swelling Verified 11/29/23 09:36 latex Allergy Anaphylaxis Verified 11/29/23 09:36 niacin Allergy Rash/Hives Verified 11/29/23 09:36 Penicillins Allergy Rash/Hives Verified 11/29/23 09:36 povidone-iodine Allergy Rash/Hives Verified 11/29/23 09:36 [From Betadine] simvastatin Allergy Unknown Verified 11/29/23 09:36 sulfamethoxazole Allergy Unknown Verified 11/29/23 09:36 [From Septra] trimethoprim [From Septra] Allergy Unknown Verified 11/29/23 09:36 acetaminophen [From Tylenol] AdvReac makes Verified 11/29/23 09:36 migraines worse atorvastatin calcium AdvReac muscle pain Verified 11/29/23 09:36 [From Lipitor] naproxen sodium [From Aleve] AdvReac migraines Verified 11/29/23 09:36 warfarin sodium AdvReac Vomiting Verified 11/29/23 09:36 [From Coumadin] ivory soap Allergy Unknown Uncoded 11/29/23 09:36 Review of Systems ROS Statement: Those systems with pertinent positive or pertinent negative responses have been documented in the HPI. ROS Other: All systems not noted in ROS Statement are negative. Past Medical History Past Medical History: Cancer, Diabetes Mellitus, GERD/Reflux, GI Bleed, Hyperlipidemia, Hypertension, Myocardial Infarction (NC), Osteoarthritis (OA), Rheumatoid Arthritis (RA) Additional Past Medical History / Comment(s): Hx migraines. Left breast cancer 2009, 31 radiation tx. Diabetic "borderline" - diet controlled. Rectal bleeding 08/05/21 for 4 days. Last Myocardial Infarction Date:: unknown History of Any Multi-Drug Resistant Organisms: None Reported Past Surgical History: Breast Surgery, Hysterectomy, Joint Replacement, Orthopedic Surgery Additional Past Surgical History / Comment(s): left breast lumpectomy, left knee arthroscopy, bilat cataracts, rt hand surgery-tumor removed from index finger, Bilat Hip Replacement. Colonoscopy, EGD Past Anesthesia/Blood Transfusion Reactions: Previous Problems w/ Anesthesia, Motion Sickness, Postoperative Nausea & Vomiting (PONV) Additional Past Anesthesia/Blood Transfusion Reaction / Comment(s): "after EGD had dislocated jaw, ear ache for 3 weeks, and dislocated rt shoulder-not sure what happened," "vomited for 2 days after hip surgery" Past Psychological History: Anxiety, Depression Smoking Status: Former smoker Past Alcohol Use History: None Reported Past Drug Use History: None Reported - Past Family History Father Family Medical History: Cancer Additional Family Medical History / Comment(s): lung cancer Daughter(s) Family Medical History: Cancer Additional Family Medical History / Comment(s): skin Brother(s) Family Medical History: Cancer Additional Family Medical History / Comment(s): unsure of type of cancer General Exam - General Exam Comments Initial Comments: PHYSICAL EXAM: General Impression: Alert and oriented x3, not in acute distress HEENT: Normocephalic atraumatic, extra-ocular movements intact, pupils equal and reactive to light bilaterally, mucous membranes moist. Cardiovascular: Heart regular rate and rhythm Chest: Able to complete full sentences, no retractions, no tachypnea Abdomen: abdomen soft, non-tender, non-distended, no organomegaly Musculoskeletal: Pulses present and equal in all extremities, no peripheral edema Motor: no focal deficits noted Neurological: CN II-XII grossly intact, no focal motor or sensory deficits noted Skin: Intact with no visualized rashes Psych: Normal affect and mood Limitations: no limitations Course Vital Signs 11/29/23 09:33 Temperature 97.7 F Pulse Rate 71 Respiratory 18 Rate Blood Pressure 162/97 O2 Sat by Pulse 95 Oximetry EKG Findings - EKG Comments: EKG Findings:: My EKG interpretation: Ventricular rate 72, sinus rhythm,. 08/02/1938, cures 91, QTc 408. No ND prolongation, no QTC prolongation, no ST or T-wave changes noted. EKG compared to April 16, 2023 showing no changes. Overall, this EKG is unremarkable Medical Decision Making - Medical Decision Making Was pt. sent in by a medical professional or institution (, PA, MATERIALS SCHEDULER, urgent care, hospital, or skilled nursing...) When possible be specific @ -No Did you speak to anyone other than the patient for history (EMS, parent, family, police, friend...)? What history was obtained from this source @ -Daughter at the bedside states that patient seems a little off Did you review nursing and triage notes (agree or disagree)? Why? @ -I reviewed and agree with nursing and triage notes Were old charts reviewed (outside hosp., previous admission, EMS record, old EKG, old radiological studies, urgent care reports/EKG's, skilled nursing records)? Report findings @ -No old charts were reviewed Differential Diagnosis (chest pain, altered mental status, abdominal pain women, abdominal pain men, vaginal bleeding, musculoskeletal, weakness, fever, dyspnea, syncope, headache, dizziness, GI bleed, back pain, seizure, CVA, palpatations, mental health)? @ -Differential Weakness: Hypoglycemia, shock, sepsis, hyponatremia, anemia, infection, NC, ETOH, adverse medicine reaction, overdose, stroke, this is not meant to be an all-inclusive list. EKG interpreted by me (3pts min.). @ -See above X-rays interpreted by me (1pt min.). @ -Chest x-ray is nonacute CT interpreted by me (1pt min.). @ -CT scan of the brain shows no acute processes U/S interpreted by me (1pt. min.). @ -None done What testing was considered but not performed or refused? (CT, X-rays, U/S, labs)? Why? @ -None What meds were considered but not given or refused? Why? @ -None Did you discuss the management of the patient with other professionals (professionals i.e. , PA, MATERIALS SCHEDULER, lab, RT, psych nurse, social work msw, webmethods consultant, teacher, credit officer, case packer and sealer)? Give summary @ -No Was smoking cessation discussed for >3mins.? @ -No Was critical care preformed (if so, how long)? @ -No Were there social determinants of health that impacted care today? How? (Homelessness, low income, unemployed, alcoholism, drug addiction, transportation, low edu. Level, literacy, decrease access to med. care, correction, rehab)? @ -No Was there de-escalation of care discussed even if they declined (Discuss DNR or withdrawal of care, Hospice)? DNR status @ -No What co-morbidities impacted this encounter? (DM, HTN, Smoking, COPD, CAD, Cancer, CVA, ARF, Chemo, Hep., AIDS, mental health diagnosis, sleep apnea, morbid obesity)? @ -None Was patient admitted / discharged? Hospital course, mention meds given and route, prescriptions, significant lab abnormalities, going to OR and other pertinent info. @ -83-year-old female presents to the emergency department for episode of generalized weakness that she describes as not being able to move for several minutes. EMS was called patient was brought here for nausea and vomiting. Patient well-appearing at the bedside. Vital signs are stable. She has no focal neurologic deficits. Laboratory evaluation obtained. CBC metabolic panel and urinalysis negative. Imaging studies are negative. CT brain chest x-ray shows no acute processes. Patient observed emergency department for approximately 2 hours and 47 minutes. Reevaluated bedside at 12:12 PM to be in stable medical addition. Disposition options were discussed. Patient is agreeable for discharge. She is advised to follow-up with her primary care doctor. At this point patient has no high risk features. It is unclear what caused her weakness earlier today. Undiagnosed new problem with uncertain prognosis? @ -No Drug Therapy requiring intensive monitoring for toxicity (Heparin, Nitro, Insulin, Cardizem)? @ -No Were any procedures done? @ -No Diagnosis/symptom? Acute, or Chronic, or Acute on Chronic? Uncomplicated (without systemic symptoms) or Complicated (systemic symptoms)? @ -Episode of weakness Side effects of treatment? @ -No Exacerbation, Progression, or Severe Exacerbation? @ -No Poses a threat to life or bodily function? How? (Chest pain, USA, NC, pneumonia, PE, COPD, DKA, ARF, appy, cholecystitis, CVA, Diverticulitis, Homicidal, Suicidal, threat to staff... and all critical care pts) @ -No - Lab Data Result diagrams: 11/29/23 10:29 11/29/23 10:29 Lab Results 11/29/23 11/29/23 11/29/23 Range/Units 10: 10: 11:32 WBC 7.7 (3.8-10.6) k/uL RBC 4.46 (3.80-5.40) m/uL Hgb 13.1 (11.4-16.0) gm/dL Hct 39.0 (34.0-46.0) % MCV 87.5 (80.0-100.0) fL MCH 29.5 (25.0-35.0) pg MCHC 33.7 (31.0-37.0) g/dL RDW 13.8 (11.5-15.5) % Plt Count 146 L (150-450) k/uL MPV 8.8 Neutrophils % 67 % Lymphocytes % 18 % Monocytes % 10 % Eosinophils % 2 % Basophils % 0 % Neutrophils # 5.2 (1.3-7.7) k/uL Lymphocytes # 1.4 (1.0-4.8) k/uL Monocytes # 0.8 (0-1.0) k/uL Eosinophils # 0.1 (0-0.7) k/uL Basophils # 0.0 (0-0.2) k/uL Sodium 133 L (137-145) mmol/L Potassium 4.5 (3.5-5.1) mmol/L Chloride 103 (98-107) mmol/L Carbon Dioxide 25 (22-30) mmol/L Anion Gap 5 mmol/L BUN 18 H (7-17) mg/dL Creatinine 0.49 L (0.52-1.04) mg/dL Est GFR (CKD-EPI)AfAm >90 (>60 ml/min/1.73 sqM) Est GFR (CKD-EPI)NonAf 89 (>60 ml/min/1.73 sqM) Glucose 135 H (74-99) mg/dL Calcium 8.7 (8.4-10.2) mg/dL Magnesium 1.8 (1.6-2.3) mg/dL Total Bilirubin 0.7 (0.2-1.3) mg/dL AST 23 (14-36) U/L ALT 25 (4-34) U/L Alkaline Phosphatase 75 (38-126) U/L Total Protein 6.3 (6.3-8.2) g/dL Albumin 3.6 (3.5-5.0) g/dL Urine Color Colorless Urine Appearance Clear (Clear) Urine pH 6.5 (5.0-8.0) Ur Specific [place] 1.013 (1.001-1.035) Urine Protein Negative (Negative) Urine Glucose (UA) Negative (Negative) Urine Ketones Negative (Negative) Urine Blood Negative (Negative) Urine Nitrite Negative (Negative) Urine Bilirubin Negative (Negative) Urine Urobilinogen <2.0 (<2.0) mg/dL Ur Leukocyte Esterase Negative (Negative) Disposition Clinical Impression: Weakness Disposition: HOME SELF-CARE Condition: Fair Instructions (If sedation given, give patient instructions): Weakness (ED) Is patient prescribed a controlled substance at d/c from ED?: No Referrals: Lokesh Fink MD [Primary Care Provider] - 1-2 days Time of Disposition: 12:13
[2023-11-29 10:20] VITALS: RESP 18
[2023-11-29 10:39] LABS: Basophils % (A) 0 %; Eosinophils # (A) 0.1 k/uL (0-0.7); Eosinophils % (A) 2 %; HGB 13.1 gm/dL (11.4-16.0); Lymphocytes # (A) 1.4 k/uL (1.0-4.8); Lymphocytes % (A) 18 %; MCH 29.5 pg (25.0-35.0); MCHC 33.7 g/dL (31.0-37.0); MCV 87.5 fL (80.0-100.0); Mean Platelet Volume 8.8; Monocytes # (A) 0.8 k/uL (0-1.0); Monocytes % (A) 10 %; Neutrophils # (A) 5.2 k/uL (1.3-7.7); Neutrophils % (A) 67 %; Platelet Count 146 k/uL (150-450); RBC 4.46 m/uL (3.80-5.40); RDW 13.8 % (11.5-15.5); WBC 7.7 k/uL (3.8-10.6)
[2023-11-29 10:59] LABS: ALT 25 U/L (4-34); AST 23 U/L (14-36); African American GFR (CKD) >90 (>60 ml/min/1.73 sqM); Albumin 3.6 g/dL (3.5-5.0); Alkaline Phosphatase 75 U/L (38-126); Anion Gap 5 mmol/L; Blood Urea Nitrogen 18 mg/dL (7-17); Calcium 8.7 mg/dL (8.4-10.2); Carbon Dioxide 25 mmol/L (22-30); Chloride 103 mmol/L (98-107); Glucose 135 mg/dL (74-99); Magnesium 1.8 mg/dL (1.6-2.3); Non-African American GFR(CKD) 89 (>60 ml/min/1.73 sqM); Sodium 133 mmol/L (137-145); Total Bilirubin 0.7 mg/dL (0.2-1.3); Total Protein 6.3 g/dL (6.3-8.2)
--- NOTE | 2023-11-29 11:05 | XR ---
EXAMINATION TYPE: XR chest 2V DATE OF EXAM: 11/29/2023 10:56 AM CLINICAL INDICATION:Female, 83 years old with history of generalized weakness; [facility] COMPARISON: Chest radiographs from 04/15/2023. TECHNIQUE: XR chest 2V Frontal and lateral views of the chest. FINDINGS: Lungs/Pleura: There is no evidence of pleural effusion, focal consolidation, or pneumothorax. Pulmonary vascularity: Unremarkable. Heart/mediastinum: Cardiomediastinal silhouette is enlarged and stable. Musculoskeletal: Degenerative changes of the shoulder joints. Surgical clips project over the left breast lower/chest wall. IMPRESSION: No acute cardiopulmonary disease/process.
[2023-11-29 11:23] LABS: Potassium 4.5 mmol/L (3.5-5.1)
--- NOTE | 2023-11-29 11:25 | CT ---
EXAMINATION TYPE: CT brain wo con CT DLP: 1165 mGycm, Automated exposure control for dose reduction was used. DATE OF EXAM: 11/29/2023 11:20 AM COMPARISON: None. CLINICAL INDICATION:Female, 83 years old with history of generalized weakness, TECHNIQUE: Brain: Axial CT images of the brain were obtained with coronal and sagittal reformats created and rev iewed. Contrast used: None. Oral contrast used: None. FINDINGS: Brain: Extra-axial spaces: No abnormal extra-axial fluid collections. Ventricular system: Dilatation in proportion to cerebral atrophy. Cerebral parenchyma: Cerebral atrophy. No acute intraparenchymal hemorrhage or mass effect. The raman -white junction is well differentiated. Scattered hypoattenuating areas are seen within the white mat ter. Cerebellum: Unremarkable. Mass effect: No evidence of midline shift. Intracranial vasculature: unremarkable Soft tissues: Normal. Calvarium/osseous structures: No depressed skull fracture. Paranasal sinuses and mastoid air cells: Mild scattered paranasal sinus disease. Visualized orbits: Bilateral aphakia IMPRESSION: 1. No acute intracranial process. 2. Nonspecific white matter changes, likely secondary to chronic small vessel ischemic disease.
[2023-11-29 12:02] LABS: Appearance,Urine Clear (Clear); Bilirubin,Urine Negative (Negative); Blood,Urine Negative (Negative); Color,Urine Colorless; Glucose,Urine (UA) Negative (Negative); Ketones,Urine Negative (Negative); Leukocyte Esterase,Urine Negative (Negative); Nitrite,Urine Negative (Negative); PH, Urine 6.5 (5.0-8.0); Protein,Urine Negative (Negative); Specific Gravity,Urine 1.013 (1.001-1.035); Urobilinogen,Urine <2.0 mg/dL (<2.0)
[2023-11-29 13:18] VITALS: BP 150/78; PULSE 78; TEMP 98.1
== END 2023-11-29 12:53 | disposition home or self-care (01) ==
LOC: EC 09:24
DX: R53.1 Weakness (principal); Z87.891 Personal history of nicotine dependence; Z88.2 Allergy status to sulfonamides; Z88.1 Allergy status to other antibiotic agents; Z88.8 Allergy status to other drugs, medicaments and biological substances; Z88.0 Allergy status to penicillin; Z91.040 Latex allergy status; Z91.041 Radiographic dye allergy status
CPT/HCPCS: 36415; 70450; 71046; 80053; 81003; 83735; 85025; 93005; 99285

== ENCOUNTER → 2024-10-04 | Outpatient (CLI) | payer MEDICARE, BC ==
--- NOTE | 2024-10-05 09:31 | CT ---
EXAMINATION TYPE: CT iac wo con CT DLP: 142.7 mGycm, Automated exposure control for dose reduction was used. DATE OF EXAM: 10/04/2024 5:42 PM INDICATION: Patient age:Female; 84 years old; Reason for study: H93.11; [facility]. COMPARISON: CT brain 11/29/2023. TECHNIQUE: Multiple thin axial images were obtained through the temporal bones and internal auditory canals. Additional coronal reformatted images were obtained. No IV contrast was utilized. FINDINGS: Right Temporal Bone: External Ear: The external auditory canal is unremarkable, The tympanic membrane is present and unrem arkable. Middle Ear: The ossicles demonstrate a normal appearance. Prussak's space is clear and the scutum i s intact. There is no evidence of osseous erosion and the tegmen tympani is intact. Inner Ear: Cochlea, vestibule and semi circular canals are unremarkable. No evidence of carotid jaida l dehiscence. Two and a half turns of the cochlea are identified. The vestibular aqueduct is not enl arged. Mastoid Air Cells: The mastoid air cells are clear. The tegmen mastoideum is intact. The aditus ad an trum is clear. Internal Auditory Canal: The internal auditory canal is unremarkable. Left Temporal Bone: External Ear: The external auditory canal is unremarkable, The tympanic membrane is present and unrem arkable. Middle Ear: The ossicles demonstrate a normal appearance. Prussak's space is clear and the scutum i s intact. There is no evidence of osseous erosion and the tegmen tympani is intact. Inner Ear: Cochlea, vestibule and semi circular canals are unremarkable. No evidence of carotid jaida l dehiscence. Two and a half turns of the cochlea are identified. The vestibular aqueduct is not enl arged. Mastoid Air Cells: The mastoid air cells are clear. The tegmen mastoideum is intact. The aditus ad an trum is clear. Internal Auditory Canal: The internal auditory canal is unremarkable. Mild mucosal thickening of the inferior right maxillary sinus and minimal mucosal thickening in the i nferior left maxillary sinus. Atherosclerotic calcification of the bilateral carotid siphons. IMPRESSION: No internal auditory canal abnormality identified. [facility], , 10/05/2024 9:29 AM
== END | disposition home or self-care (01) ==
LOC: RADCTMAIN 17:23
PROVIDERS: ATTEND Internal Medicine
DX: H93.11 Tinnitus, right ear (principal)
CPT/HCPCS: 70480